=== PATIENT | male | born 1960 | race Caucasian/White ===

== ENCOUNTER 2019-06-13 20:27 | Emergency (ER) | payer OTHER ==
[2019-06-13] MEDS ORDERED: LIDOCAINE 1% INJ 10MG/ML (20 ML MDV) SQ STA (21:44)
--- NOTE | 2019-06-13 21:47 | XR ---
EXAMINATION TYPE: XR hand complete LT DATE OF EXAM: 06/13/2019 COMPARISON: NONE HISTORY: Little finger injury TECHNIQUE: 4 views FINDINGS: There is anterior dislocation of the PIP joint of the little finger. I see no fracture line . IMPRESSION: Anterior dislocation of the PIP joint of the little finger.
[2019-06-13 22:19] VITALS: BP 160/88; PULSE 92; RESP 18; TEMP 96.8
--- NOTE | 2019-06-13 22:24 | ED ---
General Adult HPI - General Chief complaint: Extremity Injury, Upper Stated complaint: Finger injury Time Seen by Provider: 06/13/19 21:18 Source: patient, RN notes reviewed, old records reviewed Mode of arrival: ambulatory Limitations: no limitations - History of Present Illness Initial comments: 59-year-old male patient presented to ED chief complaint dislocation PIP joint left pinky. Patient was wrestling with a friend and got caught underneath him. Patient reports this occurred approximately 5 hours ago. Patient reports that he attempted to reduce himself and was unsuccessful. Denies new injury. Denies any other complaints. Systemic: Pt denies fatigue, fever/chills, rash. Pt denies weakness, night sweats, weight loss. Neuro: Pt denies headache, visual disturbances, syncope or pre-syncope. HEENT: Pt denies ocular discharge or irritation, otalgia, rhinorrhea, pharyngitis or notable lymphadenopathy. Cardiopulmonary: Pt denies chest pain, SOB, heart palpitations, dyspnea on exertion. Abdominal/GI: Pt denies abdominal pain, n/v/d. : Pt denies dysuria, burning w/ urination, frequency/urgency. Denies new onset urinary or bowel incontinence. MSK: Pt denies myalgia, loss of strength or function in extremities. Neuro: Pt denies new onset weakness, paresthesias. - Related Data Allergies Allergy/AdvReac Type Severity Reaction Status Date / Time No Known Allergies Allergy Verified 06/13/19 21:07 Review of Systems ROS Statement: Those systems with pertinent positive or pertinent negative responses have been documented in the HPI. ROS Other: All systems not noted in ROS Statement are negative. Past Medical History Past Medical History: Hypertension History of Any Multi-Drug Resistant Organisms: None Reported Past Surgical History: Appendectomy, Ear Surgery Past Psychological History: No Psychological Hx Reported Smoking Status: Current every day smoker Past Alcohol Use History: Occasional Past Drug Use History: None Reported General Exam - General Exam Comments Initial Comments: Constitutional: NAD, AOX3, Pt has pleasant affect. HEENT: NC/AT, trachea midline, neck supple, no lymphadenopathy. Posterior pharynx non erythematous, without exudates. External ears appear normal, without discharge. Mucous membranes moist. Eyes PERRLA, EOM intact. There is no scleral icterus. No pallor noted. Cardiopulmonary: RRR, no murmurs, rubs or gallops, no JVD noted. Lungs CTAB in anterior and posterior segal. No peripheral edema. Abdominal exam: Abdomen soft and non-distended. Abdomen non-tender to palpation in all 4 quadrants. Bowel sounds active in LLQ. No hepatosplenomegaly. No ecchymosis Neuro: CN II-XII grossly intact. No nuchal rigidity. No raccon eyes, no hernandez sign, no hemotympanum. No cervical spinal tenderness. MSK: Left 5th digit dislocation at PIP joint. Reduced without difficulty, neurovascularly intact. No posterior calf tenderness bilaterally, homans sign negative bilaterally. Posterior tibialis and radial pulse +2 bilaterally. Sensation intact in upper and lower extremities. Full active ROM in upper and lower extremities, 5/5 stregnth. Limitations: no limitations Course Vital Signs 06/13/19 06/13/19 21:01 22:18 Temperature 98.8 F 96.8 F L Pulse Rate 99 92 Respiratory 20 18 Rate Blood Pressure 158/95 160/88 O2 Sat by Pulse 98 97 Oximetry Medical Decision Making - Medical Decision Making 59-year-old male patient presented to ED chief complaint dislocation PIP joint left pinky. Patient was wrestling with a friend and got caught underneath him. Patient reports this occurred approximately 5 hours ago. Patient reports that he attempted to reduce himself and was unsuccessful. Denies new injury. Denies any other complaints. Pt VSS, afebrile. PHysical exam displayed: Left 5th digit dislocation at PIP joint. Reduced without difficulty, neurovascularly intact. I films displayed an anterior dislocation. We'll reduce the difficulty. Neurovascularly intact after procedure. Patient placed a straight finger spli nt. Discharged with PCP and orthopedic follow-up. Disposition Clinical Impression: Finger dislocation Disposition: HOME SELF-CARE Condition: Stable Instructions (If sedation given, give patient instructions): Finger Dislocation (ED) Additional Instructions: Continue to wear straight finger splint. Follow-up with primary care provider and orthopedic consult tomorrow. Return to ER if condition worsens. Is patient prescribed a controlled substance at d/c from ED?: No Referrals: Eder Fontaine DO [Primary Care Provider] - 1-2 days Clifford Murry DO [Medical Doctor] - 1-2 days
== END 2019-06-13 22:28 | disposition home or self-care (01) ==
LOC: EC 20:27
DX: S63.287A Dislocation of proximal interphalangeal joint of left little finger, initial encounter (principal); F17.200 Nicotine dependence, unspecified, uncomplicated; W50.0XXA Accidental hit or strike by another person, initial encounter; Y93.72 Activity, wrestling
CPT/HCPCS: 73130; 99284; 26770; J2001

== ENCOUNTER 2019-07-16 23:25 | Observation (INO) | payer OTHER ==
[2019-07-18 07:44] VITALS: BP 133/82; PULSE 82; RESP 15; TEMP 97.9
== END 2019-07-18 14:19 | disposition home or self-care (01) ==
LOC: EC 23:25 → 4SSUR 07-17 03:42 → INTOOBSV 07-17 03:42 → UNDODISIN 07-18 14:19
PROVIDERS: ADMIT Hospitalist; ATTEND Hospitalist
DX: G47.20 Circadian rhythm sleep disorder, unspecified type (principal); G47.33 Obstructive sleep apnea (adult) (pediatric); E03.9 Hypothyroidism, unspecified; I10 Essential (primary) hypertension; E72.20 Disorder of urea cycle metabolism, unspecified; J44.9 Chronic obstructive pulmonary disease, unspecified; F17.290 Nicotine dependence, other tobacco product, uncomplicated; Z99.89 Dependence on other enabling machines and devices; R41.82 Altered mental status, unspecified; Z79.899 Other long term (current) drug therapy; Z79.890 Hormone replacement therapy; Z98.890 Other specified postprocedural states
CPT/HCPCS: 96361 ×2; 96360; 99285; 36415; 94640 ×2; 36600; 94760; 95819; 93005; 84439; 80053; 84443; 82140; 82805; 82803; 83605; 84484; 85025; 85610; 85730; 81003; 80306; 71045; 70450; G0378 ×2; S4990 ×2; J7512

== ENCOUNTER 2022-01-23 17:06 | Inpatient (IN) | payer OTHER ==
[2022-01-23] MEDS ORDERED: MORPHINE SULFATE 4 MG/ML SYRINGE IV STA (21:16)
[2022-01-23] MEDS ORDERED: SODIUM CHLORIDE 0.9% 1,000 ML IV STA (21:16)
[2022-01-23] MEDS ORDERED: ONDANSETRON 4 MG/2 ML VIAL IVP STA (21:16)
--- NOTE | 2022-01-23 21:20 | ED ---
Abdominal Pain HPI - General Chief Complaint: Abdominal Pain Stated Complaint: abd pain Time Seen by Provider: 01/23/22 21:12 Source: patient, RN notes reviewed Mode of arrival: ambulatory Limitations: no limitations - History of Present Illness Initial Comments: This is a pleasant 61-year-old male with history of hypertension and thyroid disorder. Patient presents to the emergency department complaining of left lower quadrant abdominal pain which has been present for 5 days. Patient is also had a diminished appetite and has not been eating well since Friday. Low- grade, subjective fever. Mild nausea. No vomiting. Mild constipation. No changes in urination. No hematuria. Patient states the pain is constant, exacerbated by palpation, somewhat alleviated by rest, does not really radiate. No headache, no fever or chills, no changes in vision or hearing, no sore throat or difficulty with speech, no neck pain, no chest pain or shortness of breath,, no vomiting, no changes in urination or bowel movements, no numbness or tingling, no extremity pain, no skin rashes or lesions. Past medical, surgical, social, and family history reviewed. - Related Data Home Medications Medication Instructions Recorded Confirmed Ibuprofen [Advil] 400 mg PO BID PRN 01/23/22 01/23/22 Ibuprofen/Diphenhydramine HCl 2 cap PO HS PRN 01/23/22 01/23/22 [Advil Pm Liqui-Gels] Allergies Allergy/AdvReac Type Severity Reaction Status Date / Time No Known Allergies Allergy Verified 01/23/22 23:04 Review of Systems ROS Statement: Those systems with pertinent positive or pertinent negative responses have been documented in the HPI. ROS Other: All systems not noted in ROS Statement are negative. Past Medical History Past Medical History: Hypertension, Sleep Apnea/CPAP/BIPAP, Thyroid Disorder History of Any Multi-Drug Resistant Organisms: None Reported Past Surgical History: Appendectomy, Ear Surgery Past Anesthesia/Blood Transfusion Reactions: No Reported Reaction Additional Past Anesthesia/Blood Transfusion Reaction / Comment(s): never recieved blood Past Psychological History: No Psychological Hx Reported Smoking Status: Current every day smoker Past Alcohol Use History: Occasional Past Drug Use History: None Reported General Exam - General Exam Comments Initial Comments: Patient about distress. Does not appear to be systemically toxic. Vital signs reviewed Limitations: no limitations General appearance: alert, in distress Head exam: Present: atraumatic, normocephalic, normal inspection Eye exam: Present: normal appearance, PERRL, EOMI. Absent: scleral icterus, conjunctival injection, periorbital swelling ENT exam: Present: normal exam, mucous membranes moist Neck exam: Present: normal inspection. Absent: tenderness, meningismus, lymphadenopathy Respiratory exam: Present: normal lung sounds bilaterally. Absent: respiratory distress, wheezes, rales, rhonchi, stridor Cardiovascular Exam: Present: regular rate, normal rhythm, normal heart sounds. Absent: systolic murmur, diastolic murmur, rubs, gallop, clicks GI/Abdominal exam: Present: distended, tenderness, guarding, rebound, normal bowel sounds. Absent: rigid Extremities exam: Present: normal inspection, full ROM, normal capillary refill. Absent: tenderness, pedal edema, joint swelling, calf tenderness Back exam: Present: normal inspection Neurological exam: Present: alert, oriented X3, CN II-XII intact Psychiatric exam: Present: normal affect, normal mood Skin exam: Present: warm, dry, intact, normal color. Absent: rash Course Vital Signs 01/23/22 01/23/22 17:23 23:13 Temperature 98.6 F Pulse Rate 97 82 Respiratory 20 16 Rate Blood Pressure 160/93 125/81 O2 Sat by Pulse 96 92 L Oximetry - Reevaluation(s) Reevaluation #1: 01/23/22 22:42 Medical record is reviewed Patient no distress. Patient is asking for something else for pain. However this is due to her chronic pain and she is been unable to take her [place] while she was here. Patient is informed of results and questions answered Patient in no distress Reevaluation #2: 01/24/22 00:03 Medical record is reviewed Patient somewhat improved after pain medication. - Consultations Consultation #1: Antibiotics started for diverticulitis with abscess formation. Medical Decision Making - Medical Decision Making Given the patient's symptomology, diverticulitis would be #1 differential. Ureteral colic seems less likely. Perforated viscus is possible. Does not appear to be consistent with genital or testicular pathology. Does not appear to be consistent with urinary tract infection. There is no pulsatile mass. Vascular etiology unlikely. Not consistent with cardiopulmonary disease. We will do a general abdominal workup to include troponin and EKG. CT abdomen and pelvis to delineate etiology. Patient's computed tomography scan shows evidence for diverticulitis with a large anterior peridiverticular abscess. Bilateral fat containing inguinal hernias also seen. Abscess is 6 x 4 cm anterior to the sigmoid colon. The case was discussed in detail with ED attending physician. Presentation, findings, treatment plan discussed in detail. Behavioral Health Specialist Dr. Mendiola - Lab Data Result diagrams: 01/23/22 21:35 01/23/22 21:35 Lab Results 01/23/22 01/23/22 01/23/22 Range/Units 21:35 21:35 21:35 WBC 17.1 H (3.8-10.6) k/uL RBC 5.56 (4.30-5.90) m/uL Hgb 16.0 (13.0-17.5) gm/dL Hct 51.1 (39.0-53.0) % MCV 92.0 (80.0-100.0) fL MCH 28.9 (25.0-35.0) pg MCHC 31.4 (31.0-37.0) g/dL RDW 13.4 (11.5-15.5) % Plt Count 330 (150-450) k/uL MPV 7.0 Neutrophils % 80 % Lymphocytes % 8 % Monocytes % 9 % Eosinophils % 0 % Basophils % 1 % Neutrophils # 13.7 H (1.3-7.7) k/uL Lymphocytes # 1.4 (1.0-4.8) k/uL Monocytes # 1.5 H (0-1.0) k/uL Eosinophils # 0.1 (0-0.7) k/uL Basophils # 0.1 (0-0.2) k/uL Sodium 138 (137-145) mmol/L Potassium 3.9 (3.5-5.1) mmol/L Chloride 100 (98-107) mmol/L Carbon Dioxide 26 (22-30) mmol/L Anion Gap 12 mmol/L BUN 17 (9-20) mg/dL Creatinine 1.18 (0.66-1.25) mg/dL Est GFR (CKD-EPI)AfAm 77 (>60 ml/min/1.73 sqM) Est GFR (CKD-EPI)NonAf 66 (>60 ml/min/1.73 sqM) Glucose 80 (74-99) mg/dL Plasma Lactic Acid Roberto Carlos 1.3 (0.7-2.0) mmol/L Calcium 9.0 (8.4-10.2) mg/dL Total Bilirubin 1.1 (0.2-1.3) mg/dL AST 27 (17-59) U/L ALT 25 (4-49) U/L Alkaline Phosphatase 108 (38-126) U/L Troponin I (0.000-0.034) ng/mL C-Reactive Protein 18.0 H (<1.0) mg/dL Total Protein 6.4 (6.3-8.2) g/dL Albumin 3.6 (3.5-5.0) g/dL 01/23/22 Range/Units 21:35 WBC (3.8-10.6) k/uL RBC (4.30-5.90) m/uL Hgb (13.0-17.5) gm/dL Hct (39.0-53.0) % MCV (80.0-100.0) fL MCH (25.0-35.0) pg MCHC (31.0-37.0) g/dL RDW (11.5-15.5) % Plt Count (150-450) k/uL MPV Neutrophils % % Lymphocytes % % Monocytes % % Eosinophils % % Basophils % % Neutrophils # (1.3-7.7) k/uL Lymphocytes # (1.0-4.8) k/uL Monocytes # (0-1.0) k/uL Eosinophils # (0-0.7) k/uL Basophils # (0-0.2) k/uL Sodium (137-145) mmol/L Potassium (3.5-5.1) mmol/L Chloride (98-107) mmol/L Carbon Dioxide (22-30) mmol/L Anion Gap mmol/L BUN (9-20) mg/dL Creatinine (0.66-1.25) mg/dL Est GFR (CKD-EPI)AfAm (>60 ml/min/1.73 sqM) Est GFR (CKD-EPI)NonAf (>60 ml/min/1.73 sqM) Glucose (74-99) mg/dL Plasma Lactic Acid Roberto Carlos (0.7-2.0) mmol/L Calcium (8.4-10.2) mg/dL Total Bilirubin (0.2-1.3) mg/dL AST (17-59) U/L ALT (4-49) U/L Alkaline Phosphatase (38-126) U/L Troponin I <0.012 (0.000-0.034) ng/mL C-Reactive Protein (<1.0) mg/dL Total Protein (6.3-8.2) g/dL Albumin (3.5-5.0) g/dL - EKG Data EKG Comments: EKG done at 2211 and read by the ED attending physician reveals widened QRS interval at 116 ms, other intervals are normal. Rate of 86. Incomplete right bundle-branch block. Poor R-wave progression. Left axis deviation. Left anterior fascicular block. T-wave flattening noted in V5 and V6. Inverted T wa ve in aVL and lead 1. When compared to the previous study from 2019 there is no significant change. Disposition Clinical Impression: Diverticulitis of intestine with abscess Disposition: ADMITTED IP TO THIS HOSP Condition: Stable Referrals: Eder Fontaine DO [Primary Care Provider] - 1-2 days Time of Disposition: 00:04 Decision to Admit Reason: Admit from EC Decision Time: 00:04
[2022-01-23 21:58] LABS: Basophils # (A) 0.1 k/uL (0-0.2); Basophils % (A) 1 %; Eosinophils # (A) 0.1 k/uL (0-0.7); Eosinophils % (A) 0 %; HCT 51.1 % (39.0-53.0); Lymphocytes # (A) 1.4 k/uL (1.0-4.8); Lymphocytes % (A) 8 %; MCH 28.9 pg (25.0-35.0); MCHC 31.4 g/dL (31.0-37.0); Monocytes # (A) 1.5 k/uL (0-1.0); Monocytes % (A) 9 %; Neutrophils # (A) 13.7 k/uL (1.3-7.7); Neutrophils % (A) 80 %; Platelet Count 330 k/uL (150-450); RBC 5.56 m/uL (4.30-5.90); RDW 13.4 % (11.5-15.5); WBC 17.1 k/uL (3.8-10.6)
[2022-01-23 22:12] LABS: Albumin 3.6 g/dL (3.5-5.0); Potassium 3.9 mmol/L (3.5-5.1); Total Bilirubin 1.1 mg/dL (0.2-1.3); Total Protein 6.4 g/dL (6.3-8.2)
--- NOTE | 2022-01-23 22:13 | XR ---
EXAMINATION TYPE: XR chest 1V portable DATE OF EXAM: 01/23/2022 COMPARISON: 07/17/2019 HISTORY: Abdominal pain TECHNIQUE: FINDINGS: There is some linear density at the lung bases. No heart failure seen. Heart size is fairly normal. Mediastinum is normal. IMPRESSION: There is some mild atelectasis at the lung bases not significantly different than last ex am. No heart failure.
[2022-01-23] MEDS ORDERED: HYDROcodone/APAP 5-325MG 1 EACH TAB PO STA ×2 (22:42→22:44)
--- NOTE | 2022-01-23 23:15 | CT ---
EXAMINATION TYPE: CT abdomen pelvis w con DATE OF EXAM: 01/23/2022 COMPARISON: None HISTORY: Left lower quadrant abdominal pain CT DLP: 1731.4 mGycm Automated exposure control for dose reduction was used. CONTRAST: Performed with IV Contrast, patient injected with 100ml mL of Isovue 300. There is some atelectasis at the lung bases. Heart size is normal. No pericardial effusion. No pleura l effusion. Liver and gallbladder appear intact. The bile ducts are not dilated. Spleen appears normal. There is no pancreatic mass. The stomach is intact. There is no adrenal mass. Kidneys show satisfactory contrast opacification. There is no hydronephrosi s. Ureters are not dilated. There is no retroperitoneal adenopathy. Bladder distends smoothly. There are mild bilateral fat-containing inguinal hernias. There is fat stranding in the left lower quadrant with complex fluid collection and fluid level anter ior to the sigmoid colon. This is consistent with peridiverticular abscess that measures 6 x 4 cm. Th ere is surrounding fat stranding. There is no free air in the abdomen. No bowel obstruction. No ascites. Appendix not clearly seen. No sign of thickened appendix. The lumbar vertebra have normal alignment. There is multilevel disc space narrowing and spurring. No compression fracture. The bony pelvis is intact. The hip joints are intact. IMPRESSION: There is evidence for diverticulitis with large anterior peridiverticular abscess. Bilateral fat-containing inguinal hernias. Mild linear infiltrate and atelectasis at both lung bases. .
[2022-01-23] MEDS ORDERED: metroNIDAZOLE-NS PMX 500 MG in SALINE 1 100ML.BAG IVPB STA (23:48)
[2022-01-23] MEDS ORDERED: LEVOFLOXACIN 750MG-D5W PMX 750 MG in DEXTROSE/WATER 1 150ML.BAG IVPB STA (23:48)
[2022-01-24] MEDS ORDERED: ONDANSETRON 4 MG/2 ML VIAL IVP PRN (00:16)
[2022-01-24] MEDS ORDERED: NALOXONE 0.4 MG/ML 1 ML VIAL IV PRN (00:16)
[2022-01-24 00:49] LABS: Amorphous Sediment,Urine Rare /hpf; Appearance,Urine Clear (Clear); Bacteria,Urine Rare /hpf; Bilirubin,Urine Negative (Negative); Blood,Urine Small (Negative); Color,Urine Yellow; Glucose,Urine (UA) Negative (Negative); Hyaline Casts,Urine 3 /lpf (0-2); Ketones,Urine Negative (Negative); Leukocyte Esterase,Urine Negative (Negative); Mucus,Urine Moderate /hpf; Nitrite,Urine Negative (Negative); Protein,Urine 1+ (Negative); RBC,Urine 6 /hpf (0-5); Squamous Epithelial Cell,Urine <1 /hpf (0-4); Urobilinogen,Urine <2.0 mg/dL (<2.0); WBC,Urine 5 /hpf (0-5)
[2022-01-24 00:51] LABS: Specific Gravity,Urine >1.050 (1.001-1.035)
[2022-01-24] MEDS: SODIUM CHLORIDE 0.9% 1,000 ML IV SCH ×3 (01:01→16:23)
[2022-01-24] MEDS ORDERED: metroNIDAZOLE-NS PMX 500 MG in SALINE 1 100ML.BAG IVPB SCH (07:00)
[2022-01-24] MEDS: MORPHINE SULFATE 4 MG/ML SYRINGE IV PRN ×2 (09:26→22:21)
[2022-01-24 11:01] LABS: INR 1.1 (<1.2)
[2022-01-24 11:02] LABS: Prothrombin Time 11.4 sec (9.0-12.0)
--- NOTE | 2022-01-24 12:05 | CA ---
Transthoracic Echo Report Name: Andrews Peña Age: 61 Gender: M : 1960 Exam Date: 01/24/2022 10:58 Exam Location: [facility] [facility] Ht (in): 70 Wt (lb): 230 Ordering Physician: Milly Hudson Attending/Referring Phys: Logistics Planning Engineer Nahomy Sanchez RDCS Procedure CPT: Indications: pre-op Cardiac Hx: Technical Quality: Technically difficult study Contrast 1: Total Dose (mL): Contrast 2: Total Dose (mL): MEASUREMENTS (Male / Female) Normal Values 2D ECHO LV Diastolic Diameter PLAX 5.6 cm 4.2 - 5.9 / 3.9 - 5.3 cm LV Systolic Diameter PLAX 3.5 cm IVS Diastolic Thickness 1.2 cm 0.6 - 1.0 / 0.6 - 0.9 cm LVPW Diastolic Thickness 1.2 cm 0.6 - 1.0 / 0.6 - 0.9 cm LV Relative Wall Thickness 0.4 RV Internal Dim ED PLAX 3.0 cm LA Systolic Diameter LX 3.8 cm 3.0 - 4.0 / 2.7 - 3.8 cm M-MODE Aortic Root Diameter MM 4.1 cm AV Cusp Separation MM 2.4 cm DOPPLER MV Area PHT 3.0 cm??? Mitral E Point Velocity 73.7 cm/s Mitral A Point Velocity 85.9 cm/s Mitral E to A Ratio 0.9 MV Deceleration Time 254.1 ms MV E' Velocity 8.9 cm/s Mitral E to MV E' Ratio 8.2 FINDINGS Left Ventricle Left ventricular ejection fraction is estimated at 60-65 %. Left ventricular cavity size normal. Borderline left ventricular hypertrophy. Right Ventricle Normal right ventricular size and function. Right Atrium Normal right atrial size. Left Atrium Normal left atrial size. Mitral Valve Structurally normal mitral valve. No mitral stenosis, regurgitation or prolapse. Aortic Valve Trileaflet aortic valve. Focal thickening of the aortic valve cusps. Tricuspid Valve Tricuspid valve not well visualized. Pulmonic Valve Structurally normal pulmonic valve. Pericardium Normal pericardium. No pericardial effusion. Aorta Moderate aortic dilatation at the level of the sinuses of valsalva 41 mm. CONCLUSIONS Technically suboptimal study secondary to poor echo windows LV systolic function is normal Mildly dilated aortic root Previewed by: Dr. Tate Bella MD (Electronically Signed) Final Date: 24 January 2022 12:05
[2022-01-24] MEDS: AMPICILLIN-SULBACTAM 3 GM in SODIUM CHLORIDE 0.9% 100 ML IVPB SCH ×2 (13:19→19:22)
--- NOTE | 2022-01-24 13:42 | CT ---
EXAMINATION TYPE: CT guided abscess drainage DATE OF EXAM: 01/24/2022 COMPARISON: CT scan 01/23/2022 HISTORY: Abscess drainage CT DLP: 1076 mGycm The procedure is discussed with the patient, the risks, complications, benefits and alternatives, wer e discussed and any questions were answered. Informed consent was obtained. The patient is placed s upine on the CT table, prepped and draped in the usual sterile fashion. Utilizing a 22-gauge Chiba needle access into left lower quadrant abscess was achieved with passes of an O.018 guidewire. Conversion to a 0.035 system placement of L3 5 guidewire. Serial dilation a Fren ch with placement of an 8.5 Sami drainage catheter. Sample obtained and sent to pathology for richelle sis. All residual fluid within the abscess cavity was aspirated. Postprocedural CT images demonstrate d no residual cavity. Sample sent to pathology. Pathology pending. All elements of maximal barrier and sterile technique were utilized. The patient remained stable throughout the procedure with no im mediate postprocedural complication. IMPRESSION: 1. Successful CT guided left lower quadrant abscess drainage catheter insertion
--- NOTE | 2022-01-24 14:36 | P.GSCN ---
History of Present Illness Consult date: 01/24/22 History of present illness: CHIEF COMPLAINT: Left lower quadrant abdominal pain HISTORY OF PRESENT ILLNESS: This is a 61-year-old male who presented to the hospital with complaints of left lower quadrant abdominal pain 1 week. He reports that his pain is worse with movement. Initially presented with pain 6 out of 10 today pain is ranging from 4-5 out of 10. Patient reports that he had been feverish. Denies any nausea or vomiting. Reports having bowel movements. Denies any history of diverticulitis. Last colonoscopy several years ago was unremarkable per patient. Surgical history includes appendectomy. Patient does use NSAIDs daily. Computed tomography scan of the abdomen and pelvis shows evidence of diverticulitis with large anterior. Diverticular abscess measuring 6 x 4 cm. Also bilateral fat-containing inguinal hernias. Patient started on IV antibiotics. Surgical service consulted in regards to the diverticulitis with abscess. PAST MEDICAL HISTORY: See list. PAST SURGICAL HISTORY: See list. MEDICATIONS: See list. ALLERGIES: See list. SOCIAL HISTORY: No illicit drug use. REVIEW OF SYSTEMS: CONSTITUTIONAL: Denies fever or chills. HEENT: Denies blurred vision, vision changes, or eye pain. Denies hemoptysis ENDOCRINE: Denies heat or cold intolerance. CARDIOVASCULAR: Denies chest pain or pressure. RESPIRATORY: No shortness of breath. GASTROINTESTINAL: Denies abdominal pain. Denies nausea or vomiting. NEURO: Denies history of seizures. PSYCH: No depression or suicidal ideation HEMATOLOGIC: Denies bleeding disorders. LYMPHATIC: The patient denies any lumps and bumps around the neck. GENITOURINARY: Denies any blood in urine or increased urinary frequency. MUSCULOSKELETAL: Denies myalgias. Denies joint swelling. Denies decreased range of motion beyond patients baseline. SKIN: Denies pruitis. Denies rash. PHYSICAL EXAM: VITAL SIGNS: Reviewed GENERAL: Well-developed in no acute distress. HEENT: No sclera icterus. Extraocular movements grossly intact. Moist buccal mucosa. Head is atraumatic, normocephalic. Hears conversational speech. No nasal drainage. NECK: Supple without lymphadenopathy. CHEST: Non-labored respirations and equal bilateral excursions. CARDIOVASCULAR: Palpable 2+ radial pulses. ABDOMEN: Soft. Nondistended. Tenderness to palpation in the left lower quadrant MUSCULOSKELETAL: No clubbing or cyanosis. NEUROLOGIC: No focal or lateralizing signs. Cranial nerves II through XII grossly intact. PSYCH: Appropriate affect. Alert and oriented to person, place and time. SKIN: Well perfused. Good skin turgor. LABORATORY DATA: WBC is 17.1 Hgb 16.0 platelets 330 INR 1.1 Sodium 13 potassium 3.9 creatinine 1.1 Lactic acid 1.3 CRP 18 IMAGING: Computed tomography scan of abdomen and pelvis findings as stated above ASSESSMENT: 1. Acute diverticulitis with abscess formation PLAN: -Consult placed for interventional radiology for CT-guided drainage of abscess -Continue IV antibiotics -Continue pain medication as needed -Consult infectious disease for antibiotic management -Consult cardiology service for cardiac risk assessment for eventual surgical intervention -Consult IR for PICC line placement for IV antibiotics -Continue supportive care -Continue monitor CBC -Keep patient nothing by mouth Thank you for this consultation Physician [employer] Maintenance [employer] note has been reviewed by physician. Signing provider agrees with the documented findings, assessment, and plan of care. REASON FOR CONSULTATION: Abdominal pain HISTORY OF PRESENT ILLNESS: The patient is a 61 year old male who presented with one-week history of left lower quadrant abdominal pain. No prior abdominal pain. Patient colonoscopy less than 5 years ago without colon cancer identified. He had decreased appetite with low-grade fevers. Due to his abdominal pain, patient presented to the emergency room. No blood in stools. PAST MEDICAL HISTORY: See list and reviewed PAST SURGICAL HISTORY: See list and reviewed MEDICATIONS: See list and reviewed ALLERGIES: See list and reviewed SOCIAL HISTORY: See list and reviewed FAMILY HISTORY: See list and reviewed REVIEW OF ORGAN SYSTEMS: CONSTITUTIONAL: Reports fevers no chills. No recent weight loss. EYES: Denies any trouble with vision. No glasses. HEENT: No difficulties with hearing. No nosebleeds. No difficulty swallowing. RESPIRATORY: Has tobacco abuse disorder. Has sleep apnea. CARDIOVASCULAR: Has hypertensive heart disease GASTROINTESTINAL: Denies fatty food intolerance. Denies change in bowel habits and gas bloat. GENITOURINARY: Denies any blood in urine or increased urinary frequency. NEUROLOGICAL: Denies any numbness or tingling along the distal extremities. No seizure disorders or headaches. MUSCULOSKELETAL: Denies any back pain, stiffness or joint arthritis. SKIN: No current skin cancer. No rash. PSYCHIATRIC: Denies current depression or suicidal thoughts. ENDOCRINE: Has hypothyroidism. Denies any blood sugar glucose intolerance. HEME/LYMPHATIC: Denies any lumps and bumps around the neck. No recent deep venous thrombosis. ALLERGY/IMMUNOLOGY: No immunoglobulin therapy. No immune deficiencies. BREAST: Denies current breast lumps, pain or nipple discharge. PHYSICAL EXAM: VITALS: Reviewed CONSTITUTIONAL: Well developed and in no acute distress. EYES: Conjuctivae without sclera icterus. Extraocular movements grossly intact. HEAD, EARS, NOSE, THROAT: Moist buccal mucosa. Head is atraumatic, normocephalic. Has difficulty hearing. No nasal drainage. NECK: Supple. No JV distention. No thyroidomegaly. RESPIRATORY: Non-labored respirations and equal bilateral excursions. No gross wheezes. CARDIOVASCULAR: Palpable 2+ radial pulses. ABDOMEN: Tender left lower quadrant. LYMPH: No neck lymphadenopathy. MUSCULOSKELETAL: Nail and fingers with good capillary refill. SKIN: Warm and well perfused with good skin turgor. NEUROLOGIC: Cranial nerves II through XII grossly intact. No focal or lateralizing signs. PSYCH: Appropriate affect. Alert and oriented to person, place and time. Displays appropriate insight. CLINCAL LABS: Reviewed. WBC over 17,000. IMAGING: Independently reviewed CT of the abdomen and pelvis demonstrates fluid collection of the peritoneum, left lower quadrant due to perforated diverticulitis. Additionally large bilateral fat-containing hernias. RADIOLOGY: Report reviewed CT of the abdomen and pelvis report demonstrates 6 cm left lower quadrant abscess EKG: Incomplete right bundle branch block. Left anterior fascicular block ASSESSMENT: 1. Complicated diverticulitis with abscess PLAN: 1. IV fluid hydration. 2. Recommend interventional radiology consultation for CT-guided drainage of abscess 3. IV antibiotics 4. Recommend PICC line 5. Recommend cardiology risk assessment 6. Recommend infectious disease consultation Thank you for this kind consultation. Past Medical History Past Medical History: Hypertension, Sleep Apnea/CPAP/BIPAP, Thyroid Disorder History of Any Multi-Drug Resistant Organisms: None Reported Past Surgical History: Appendectomy, Ear Surgery Past Anesthesia/Blood Transfusion Reactions: No Reported Reaction Additional Past Anesthesia/Blood Transfusion Reaction / Comm: never recieved blood Past Psychological History: No Psychological Hx Reported Smoking Status: Current every day smoker Past Alcohol Use History: Occasional Past Drug Use History: None Reported - Past Family History Father Family Medical History: No Reported History Additional Family Medical History / Comment(s): Father is . Mother Family Medical History: No Reported History Additional Family Medical History / Comment(s): Mother is healthy Medications and Allergies Home Medications Medication Instructions Recorded Confirmed Type Ibuprofen [Advil] 400 mg PO BID PRN 01/23/22 01/23/22 History Ibuprofen/Diphenhydramine HCl 2 cap PO HS PRN 01/23/22 01/23/22 History [Advil Pm Liqui-Gels] Allergies Allergy/AdvReac Type Severity Reaction Status Date / Time No Known Allergies Allergy Verified 01/23/22 23:04 Surgical - Exam Vital Signs Temp Pulse Resp BP Pulse Ox 98.6 F 97 20 160/93 96 01/23/22 17:23 01/23/22 17:23 01/23/22 17:23 01/23/22 17:23 01/23/22 17:23 Results - Labs 01/25/22 05:39 01/25/22 05:39 Abnormal Lab Results - Last 24 Hours (Table) 01/23/22 01/23/22 01/24/22 Range/Units 21:35 21:35 00:05 WBC 17.1 H (3.8-10.6) k/uL Neutrophils # 13.7 H (1.3-7.7) k/uL Monocytes # 1.5 H (0-1.0) k/uL C-Reactive Protein 18.0 H (<1.0) mg/dL Ur Specific [place]acey >1.050 H (1.001-1.035) Urine Protein 1+ H (Negative) Urine Blood Small H (Negative) Urine RBC 6 H (0-5) /hpf Amorphous Sediment Rare H (None) /hpf Urine Bacteria Rare H (None) /hpf Hyaline Casts 3 H (0-2) /lpf Urine Mucus Moderate H (None) /hpf Diabetes panel 01/23/22 Range/Units 21:35 Sodium 138 (137-145) mmol/L Potassium 3.9 (3.5-5.1) mmol/L Chloride 100 (98-107) mmol/L Carbon Dioxide 26 (22-30) mmol/L BUN 17 (9-20) mg/dL Creatinine 1.18 (0.66-1.25) mg/dL Glucose 80 (74-99) mg/dL Calcium 9.0 (8.4-10.2) mg/dL AST 27 (17-59) U/L ALT 25 (4-49) U/L Alkaline Phosphatase 108 (38-126) U/L Total Protein 6.4 (6.3-8.2) g/dL Albumin 3.6 (3.5-5.0) g/dL Calcium panel 01/23/22 Range/Units 21:35 Calcium 9.0 (8.4-10.2) mg/dL Albumin 3.6 (3.5-5.0) g/dL Pituitary panel 01/23/22 Range/Units 21:35 Sodium 138 (137-145) mmol/L Potassium 3.9 (3.5-5.1) mmol/L Chloride 100 (98-107) mmol/L Carbon Dioxide 26 (22-30) mmol/L BUN 17 (9-20) mg/dL Creatinine 1.18 (0.66-1.25) mg/dL Glucose 80 (74-99) mg/dL Calcium 9.0 (8.4-10.2) mg/dL Adrenal panel 01/23/22 Range/Units 21:35 Sodium 138 (137-145) mmol/L Potassium 3.9 (3.5-5.1) mmol/L Chloride 100 (98-107) mmol/L Carbon Dioxide 26 (22-30) mmol/L BUN 17 (9-20) mg/dL Creatinine 1.18 (0.66-1.25) mg/dL Glucose 80 (74-99) mg/dL Calcium 9.0 (8.4-10.2) mg/dL Total Bilirubin 1.1 (0.2-1.3) mg/dL AST 27 (17-59) U/L ALT 25 (4-49) U/L Alkaline Phosphatase 108 (38-126) U/L Total Protein 6.4 (6.3-8.2) g/dL Albumin 3.6 (3.5-5.0) g/dL
--- NOTE | 2022-01-24 20:37 | P.CRDCN ---
History of Present Illness Consult date: 01/24/22 History of present illness: Patient has a known history of hypertension, sleep apnea, thyroid disorder, and an appendectomy. Cardiac evaluation for preoperative clearance. Patient does not follow with a guest services. Patient presented to the ER with abdominal pain. Troponin negative. EKG shows sinus rhythm with left axis and poor progression. Echocardiogram shows normal LV function without aortic stenosis or significant valvular disease. Patient denies a history of coronary artery disease or congestive heart failure. Patient presented to the hospital with left lower quadrant abdominal pain worsened with movement. He denies chest pain, increasing shortness of breath, dizziness, syncope, or edema. Patient underwent a CT of the abdomen and pelvis that showed evidence of diverticulitis with a large diverticular abscess. Also bilateral fat-containing hernia. Both surgery and interventional radiology consult to determine whether or not the patient to undergo surgery or just abscess drainage. Patient is an acceptable risk for surgery and anesthesia Review of Systems REVIEW OF SYSTEMS At the time of my exam: CONSTITUTIONAL: Denies fever or chills. EYES: Negative for vision changes ENT: Negative for hearing loss CARDIOVASCULAR: Denies chest pain, shortness of breath, diaphoresis, orthopnea, PND or palpitations. VASCULAR: Denies edema RESPIRATORY: Denies cough. GASTROINTESTINAL: Denies abdominal pain, diarrhea, constipation, nausea or vomiting. MUSCULOSKELETAL: Denies myalgias. NEUROLOGIC: Denies numbness, tingling, headache or weakness. ENDOCRINE: Denies fatigue, weight change, polydipsia or polyurina. GENITOURINARY: Denies burning, hematuria or urgency with micturation. HEMATOLOGIC: Denies history of anemia or bleeding. DERMATOLOGY: Denies rash or skin sores PSYCH: Negative for depression or hallucinations. Past Medical History Past Medical History: Hypertension, Sleep Apnea/CPAP/BIPAP, Thyroid Disorder Additional Past Medical History / Comment(s): TIA, pt has been on medications for blood pressure and thyroid but lost insurance and cannot afford to get meds. History of Any Multi-Drug Resistant Organisms: None Reported Past Surgical History: Appendectomy, Ear Surgery Additional Past Surgical History / Comment(s): Bilateral myringotomies/tubes Past Anesthesia/Blood Transfusion Reactions: No Reported Reaction Additional Past Anesthesia/Blood Transfusion Reaction / Comment(s): never recieved blood Smoking Status: Current every day smoker - Past Family History Father Family Medical History: No Reported History Additional Family Medical History / Comment(s): Father is . Mother Family Medical History: No Reported History Additional Family Medical History / Comment(s): Mother is healthy Medications and Allergies Home Medications Medication Instructions Recorded Confirmed Type Ibuprofen [Advil] 400 mg PO BID PRN 01/23/22 01/23/22 History Ibuprofen/Diphenhydramine HCl 2 cap PO HS PRN 01/23/22 01/23/22 History [Advil Pm Liqui-Gels] Allergies Allergy/AdvReac Type Severity Reaction Status Date / Time No Known Allergies Allergy Verified 01/23/22 23:04 Physical Exam Vitals: Vital Signs Temp Pulse Resp BP Pulse Ox 01/24/22 07:47 82 18 126/72 94 L 01/24/22 04:59 98.0 F 83 20 124/69 93 L 01/24/22 02:32 98.0 F 83 16 119/78 94 L 01/23/22 23:13 82 16 125/81 92 L 01/23/22 17:23 98.6 F 97 20 160/93 96 Intake and Output 01/23/22 01/24/22 01/24/22 22:59 06:59 14:59 Other: Weight 104.326 kg 104.326 kg PHYSICAL EXAMINATION VITAL SIGNS: Reviewed General: The patient is awake and alert, in no distress, and does not appear acutely ill. Skin: Skin is warm and dry and no rashes or lesions are noted. Eye: Pupils are equal, round and reactive to light, extra-ocular movements are intact; there is normal conjunctiva bilaterally. Ears, nose, mouth and throat: There are moist mucous membranes and no oral lesions. Neck: The neck is supple, there is no tenderness or JVD. Cardiovascular: There is irregular regular rate and rhythm. No murmur, rub or gallop is appreciated. Respiratory: Lungs are clear to auscultation, respirations are non-labored, breath sounds are equal. Gastrointestinal: Soft, non-distended, non-tender abdomen without masses or organomegaly noted. There is no rebound or guarding present. Bowel sounds are unremarkable. Back: There is no tenderness to palpation in the midline. There is no obvious deformity. Musculoskeletal: Normal ROM, no tenderness, There is no pedal edema. There is no calf tenderness or swelling. Extremities: Mild bilateral pitting edema Vascular: Femoral pulse is normal. Posterior tibial pulses are normal .Dorsalis pedis is palpable. Neurological: CN II-XII intact. There are no obvious motor or sensory deficits. Speech is normal. Psychiatric: Cooperative, appropriate mood & affect, normal judgment Results 01/23/22 21:35 01/23/22 21:35 Cardiac Enzymes 01/23/22 01/23/22 Range/Units 21:35 21:35 AST 27 (17-59) U/L Troponin I <0.012 (0.000-0.034) ng/mL CBC 01/23/22 Range/Units 21:35 WBC 17.1 H (3.8-10.6) k/uL RBC 5.56 (4.30-5.90) m/uL Hgb 16.0 (13.0-17.5) gm/dL Hct 51.1 (39.0-53.0) % Plt Count 330 (150-450) k/uL Comprehensive Metabolic Panel 01/23/22 Range/Units 21:35 Sodium 138 (137-145) mmol/L Potassium 3.9 (3.5-5.1) mmol/L Chloride 100 (98-107) mmol/L Carbon Dioxide 26 (22-30) mmol/L BUN 17 (9-20) mg/dL Creatinine 1.18 (0.66-1.25) mg/dL Glucose 80 (74-99) mg/dL Calcium 9.0 (8.4-10.2) mg/dL AST 27 (17-59) U/L ALT 25 (4-49) U/L Alkaline Phosphatase 108 (38-126) U/L Total Protein 6.4 (6.3-8.2) g/dL Albumin 3.6 (3.5-5.0) g/dL Current Medications Generic Name Dose Route Start Last Admin Trade Name Freq PRN Reason Stop Dose Admin Sodium Chloride 1,000 mls @ 130 mls/hr 01/23/22 23:45 01/24/22 07:42 Saline 0.9% IV 130 mls/hr .[id number] MAXWELL Administration Metronidazole 500 mg/ IV 100 mls @ 100 mls/hr 01/24/22 07:00 01/24/22 07:45 Solution IVPB 100 mls/hr Q6H MAXWELL Administration Protocol Levofloxacin 750 mg/ IV 150 mls @ 100 mls/hr 08/12/22 02:00 Solution IVPB Q24H MAXWELL Protocol Morphine Sulfate 4 mg 01/24/22 00:16 01/24/22 09:26 Morphine Sulfate 4 Mg/Ml Syringe IV 4 mg Q4HR PRN Administration Severe Pain Naloxone HCl 0.2 mg 01/24/22 00:16 Naloxone 0.4 Mg/Ml 1 Ml Vial IV Q2M PRN Opioid Reversal Ondansetron HCl 4 mg 01/24/22 00:16 Ondansetron 4 Mg/2 Ml Vial IVP Q8HR PRN Nausea And Vomiting Intake and Output 01/23/22 01/24/22 01/24/22 22:59 06:59 14:59 Other: Weight 104.326 kg 104.326 kg Patient Weight 01/25/22 06:59 Weight 104.326 kg 01/23/22 21:35 01/23/22 21:35 Assessment and Plan Assessment: Preoperative cardiac clearance Hypertension Diverticular abscess Plan: Patient is an acceptable cardiac riskfor surgery and anesthesia Echocardiogram obtained and reviewed Continue with current cardiac medications Further recommendations based on clinical course The above impression and plan of care have been discussed and directed by the signing physician. Milly Hudson, nurse practitioner, acting as scribe for signing physician.
--- NOTE | 2022-01-24 22:54 | P.CONS ---
History of Present Illness - Reason for Consult Consult date: 01/24/22 - History of Present Illness Patient is a 61-year old male presented to hospital last night for evaluation of abdominal pain patient did complain of pain to the left lower quadrant area that has been going on for the last 5 days and has been progressing getting worse patient describes the pain to be more of a sharp almost 10 or 10 in severity no radiation patient did have decreased appetite did have some nausea but no vomiting and has been running a low-grade fever patient on presentation to the hospital was afebrile patient did have white count 17.1 with a left shift kidney function has been normal liver enzymes are normal urine with mild hematuria patient did have a CT of abdominal pelvis which did shows evidence of diverticulitis with large anterior peridiverticular abscess patient was started on Levaquin and Flagyl infectious disease was consulted for further management of antibiotic therapy consult to surgery who has requested for an IR drainage of this abscess Past Medical History Past Medical History: Hypertension, Sleep Apnea/CPAP/BIPAP, Thyroid Disorder Additional Past Medical History / Comment(s): TIA, pt has been on medications for blood pressure and thyroid but lost insurance and cannot afford to get meds. History of Any Multi-Drug Resistant Organisms: None Reported Past Surgical History: Appendectomy, Ear Surgery Additional Past Surgical History / Comment(s): Bilateral myringotomies/tubes Past Anesthesia/Blood Transfusion Reactions: No Reported Reaction Additional Past Anesthesia/Blood Transfusion Reaction / Comm: never recieved blood Smoking Status: Current every day smoker - Past Family History Father Family Medical History: No Reported History Additional Family Medical History / Comment(s): Father is . Mother Family Medical History: No Reported History Additional Family Medical History / Comment(s): Mother is healthy Medications and Allergies Home Medications Medication Instructions Recorded Confirmed Type Ibuprofen [Advil] 400 mg PO BID PRN 01/23/22 01/23/22 History Ibuprofen/Diphenhydramine HCl 2 cap PO HS PRN 01/23/22 01/23/22 History [Advil Pm Liqui-Gels] Allergies Allergy/AdvReac Type Severity Reaction Status Date / Time No Known Allergies Allergy Verified 01/23/22 23:04 Physical Exam Vitals: Vital Signs Temp Pulse Resp BP Pulse Ox 01/24/22 07:47 82 18 126/72 94 L 01/24/22 04:59 98.0 F 83 20 124/69 93 L 01/24/22 02:32 98.0 F 83 16 119/78 94 L 01/23/22 23:13 82 16 125/81 92 L 01/23/22 17:23 98.6 F 97 20 160/93 96 Intake and Output 01/23/22 01/24/22 01/24/22 22:59 06:59 14:59 Other: Weight 104.326 kg 104.326 kg Results CBC & Chem 7: 01/23/22 21:35 01/23/22 21:35 Labs: Abnormal Lab Results - Last 24 Hours (Table) 01/23/22 01/23/22 01/24/22 Range/Units 21:35 21:35 00:05 WBC 17.1 H (3.8-10.6) k/uL Neutrophils # 13.7 H (1.3-7.7) k/uL Monocytes # 1.5 H (0-1.0) k/uL C-Reactive Protein 18.0 H (<1.0) mg/dL Ur Specific [place] >1.050 H (1.001-1.035) Urine Protein 1+ H (Negative) Urine Blood Small H (Negative) Urine RBC 6 H (0-5) /hpf Amorphous Sediment Rare H (None) /hpf Urine Bacteria Rare H (None) /hpf Hyaline Casts 3 H (0-2) /lpf Urine Mucus Moderate H (None) /hpf Assessment and Plan Plan: 1patient presented to hospital with a complicated diverticulitis with a peridiverticular abscess will need to call for the enteric gram-negative both ae robes and anaerobes in this patient who has not been on any antibiotic in the recent past could be sensitive pathogen. 2we will wait for the IR drainage of this abscess and the fluid should be sent for culture both aerobic anaerobic. 3discontinue FLAGYL. And Flagyl. 4we will start the patient on Unasyn 3 g every 6 hours. We will follow on clinical condition and cultures to further adjust medication if needed Thank you for this consultation will follow this patient along with you
[2022-01-25] MEDS ORDERED: LEVOFLOXACIN 750MG-D5W PMX 750 MG in DEXTROSE/WATER 1 150ML.BAG IVPB SCH (02:00)
[2022-01-25] MEDS: SODIUM CHLORIDE 0.9% 1,000 ML IV SCH ×4 (05:07→23:06)
[2022-01-25] MEDS: AMPICILLIN-SULBACTAM 3 GM in SODIUM CHLORIDE 0.9% 100 ML IVPB SCH ×4 (05:09→17:44)
[2022-01-25 08:51] LABS: HCT 46.9 % (39.6-50.0); HGB 15.4 g/dL (13.0-17.0); MCH 29.8 pg (27.0-32.0); MCHC 32.8 g/dL (32.0-37.0); MCV 90.7 fL (80.0-97.0); Mean Platelet Volume 9.5 fL (9.5-12.2); NRBC Per 100 WBC 0 /100 WBCS (0.0-0.0); Platelet Count 284 X 10*3/uL (140-440); RBC 5.17 X 10*6/uL (4.40-5.60); RDW 13.6 % (11.5-14.5); WBC 13.26 X 10*3/uL (4.50-10.00)
[2022-01-25] MEDS: MORPHINE SULFATE 4 MG/ML SYRINGE IV PRN ×2 (09:38→17:45)
[2022-01-25 10:31] LABS: Basophils % (A) 0.8 %; Eosinophils % (A) 1.5 %; Immature Grans, Automated 0.6 %; Lymphocytes # (A) 1.43 X 10*3/uL (0.90-5.00); Lymphocytes % (A) 10.8 %; Monocytes # (A) 1.15 X 10*3/uL (0.20-1.00); Monocytes % (A) 8.7 %; Neutrophils % (A) 77.6 %
[2022-01-25] MEDS ORDERED: LIDOCAINE 1% INJ 10MG/ML (5 ML VIAL-PF) SQ ONE (10:31)
--- NOTE | 2022-01-25 10:40 | P.PN ---
Subjective Progress Note Date: 01/25/22 Patient has a known history of hypertension, sleep apnea, thyroid disorder, and an appendectomy. Cardiac evaluation for preoperative clearance. 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 Patient presented to the ER with abdominal pain. Troponin negative. EKG shows sinus rhythm with left axis and poor progression. Echocardiogram shows normal LV function without aortic stenosis or significant valvular disease. Patient denies a history of coronary artery disease or congestive heart failure. Patient underwent a CT-guided abscess drainage yesterday. He still reports abdominal pain. He continues to deny chest pain or increased shortness of breath. Blood pressure is elevated will start Toprol-XL 25 mg daily. Will continue to follow patient on an as-needed basis Objective - Vital Signs Vital signs: Vital Signs Temp 98.2 F 01/25/22 08:00 Pulse 88 01/25/22 08:00 Resp 17 01/25/22 08:00 BP 155/88 01/25/22 08:00 Pulse Ox 97 01/25/22 08:00 FiO2 Intake & Output 01/24/22 01/25/22 01/25/22 18:59 06:59 18:59 Intake Total 260 Output Total 400 Balance 260 -400 Weight 104.326 kg Intake: IV 260 Sodium Chloride 0.9% 1, 260 000 ml @ 130 mls/hr IV . Q7H42M [facility] Rx#:[id number] Output: Urine 400 Other: # Voids 1 - Exam PHYSICAL EXAMINATION VITAL SIGNS: Reviewed General: The patient is awake and alert, in no distress, and does not appear acutely ill. Skin: Skin is warm and dry and no rashes or lesions are noted. Eye: Pupils are equal, round and reactive to light, extra-ocular movements are intact; there is normal conjunctiva bilaterally. Ears, nose, mouth and throat: There are moist mucous membranes and no oral lesions. Neck: The neck is supple, there is no tenderness or JVD. Cardiovascular: There is irregular regular rate and rhythm. No murmur, rub or gallop is appreciated. Respiratory: Lungs are clear to auscultation, respirations are non-labored, breath sounds are equal. Gastrointestinal: Soft, non-distended, non-tender abdomen without masses or organomegaly noted. There is no rebound or guarding present. Bowel sounds are unremarkable. Back: There is no tenderness to palpation in the midline. There is no obvious deformity. Musculoskeletal: Normal ROM, no tenderness, There is no pedal edema. There is no calf tenderness or swelling. Extremities: Mild bilateral pitting edema Vascular: Femoral pulse is normal. Posterior tibial pulses are normal .Dorsalis pedis is palpable. Neurological: CN II-XII intact. There are no obvious motor or sensory deficits. Speech is normal. Psychiatric: Cooperative, appropriate mood & affect, normal judgment - Labs CBC & Chem 7: 01/25/22 05:39 01/25/22 05:39 Labs: Abnormal Lab Results - Last 24 Hours (Table) 01/25/22 Range/Units 05:39 WBC 13.26 H (4.50-10.00) X 10*3/uL Microbiology - Last 24 Hours (Table) 01/24/22 13:00 Anaerobic Culture - Preliminary Abdomen 01/24/22 00:40 Blood Culture - Preliminary Blood No Growth after 24 hours 01/24/22 00:50 Blood Culture - Preliminary Blood No Growth after 24 hours Assessment and Plan Assessment: Preoperative cardiac clearance Hypertension Diverticular abscess Plan: Start toprol XL 25 mg daily Patient is an acceptable cardiac risk for surgery and anesthesia Echocardiogram obtained and reviewed Continue with current cardiac medications We will continue to follow the patient on an as-needed basis The above impression and plan of care have been discussed and directed by the signing physician. Milly Hudson, nurse practitioner, acting as scribe for signing physician.
--- NOTE | 2022-01-25 10:57 | IR ---
PICC LINE PLACEMENT: HISTORY: Infection requiring long-term antibiotic therapy PROCEDURE: Ultrasound and fluoroscopic guidance of PICC line placement. COMPLICATIONS: None ANESTHESIA: 1. 1% Lidocaine locally. FINDINGS/TECHNIQUE: The procedure was explained to the patient. The risks, complications, benefits and alternatives were discussed and any questions were answered. Informed consent was obtained. The patient was placed supine on the fluoroscopic table and prepped and draped in the usual sterile fash ion. Utilizing a 21 gauge needle and sonographic and fluoroscopic guidance, access in the right bas ilic vein was achieved and there is placement of a 0.018 guidewire. The vein is patent. A 4-F sheat h was placed over the guidewire. The guidewire and dilator were removed and a 4-F. PICC line was laurence dora through the sheath with the tip at the level of the SVC. The sheath was removed, the catheter wa s flushed and sutured into position. The patient was stable throughout the procedure and remained st able upon discharge from the Department of Radiology. The vein puncture was patent under ultrasound. A crump scale image was obtained to document patency of the vein punctured. All elements of the maximal barrier technique were utilized. FLUOROSCOPY TIME: 0.3 minutes and one image submitted IMPRESSION: Successful PICC line placement under ultrasound and fluoroscopic guidance.
[2022-01-25 11:04] LABS: African American GFR (CKD) 93.7 (60.0-200.0); Albumin 3.5 g/dL (3.8-4.9); Albumin/Globulin Ratio 1.35 (1.60-3.17); Anion Gap 12.3 mmol/L (10.00-18.00); BUN/Creat Ratio 11.5 Ratio (12.00-20.00); Blood Urea Nitrogen 11.5 mg/dL (9.0-27.0); Calcium 8.1 mg/dL (8.7-10.3); Carbon Dioxide 23.7 mmol/L (20.0-27.5); Globulin 2.6 g/dL (1.6-3.3); Non-African American GFR(CKD) 80.9 (60.0-200.0); Total Bilirubin 0.6 mg/dL (0.30-1.20); Total Protein 6.1 g/dL (6.2-8.2)
--- NOTE | 2022-01-25 12:42 | P.PN ---
Subjective Progress Note Date: 01/25/22 CHIEF COMPLAINT: Diverticulitis HISTORY OF PRESENT ILLNESS: The patient is a 61-year-old male who presents in with left lower quadrant abdominal pain with diverticulitis. Mother is at bedside. Patient had a drainage catheter placed with moderate purulence. He has a PICC line. He is tolerating diet. WBC is improving. His pain has some mild improvement. ROS: No reports of nausea and vomiting. No bowel movements. No fevers or chills. No new chest pain. No productive sputum PHYSICAL EXAM: VITAL SIGNS: Reviewed CONSTITUTIONAL: Well developed and in no acute distress. EYES: Conjuctivae without sclera icterus. Extraocular movements grossly intact. HEAD, EARS, NOSE, THROAT: Moist buccal mucosa. Head is atraumatic, normocephalic. Heart of hearing. No nasal drainage. RESPIRATORY: Non-labored respirations and equal bilateral excursions. CARDIOVASCULAR: Palpable 2+ radial pulses. ABDOMEN: Tender left lower quadrant. Drainage catheter identified. No peritonitis. MUSCULOSKELETAL: No gross deformity of the lower extremities noted. No clubbing. No cyanosis. SKIN: Good skin turgor. Well perfused. NEUROLOGIC: Cranial nerves II through XII grossly intact. No focal or lateral izing signs. PSYCH: Appropriate affect. Alert and oriented to person, place and time. CLINICAL LABS: Reviewed. WBC count 17.1-13.3, leukocytosis. MICROBIOLOGY: No growth to date ASSESSMENT: 1. Peritoneal abscess due to diverticulitis PLAN: 1. Continue IV antibiotics. 2. Continue liquid diet. 3. Disposition pending resolution of abdominal pain including resolution of leukocytosis. Objective - Vital Signs Vital signs: Vital Signs Temp 98.2 F 01/25/22 08:00 Pulse 88 01/25/22 08:00 Resp 17 01/25/22 08:00 BP 155/88 01/25/22 08:00 Pulse Ox 97 01/25/22 08:00 FiO2 Intake & Output 01/24/22 01/25/22 01/25/22 18:59 06:59 18:59 Intake Total 260 Output Total 400 600 Balance 260 -400 -600 Weight 104.326 kg Intake: IV 260 Sodium Chloride 0.9% 1, 260 000 ml @ 130 mls/hr IV . Q7H42M [facility] Rx#:[id number] Output: Urine 400 600 Other: # Voids 1 - Labs CBC & Chem 7: 01/25/22 05:39 01/25/22 05:39 Labs: Abnormal Lab Results - Last 24 Hours (Table) 01/25/22 01/25/22 Range/Units 05:39 05:39 WBC 13.26 H (4.50-10.00) X 10*3/uL Immature Gran # 0.08 H (0.00-0.04) X 10*3/uL Neutrophils # 10.30 H (1.80-7.70) X 10*3/uL Monocytes # 1.15 H (0.20-1.00) X 10*3/uL BUN/Creatinine Ratio 11.50 L (12.00-20.00) Ratio Calcium 8.1 L (8.7-10.3) mg/dL Total Protein 6.1 L (6.2-8.2) g/dL Albumin 3.5 L (3.8-4.9) g/dL Albumin/Globulin Ratio 1.35 L (1.60-3.17) g/dL Microbiology - Last 24 Hours (Table) 01/25/22 13:00 Body Fluid Culture - Preliminary Aspirate 01/24/22 13:00 Anaerobic Culture - Preliminary Abdomen 01/24/22 00:40 Blood Culture - Preliminary Blood No Growth after 24 hours 01/24/22 00:50 Blood Culture - Preliminary Blood No Growth after 24 hours
[2022-01-25] MEDS: METOPROLOL SUCCINATE (ER) 25 MG TAB.ER.24H PO SCH (13:22)
[2022-01-25 14:22] VITALS: BMI 33.0
--- NOTE | 2022-01-25 21:49 | P.HPIM ---
History of Present Illness H&P Date: 01/24/22 This is a pleasant 61-year-old white male who was admitted for acute diverticulitis with abscess patient had severe abdominal pain and loss of appetite nausea and abdominal cramps and subsequently brought him to the hospital is admitted he's been seen by general surgery. Admits to chills. Review of Systems Constitutional: Reports fatigue, Reports fever, Reports lethargy, Reports poor appetite Eyes: denies blurred vision Ears: deny: decreased hearing Ears, nose, mouth and throat: Reports dysphagia Cardiovascular: Denies chest pain, Denies palpitations, Denies rapid heart beat Gastrointestinal: Reports abdominal pain, Reports bloating, Reports nausea, Reports vomiting Genitourinary: Denies dysuria Musculoskeletal: Denies fractures, Denies muscle weakness Integumentary: Denies rash Neurological: Denies memory loss, Denies migraines Psychiatric: Denies hallucinations Endocrine: Reports palpitations Past Medical History Past Medical History: Hypertension, Sleep Apnea/CPAP/BIPAP, Thyroid Disorder Additional Past Medical History / Comment(s): TIA, pt has been on medications for blood pressure and thyroid but lost insurance and cannot afford to get meds. History of Any Multi-Drug Resistant Organisms: None Reported Past Surgical History: Appendectomy, Ear Surgery Additional Past Surgical History / Comment(s): Bilateral myringotomies/tubes Past Anesthesia/Blood Transfusion Reactions: No Reported Reaction Additional Past Anesthesia/Blood Transfusion Reaction / Comment(s): never re cieved blood Smoking Status: Current every day smoker - Past Family History Father Family Medical History: No Reported History Additional Family Medical History / Comment(s): Father is . Mother Family Medical History: No Reported History Additional Family Medical History / Comment(s): Mother is healthy Medications and Allergies Home Medications Medication Instructions Recorded Confirmed Type Ibuprofen [Advil] 400 mg PO BID PRN 01/23/22 01/23/22 History Ibuprofen/Diphenhydramine HCl 2 cap PO HS PRN 01/23/22 01/23/22 History [Advil Pm Liqui-Gels] Allergies Allergy/AdvReac Type Severity Reaction Status Date / Time No Known Allergies Allergy Verified 01/23/22 23:04 Physical Exam Osteopathic Statement: *. No significant issues noted on an osteopathic structural exam other than those noted in the History and Physical/Consult. Vitals: Vital Signs Temp Pulse Pulse Resp BP BP Pulse Ox 01/24/22 16:25 98.6 F 80 18 148/94 93 L 01/24/22 15:47 98.9 F 93 20 108/64 97 01/24/22 12:45 18 99/60 96 01/24/22 12:30 101 H 18 100/59 95 01/24/22 12:15 105 H 18 105/64 94 L 01/24/22 07:47 82 18 126/72 94 L 01/24/22 04:59 98.0 F 83 20 124/69 93 L 01/24/22 02:32 98.0 F 83 16 119/78 94 L 01/23/22 23:13 82 16 125/81 92 L Intake and Output 01/24/22 01/24/22 01/24/22 06:59 14:59 22:59 Intake Total 260 Balance 260 Intake: IV 260 Sodium Chloride 0.9% 1, 260 000 ml @ 130 mls/hr IV . Q7H42M [facility] Rx#:[id number] Other: Weight 104.326 kg - Constitutional General appearance: cooperative, mild distress - EENT Eyes: PERRLA ENT: no pharyngeal erythema, no thrush Ears: bilateral: normal - Neck Neck: normal ROM Carotids: bilateral: bruit absent - Respiratory Respiratory: bilateral: diminished - Cardiovascular Rhythm: regular - Gastrointestinal General gastrointestinal: distended, tenderness Localized gastrointestinal: tender: LLQ - Integumentary Integumentary: normal - Neurologic Neurologic: CNII-XII intact - Musculoskeletal Musculoskeletal: gait normal - Psychiatric Psychiatric: A&O x's 3 Results CBC & Chem 7: 01/25/22 05:39 01/25/22 05:39 Labs: Abnormal Lab Results - Last 24 Hours (Table) 01/23/22 01/23/22 01/24/22 Range/Units 21:35 21:35 00:05 WBC 17.1 H (3.8-10.6) k/uL Neutrophils # 13.7 H (1.3-7.7) k/uL Monocytes # 1.5 H (0-1.0) k/uL C-Reactive Protein 18.0 H (<1.0) mg/dL Ur Specific [place] >1.050 H (1.001-1.035) Urine Protein 1+ H (Negative) Urine Blood Small H (Negative) Urine RBC 6 H (0-5) /hpf Amorphous Sediment Rare H (None) /hpf Urine Bacteria Rare H (None) /hpf Hyaline Casts 3 H (0-2) /lpf Urine Mucus Moderate H (None) /hpf Thrombosis Risk Factor Assmnt - Choose All That Apply Any of the Below Risk Factors Present?: Yes Each Factor Represents 1 point: Obesity (BMI >25) Other Risk Factors: Yes Each Risk Factor Represents 2 Points: Age 61-74 years Other congenital or acquired thrombophilia - If yes, enter type in comment: No Thrombosis Risk Factor Assessment Total Risk Factor Score: 3 Thrombosis Risk Factor Assessment Level: Moderate Risk Assessment and Plan (1) Diverticulitis of intestine with abscess Current Visit: Yes Status: Acute Code(s): K57.80 - DVTRCLI OF INTEST, PART U NSP, W PERF AND ABSCESS W/O BLEED SNOMED Code(s): 445275172 (2) COPD (chronic obstructive pulmonary disease) Current Visit: No Status: Acute Code(s): J44.9 - CHRONIC OBSTRUCTIVE PULMONARY DISEASE, UNSPECIFIED SNOMED Code(s): 77365384 Plan: Plan IV antibiotics blood cultures general surgery consultation for further cindy bruce infectious disease consultation place him on IV vancomycin.
--- NOTE | 2022-01-25 22:04 | P.PN ---
Subjective Progress Note Date: 01/25/22 Pleasant 61-year-old white male with a diverticulitis abscess underwent a percutaneous drainage procedure at his work blood cell count has diminished and he feels better he continues on IV antibiotics for bacteremia Objective - Vital Signs Vital signs: Vital Signs Temp 98.5 F 01/25/22 20:00 Pulse 66 01/25/22 20:00 Resp 18 01/25/22 20:00 BP 159/88 01/25/22 20:00 Pulse Ox 98 01/25/22 20:00 FiO2 Intake & Output 01/25/22 01/25/22 01/26/22 06:59 18:59 06:59 Intake Total 1240 Output Total 400 600 Balance -400 640 Weight 104.326 kg Intake: IV 1040 Sodium Chloride 0.9% 1, 1040 000 ml @ 130 mls/hr IV . Q7H42M [facility] Rx#:[id number] Intake, IV Titration 200 Amount Ampicillin-Sulbactam 3 gm 200 In Sodium Chloride 0.9% 100 ml @ 200 mls/hr IVPB Q6HR [facility] Rx#:[id number] Output: Urine 400 600 Other: # Voids 1 - Exam GENERAL: This is a 61-year-old in no apparent distress at the time of examination. Pleasant and cooperative. HEENT: Head is atraumatic, normocephalic. Pupils are equal, round, and reactive to light. Sclerae anicteric. Conjunctivae are clear. Mucus membranes of the mouth are moist. Neck is supple. RESPIRATORY: Clear to auscultation. No wheezes, rales, or rhonchi. No use of accessory muscles. No chest wall tenderness is noted on palpation or with deep breathing. CARDIOVASCULAR: Regular rate and rythm GASTROINTESTINAL: Abdomen is soft nontender improved from previous day percutaneous drain in place in the left lower quadrant. INTEGUMENTARY: No cyanosis. No jaundice. No rashes noted. No cellulitis noted. EXTREMITIES: 2+ peripheral pulses. No evidence of peripheral edema. No calf tenderness noted. NEUROLOGIC: Cranial nerves II-XII intact. PSYCHIATRIC: Awake, alert, and oriented X 3. Appropriate affect. Intact judgement and insight. - Labs CBC & Chem 7: 01/25/22 05:39 01/25/22 05:39 Labs: Abnormal Lab Results - Last 24 Hours (Table) 01/25/22 01/25/22 Range/Units 05:39 05:39 WBC 13.26 H (4.50-10.00) X 10*3/uL Immature Gran # 0.08 H (0.00-0.04) X 10*3/uL Neutrophils # 10.30 H (1.80-7.70) X 10*3/uL Monocytes # 1.15 H (0.20-1.00) X 10*3/uL BUN/Creatinine Ratio 11.50 L (12.00-20.00) Ratio Calcium 8.1 L (8.7-10.3) mg/dL Total Protein 6.1 L (6.2-8.2) g/dL Albumin 3.5 L (3.8-4.9) g/dL Albumin/Globulin Ratio 1.35 L (1.60-3.17) g/dL Microbiology - Last 24 Hours (Table) 01/25/22 13:00 Body Fluid Culture - Preliminary Aspirate 01/24/22 13:00 Anaerobic Culture - Preliminary Abdomen 01/24/22 00:40 Blood Culture - Preliminary Blood No Growth after 24 hours 01/24/22 00:50 Blood Culture - Preliminary Blood No Growth after 24 hours Assessment and Plan (1) Diverticulitis of intestine with abscess Current Visit: Yes Status: Acute Code(s): K57.80 - DVTRCLI OF INTEST, PART UNSP, W PERF AND ABSCESS W/O BLEED SNOMED Code(s): 791692502 (2) COPD (chronic obstructive pulmonary disease) Current Visit: No Status: Acute Code(s): J44.9 - CHRONIC OBSTRUCTIVE PULMONARY DISEASE, UNSPECIFIED SNOMED Code(s): 08827834 (3) Acute sepsis Current Visit: Yes Status: Acute Code(s): A41.9 - SEPSIS, UNSPECIFIED ORGANISM SNOMED Code(s): 09676210 Plan: Continue IV antibiotics most likely patient will need a PICC line infectious disease on the case patient will continue postprocedural care with drainage tube insertion.
[2022-01-26] MEDS: AMPICILLIN-SULBACTAM 3 GM in SODIUM CHLORIDE 0.9% 100 ML IVPB SCH ×4 (00:12→17:40)
[2022-01-26] MEDS: MORPHINE SULFATE 4 MG/ML SYRINGE IV PRN ×4 (00:16→20:35)
[2022-01-26] MEDS: SODIUM CHLORIDE 0.9% 1,000 ML IV SCH ×2 (07:03→16:36)
[2022-01-26] MEDS: METOPROLOL SUCCINATE (ER) 25 MG TAB.ER.24H PO SCH (07:23)
--- NOTE | 2022-01-26 07:23 | P.PN ---
Subjective Progress Note Date: 01/25/22 Principal diagnosis: Perforated diverticulitis and abscess Patient is a 61-year-old male presenting to the hospital with abdominal pain in this patient has been diagnosed with a perforated diverticulitis and abscess status post CT-guided drainage completed on 01/24/2022. On today's evaluation that is 01/25/2022, the patient denies having any fever or chills, patient is feeling slightly better, still having abdominal painand no nausea no vomiting no chest pain or shortness of breath or cough Objective - Vital Signs Vital signs: Vital Signs Temp 98.2 F 01/25/22 08:00 Pulse 88 01/25/22 08:00 Resp 17 01/25/22 08:00 BP 155/88 01/25/22 08:00 Pulse Ox 97 01/25/22 08:00 FiO2 Intake & Output 01/24/22 01/25/22 01/25/22 18:59 06:59 18:59 Intake Total 260 Output Total 400 600 Balance 260 -400 -600 Weight 104.326 kg Intake: IV 260 Sodium Chloride 0.9% 1, 260 000 ml @ 130 mls/hr IV . Q7H42M [facility] Rx#:[id number] Output: Urine 400 600 Other: # Voids 1 - Exam GENERAL DESCRIPTION: Middle-aged male lying in bed in no distress RESPIRATORY SYSTEM: Unlabored breathing , decreased breath sounds at bases HEART: S1 S2 regular rate and rhythm , ABDOMEN: Soft , mild tenderness EXTREMITIES: No edema feet - Labs CBC & Chem 7: 01/25/22 05:39 01/25/22 05:39 Labs: Abnormal Lab Results - Last 24 Hours (Table) 01/25/22 01/25/22 Range/Units 05:39 05:39 WBC 13.26 H (4.50-10.00) X 10*3/uL Immature Gran # 0.08 H (0.00-0.04) X 10*3/uL Neutrophils # 10.30 H (1.80-7.70) X 10*3/uL Monocytes # 1.15 H (0.20-1.00) X 10*3/uL BUN/Creatinine Ratio 11.50 L (12.00-20.00) Ratio Calcium 8.1 L (8.7-10.3) mg/dL Total Protein 6.1 L (6.2-8.2) g/dL Albumin 3.5 L (3.8-4.9) g/dL Albumin/Globulin Ratio 1.35 L (1.60-3.17) g/dL Microbiology - Last 24 Hours (Table) 01/25/22 13:00 Body Fluid Culture - Preliminary Aspirate 01/24/22 13:00 Anaerobic Culture - Preliminary Abdomen 01/24/22 00:40 Blood Culture - Preliminary Blood No Growth after 24 hours 01/24/22 00:50 Blood Culture - Preliminary Blood No Growth after 24 hours Assessment and Plan (1) Diverticulitis of intestine with abscess Current Visit: Yes Status: Acute Code(s): K57.80 - DVTRCLI OF INTEST, PART UNSP, W PERF AND ABSCESS W/O BLEED SNOMED Code(s): 104879131 Plan: 1patient presented to hospital with a complicated diverticulitis with a peridiverticular abscess will need to call for the enteric gram-negative both aerobes and anaerobes in this patient who has not been on any antibiotic in the recent past could be sensitive pathogen. 2patient is status post IR drainage of this abscess and the fluid should has been sent for culture which are currently pending. 3-patient to continue with Unasyn 3 g every 6 hours while waiting for the cultures to finalize. Time with Patient: Less than 30
--- NOTE | 2022-01-26 12:14 | P.PN ---
Subjective Progress Note Date: 01/26/22 The slit 61-year-old gentleman with history of hypertension, sleep apnea, thyroid disorder and prior appendectomy. Presented with abdominal pain was noted to have abscess secondary to acute diverticulitis. Underwent CT-guided abscess drainage on the . Blood pressures been elevated Toprol 25 mg daily was added yesterday. Blood pressure remains elevated. He is apparently not been on any antihypertensive regimen in several years. Upon examination he is sitting up at the side of the bed. Denies any complaints of chest discomfort or shortness of breath. He's had no palpitations, dizziness or lightheadedness. He's had no syncope or near syncope. Denies edema, orthopnea or PND. Objective - Vital Signs Vital signs: Vital Signs Temp 98.5 F 01/26/22 08:02 Pulse 61 01/26/22 08:02 Resp 17 01/26/22 08:02 BP 171/107 01/26/22 08:02 Pulse Ox 97 01/26/22 08:02 FiO2 Intake & Output 01/25/22 01/26/22 01/26/22 18:59 06:59 18:59 Intake Total 1240 Output Total 600 800 30 Balance 640 -800 -30 Weight 104.326 kg Intake: IV 1040 Sodium Chloride 0.9% 1, 1040 000 ml @ 130 mls/hr IV . Q7H42M [facility] Rx#:[id number] Intake, IV Titration 200 Amount Ampicillin-Sulbactam 3 gm 200 In Sodium Chloride 0.9% 100 ml @ 200 mls/hr IVPB Q6HR [facility] Rx#:[id number] Output: Drainage 30 Left Abdomen 30 Urine 600 800 Other: Voiding Method Toilet Urinal - Exam PHYSICAL EXAMINATION: HEENT: Head is atraumatic, normocephalic. Pupils equal, round. Neck is supple. There is no elevated jugular venous pressure. HEART EXAMINATION: Heart sounds regular, S1 and S2 normal. No murmur or gallop heard. CHEST EXAMINATION: Lungs are clear to auscultation and precussion. No chest wall tenderness is noted on palpation or with deep breathing. ABDOMEN: Soft, nontender. Bowel sounds are heard. No organomegaly noted. EXTREMITIES: 2+ peripheral pulses with no evidence of peripheral edema and no calf tenderness noted. NEUROLOGIC patient is awake, alert and oriented x3. . - Labs CBC & Chem 7: 08/12/22 05:39 01/25/22 05:39 Labs: Microbiology - Last 24 Hours (Table) 01/25/22 13:00 Gram Stain - Preliminary Aspirate Body Fluid Culture - Preliminary Gram Neg Bacilli 01/24/22 00:40 Blood Culture - Preliminary Blood No Growth after 48 hours 01/24/22 00:50 Blood Culture - Preliminary Blood No Growth after 48 hours Assessment and Plan Assessment: #1 diverticular abscess, status post CT-guided drainage #2 hypertension, uncontrolled 3 obstructive sleep apnea Plan: From cardiology's perspective we will add lisinopril 10 mg by mouth daily. Continue to monitor the blood pressure depending on response further recommendations will be made. [employer] note has been reviewed, I agree with a documented findings and plan of care. Patient was seen and examined.
[2022-01-26 12:47] LABS: Basophils # (A) 0.2 k/uL (0-0.2); Basophils % (A) 2 %; Eosinophils # (A) 0.1 k/uL (0-0.7); Eosinophils % (A) 1 %; HCT 45.3 % (39.0-53.0); HGB 14.8 gm/dL (13.0-17.5); Lymphocytes % (A) 10 %; MCH 29.5 pg (25.0-35.0); MCHC 32.7 g/dL (31.0-37.0); MCV 90.3 fL (80.0-100.0); Mean Platelet Volume 6.7; Monocytes # (A) 0.6 k/uL (0-1.0); Monocytes % (A) 6 %; Neutrophils # (A) 7.9 k/uL (1.3-7.7); Neutrophils % (A) 79 %; Platelet Count 345 k/uL (150-450); RBC 5.01 m/uL (4.30-5.90); RDW 13.1 % (11.5-15.5); WBC 9.9 k/uL (3.8-10.6)
[2022-01-26] MEDS: lisinopriL 10 MG TAB PO SCH (12:48)
[2022-01-26 13:01] LABS: African American GFR (CKD) >90 (>60 ml/min/1.73 sqM); Anion Gap 9 mmol/L; Blood Urea Nitrogen 9 mg/dL (9-20); Calcium 7.7 mg/dL (8.4-10.2); Carbon Dioxide 28 mmol/L (22-30); Chloride 101 mmol/L (98-107); Glucose 95 mg/dL (74-99); Non-African American GFR(CKD) >90 (>60 ml/min/1.73 sqM); Potassium 3.8 mmol/L (3.5-5.1); Sodium 138 mmol/L (137-145)
--- NOTE | 2022-01-26 15:40 | P.PN ---
Subjective Progress Note Date: 01/26/22 CHIEF COMPLAINT: Diverticulitis HISTORY OF PRESENT ILLNESS: The patient is a 61-year-old male who presents in with left lower quadrant abdominal pain with diverticulitis. Mother is at bedside. He reports his abdominal pain has resolved. "I want egg salad or a tuna fish sandwich." He reports hunger. No fevers or chills. ROS: No reports of nausea and vomiting. No bowel movements. No fevers or chill s. No new chest pain. No productive sputum PHYSICAL EXAM: VITAL SIGNS: Reviewed CONSTITUTIONAL: Well developed and in no acute distress. EYES: Conjuctivae without sclera icterus. Extraocular movements grossly intact. HEAD, EARS, NOSE, THROAT: Moist buccal mucosa. Head is atraumatic, normocep halic. Heart of hearing. No nasal drainage. RESPIRATORY: Non-labored respirations and equal bilateral excursions. CARDIOVASCULAR: Palpable 2+ radial pulses. ABDOMEN: Drainage catheter identified. Non-tender. MUSCULOSKELETAL: No gross deformity of the lower extremities noted. No clubbing. No cyanosis. SKIN: Good skin turgor. Well perfused. NEUROLOGIC: Cranial nerves II through XII grossly intact. No focal or lateralizing signs. PSYCH: Appropriate affect. Alert and oriented to person, place and time. CLINICAL LABS: Reviewed. WBC count 17.1-13.3, now normal 9.9. MICROBIOLOGY: Cultures pending ASSESSMENT: 1. Peritoneal abscess due to diverticulitis PLAN: 1. May start low fiber diet. 2. Continue CT drain Objective - Vital Signs Vital signs: Vital Signs Temp 98.3 F 01/26/22 14:44 Pulse 74 01/26/22 14:44 Resp 18 01/26/22 14:44 BP 188/81 01/26/22 14:44 Pulse Ox 96 01/26/22 14:44 FiO2 Intake & Output 01/25/22 01/26/22 01/26/22 18:59 06:59 18:59 Intake Total 1240 Output Total 600 800 330 Balance 640 -800 -330 Weight 104.326 kg Intake: IV 1040 Sodium Chloride 0.9% 1, 1040 000 ml @ 75 mls/hr IV . [id number] [facility] Rx#:[id number] Intake, IV Titration 200 Amount Ampicillin-Sulbactam 3 gm 200 In Sodium Chloride 0.9% 100 ml @ 200 mls/hr IVPB Q6HR [facility] Rx#:[id number] Output: Drainage 30 Left Abdomen 30 Urine 600 800 300 Other: Voiding Method Toilet Urinal - Labs CBC & Chem 7: 01/26/22 12:36 01/26/22 12:36 Labs: Abnormal Lab Results - Last 24 Hours (Table) 01/26/22 01/26/22 Range/Units 12:36 12:36 Neutrophils # 7.9 H (1.3-7.7) k/uL Calcium 7.7 L (8.4-10.2) mg/dL Microbiology - Last 24 Hours (Table) 01/25/22 13:00 Gram Stain - Preliminary Aspirate Body Fluid Culture - Preliminary Gram Neg Bacilli 01/24/22 00:40 Blood Culture - Preliminary Blood No Growth after 48 hours 01/24/22 00:50 Blood Culture - Preliminary Blood No Growth after 48 hours
--- NOTE | 2022-01-26 18:10 | P.PN ---
Subjective This is a pleasant 61 years old male with past medical history of hypertension, and other medical problems who was admitted for acute diverticulitis with local abscess formation about 6 x 4 cm status post percutaneous drainage interventional radiologist team on 01/24. Patient started feeling better and he is also on antibiotic Unasyn for surrounding infection. History and diet well and is improving gradually. Continue on normal saline 75 mm per hour Bloody fluid is growing gram-negative bacilli. Objective - Vital Signs Vital signs: Vital Signs Temp 98.5 F 01/26/22 08:02 Pulse 61 01/26/22 08:02 Resp 17 01/26/22 08:02 BP 171/107 01/26/22 08:02 Pulse Ox 97 01/26/22 08:02 FiO2 Intake & Output 01/25/22 01/26/22 01/26/22 18:59 06:59 18:59 Intake Total 1240 Output Total 600 800 30 Balance 640 -800 -30 Weight 104.326 kg Intake: IV 1040 Sodium Chloride 0.9% 1, 1040 000 ml @ 130 mls/hr IV . [id number] [facility] Rx#:[id number] Intake, IV Titration 200 Amount Ampicillin-Sulbactam 3 gm 200 In Sodium Chloride 0.9% 100 ml @ 200 mls/hr IVPB Q6HR [facility] Rx#:[id number] Output: Drainage 30 Left Abdomen 30 Urine 600 800 Other: Voiding Method Toilet Urinal - Exam GENERAL: The patient is alert and oriented x3, not in any acute distress. Well developed, well nourished. HEENT: Pupils are round and equally reacting to light. EOMI. No scleral icterus. No conjunctival pallor. Normocephalic, atraumatic. No pharyngeal erythema. No thyromegaly. CARDIOVASCULAR: S1 and S2 present. No murmurs, rubs, or gallops. PULMONARY: Chest is clear to auscultation, no wheezing or crackles. -ABDOMEN: Soft, mild tenderness, nondistended, normoactive bowel sounds. No palpable organomegaly. MUSCULOSKELETAL: No joint swelling or deformity. EXTREMITIES: No cyanosis, clubbing, or pedal edema. NEUROLOGICAL: Gross neurological examination did not reveal any focal deficits. SKIN: No rashes. no petechiae. - Labs CBC & Chem 7: 01/26/22 12:36 01/26/22 12:36 Labs: Microbiology - Last 24 Hours (Table) 01/25/22 13:00 Gram Stain - Preliminary Aspirate Body Fluid Culture - Preliminary Gram Neg Bacilli 01/24/22 00:40 Blood Culture - Preliminary Blood No Growth after 48 hours 01/24/22 00:50 Blood Culture - Preliminary Blood No Growth after 48 hours Assessment and Plan Assessment: Acute diverticulitis with local abscess status post IR drainage on 01/24. Hypertension Intra-abdominal infection This is a pleasant 61 years old male with diverticular abscess status post drainage Continue with Unasyn Continue with normal saline Advance diet as tolerated Surgery consult Lisinopril 10 mg added to metoprolol 25 mg Labs and medication were reviewed.. Continue same treatment. Continue with symptomatic treatment. Resume home medication. Monitor lytes and vitals. DVT and GI prophylaxis. Further recommendations as per clinical course of the patient GI prophylaxis: Protonix Prognosis is guarded
[2022-01-26] MEDS: FAMOTIDINE 20 MG/2 ML VIAL IV SCH (20:35)
[2022-01-27] MEDS: AMPICILLIN-SULBACTAM 3 GM in SODIUM CHLORIDE 0.9% 100 ML IVPB SCH ×2 (00:20→05:06)
[2022-01-27] MEDS: SODIUM CHLORIDE 0.9% 1,000 ML IV SCH (05:06)
[2022-01-27] MEDS: FAMOTIDINE 20 MG/2 ML VIAL IV SCH (08:05)
[2022-01-27] MEDS: METOPROLOL SUCCINATE (ER) 25 MG TAB.ER.24H PO SCH (08:05)
[2022-01-27] MEDS: lisinopriL 10 MG TAB PO SCH (08:05)
--- NOTE | 2022-01-27 10:12 | P.PN ---
Subjective Progress Note Date: 01/26/22 Principal diagnosis: Perforated diverticulitis and abscess Patient is a 61-year-old male presenting to the hospital with abdominal pain in this patient has been diagnosed with a perforated diverticulitis and abscess status post CT-guided drainage completed on 01/24/2022. On today's evaluation that is 01/26/2022, the patient remains to be afebrile, patient is breathing comfortably on room air, patient abdominal pain is currently controlled, no nausea no vomiting no chest pain shortness of breath or cough Objective - Vital Signs Vital signs: Vital Signs Temp 98.3 F 01/26/22 14:44 Pulse 74 01/26/22 14:44 Resp 18 01/26/22 14:44 BP 188/81 01/26/22 14:44 Pulse Ox 96 01/26/22 14:44 FiO2 Intake & Output 01/25/22 01/26/22 01/26/22 18:59 06:59 18:59 Intake Total 1240 Output Total 600 800 330 Balance 640 -800 -330 Weight 104.326 kg Intake: IV 1040 Sodium Chloride 0.9% 1, 1040 000 ml @ 75 mls/hr IV . [id number] [facility] Rx#:[id number] Intake, IV Titration 200 Amount Ampicillin-Sulbactam 3 gm 200 In Sodium Chloride 0.9% 100 ml @ 200 mls/hr IVPB Q6HR [facility] Rx#:[id number] Output: Drainage 30 Left Abdomen 30 Urine 600 800 300 Other: Voiding Method Toilet Urinal - Exam GENERAL DESCRIPTION: Middle-aged male lying in bed in no distress RESPIRATORY SYSTEM: Unlabored breathing , decreased breath sounds at bases HEART: S1 S2 regular rate and rhythm , ABDOMEN: Soft , mild tenderness EXTREMITIES: No edema feet - Labs CBC & Chem 7: 01/26/22 12:36 01/26/22 12:36 Labs: Abnormal Lab Results - Last 24 Hours (Table) 01/26/22 01/26/22 Range/Units 12:36 12:36 Neutrophils # 7.9 H (1.3-7.7) k/uL Calcium 7.7 L (8.4-10.2) mg/dL Microbiology - Last 24 Hours (Table) 01/25/22 13:00 Gram Stain - Preliminary Aspirate Body Fluid Culture - Preliminary Gram Neg Bacilli 01/24/22 00:40 Blood Culture - Preliminary Blood No Growth after 48 hours 01/24/22 00:50 Blood Culture - Preliminary Blood No Growth after 48 hours Assessment and Plan (1) Diverticulitis of intestine with abscess Current Visit: Yes Status: Acute Code(s): K57.80 - DVTRCLI OF INTEST, PART UNSP, W PERF AND ABSCESS W/O BLEED SNOMED Code(s): 743249032 Plan: 1patient presented to hospital with a complicated diverticulitis with a peridiverticular abscess will need to call for the enteric gram-negative both aerobes and anaerobes in this patient who has not been on any antibiotic in the recent past could be sensitive pathogen. 2patient is status post IR drainage of this abscess and the fluid culture are currently pending. 3-patient had shown some clinical improvement and will continue with Unasyn 3 g every 6 hours while waiting for the cultures to finalize. Time with Patient: Less than 30
[2022-01-27] MEDS ORDERED: PIPERACILLIN-TAZOBACTAM 3.375 GM in SODIUM CHLORIDE 0.9% 100 ML IVPB ONE (10:15)
--- NOTE | 2022-01-27 11:57 | P.PN ---
Subjective This is a pleasant 61 years old male with past medical history of hypertension, and other medical problems who was admitted for acute diverticulitis with local abscess formation about 6 x 4 cm status post percutaneous drainage interventional radiologist team on 01/24. Patient started feeling better and he is also on antibiotic Unasyn for surrounding infection. History and diet well and is improving gradually. Continue on normal saline 75 mm per hour Bloody fluid is growing gram-negative bacilli. 01/27/2022 Patient with acute diverticulitis status post local abscess aspiration, is being covered with Unasyn however culture is growing E. coli which loops of very sensitive to Unasyn and antibiotics was adjusted to Zosyn. Follow-up final res ults of the culture. Leukocytosis is improved and down to normal. Patient is afebrile. Her blood pressure was elevated, continue with metoprolol and lisinopril. Patient tolerated regular diet well therefore we will stop his IV fluids which will help with controlling blood pressure. Add subcutaneous heparin for DVT prophylaxis Objective - Vital Signs Vital signs: Vital Signs Temp 97.3 F L 01/27/22 07:52 Pulse 89 01/27/22 07:52 Resp 17 01/27/22 07:52 BP 153/99 01/27/22 07:52 Pulse Ox 93 L 01/27/22 07:52 FiO2 Intake & Output 01/26/22 01/27/22 01/27/22 18:59 06:59 18:59 Output Total 930 300 Balance -930 -300 Output: Drainage 30 Left Abdomen 30 Urine 900 300 Other: Voiding Method Toilet Toilet Urinal Urinal # Voids 2 - Exam GENERAL: The patient is alert and oriented x3, not in any acute distress. Well developed, well nourished. HEENT: Pupils are round and equally reacting to light. EOMI. No scleral icterus. No conjunctival pallor. Normocephalic, atraumatic. No pharyngeal erythema. No thyromegaly. CARDIOVASCULAR: S1 and S2 present. No murmurs, rubs, or gallops. PULMONARY: Chest is clear to auscultation, no wheezing or crackles. -ABDOMEN: Soft, mild tenderness, nondistended, normoactive bowel sounds. No palpable organomegaly. MUSCULOSKELETAL: No joint swelling or deformity. EXTREMITIES: No cyanosis, clubbing, or pedal edema. NEUROLOGICAL: Gross neurological examination did not reveal any focal deficits. SKIN: No rashes. no petechiae. - Labs CBC & Chem 7: 01/26/22 12:36 01/26/22 12:36 Labs: Abnormal Lab Results - Last 24 Hours (Table) 01/26/22 01/26/22 Range/Units 12:36 12:36 Neutrophils # 7.9 H (1.3-7.7) k/uL Calcium 7.7 L (8.4-10.2) mg/dL Microbiology - Last 24 Hours (Table) 01/24/22 13:00 Anaerobic Culture - Preliminary Abdomen 01/25/22 13:00 Gram Stain - Preliminary Aspirate Body Fluid Culture - Preliminary Escherichia coli 01/24/22 00:40 Blood Culture - Preliminary Blood No Growth after 72 hours 01/24/22 00:50 Blood Culture - Preliminary Blood No Growth after 72 hours Assessment and Plan Assessment: Acute diverticulitis with local abscess status post IR drainage on 01/24. Hypertension Intra-abdominal infection secondary to E. coli Plan: This is a pleasant 61 years old male with diverticular abscess status post d rainage Continue continue with Zosyn Discontinue normal saline, and monitor blood pressure. Continue with lisinopril 10 mg and metoprolol 25 mg Continue with regular diet, low fiber diet Surgery consult Lisinopril 10 mg added to metoprolol 25 mg Labs and medication were reviewed.. Continue same treatment. Continue with symptomatic treatment. Resume home medication. Monitor lytes and vitals. DVT and GI prophylaxis. Further recommendations as per clinical course of the patient DVT prophylaxis: Subcutaneous heparin GI prophylaxis: Protonix Prognosis is guarded
[2022-01-27 11:58] LABS: Eosinophils # (A) 0.18 X 10*3/uL (0.04-0.35); Eosinophils % (A) 1.7 %; HCT 45.4 % (39.6-50.0); Immature Grans, Automated 0.8 %; Lymphocytes # (A) 1.57 X 10*3/uL (0.90-5.00); Lymphocytes % (A) 15.1 %; MCH 29.2 pg (27.0-32.0); MCV 88.5 fL (80.0-97.0); Mean Platelet Volume 9.3 fL (9.5-12.2); Monocytes # (A) 0.77 X 10*3/uL (0.20-1.00); Monocytes % (A) 7.4 %; NRBC Per 100 WBC 0 /100 WBCS (0.0-0.0); Platelet Count 331 X 10*3/uL (140-440); RBC 5.13 X 10*6/uL (4.40-5.60); RDW 13.2 % (11.5-14.5)
[2022-01-27 12:40] LABS: African American GFR (CKD) 106.5 (60.0-200.0); Anion Gap 12.1 mmol/L (10.00-18.00); BUN/Creat Ratio 14.11 Ratio (12.00-20.00); Blood Urea Nitrogen 12.7 mg/dL (9.0-27.0); Carbon Dioxide 24.9 mmol/L (20.0-27.5); Non-African American GFR(CKD) 91.9 (60.0-200.0); Potassium 3.7 mmol/L (3.5-5.5)
[2022-01-27] MEDS: amLODIPine 5 MG TAB PO SCH (13:50)
--- NOTE | 2022-01-27 14:30 | P.PN ---
Subjective Progress Note Date: 01/27/22 This is a pleasant 61-year-old gentleman with history of hypertension, sleep apnea, thyroid disorder and prior appendectomy. Presented with abdominal pain was noted to have abscess secondary to acute diverticulitis. Underwent CT- guided abscess drainage on the . Blood pressures been elevated Toprol 25 mg daily was added yesterday. Blood pressure remains elevated. He is apparently not been on any antihypertensive regimen in several years. Upon examination he is sitting up at the side of the bed. Denies any complaints of chest discomfort or shortness of breath. He's had no palpitations, dizziness or lightheadedness. He's had no syncope or near syncope. Denies edema, orthopnea or PND. 01/27/2022 The patient was seen and examined resting comfortably in bed. Blood pressure remains poorly controlled currently on metoprolol succinate 25 mg daily and lisinopril 10 mg daily. Objective - Vital Signs Vital signs: Vital Signs Temp 97.5 F L 01/27/22 13:57 Pulse 64 01/27/22 13:57 Resp 16 01/27/22 13:57 BP 167/99 01/27/22 13:45 Pulse Ox 96 01/27/22 13:57 FiO2 Intake & Output 01/26/22 01/27/22 01/27/22 18:59 06:59 18:59 Output Total 930 310 Balance -930 -310 Output: Drainage 30 10 Left Abdomen 30 10 Urine 900 300 Other: Voiding Method Toilet Toilet Urinal Urinal # Voids 2 - Exam PHYSICAL EXAMINATION: HEENT: Head is atraumatic, normocephalic. Pupils equal, round. Neck is supple. There is no elevated jugular venous pressure. HEART EXAMINATION: Heart sounds regular, S1 and S2 normal. No murmur or gallop heard. CHEST EXAMINATION: Lungs are clear to auscultation and precussion. No chest wall tenderness is noted on palpation or with deep breathing. ABDOMEN: Soft, nontender. Bowel sounds are heard. No organomegaly noted. EXTREMITIES: 2+ peripheral pulses with no evidence of peripheral edema and no calf tenderness noted. NEUROLOGIC patient is awake, alert and oriented x3. . - Labs CBC & Chem 7: 01/27/22 06:40 01/27/22 06:40 Labs: Abnormal Lab Results - Last 24 Hours (Table) 01/27/22 01/27/22 Range/Units 06:40 06:40 WBC 10.40 H (4.50-10.00) X 10*3/uL MPV 9.3 L (9.5-12.2) fL Immature Gran # 0.08 H (0.00-0.04) X 10*3/uL Calcium 8.0 L (8.7-10.3) mg/dL Microbiology - Last 24 Hours (Table) 01/24/22 13:00 Anaerobic Culture - Preliminary Abdomen 01/25/22 13:00 Gram Stain - Preliminary Aspirate Body Fluid Culture - Preliminary Escherichia coli 01/24/22 00:40 Blood Culture - Preliminary Blood No Growth after 72 hours 01/24/22 00:50 Blood Culture - Preliminary Blood No Growth after 72 hours Assessment and Plan Assessment: #1 diverticular abscess, status post CT-guided drainage #2 hypertension, uncontrolled 3 obstructive sleep apnea Plan: From cardiology's perspective we will add amlodipine 5 mg by mouth daily. Continue to monitor the blood pressure depending on response further recommendations will be made. [employer] HEAD note has been reviewed, I agree with a documented findings and plan of care. Patient was seen and examined.
[2022-01-27] MEDS: PIPERACILLIN-TAZOBACTAM 3.375 GM in SODIUM CHLORIDE 0.9% 100 ML IVPB SCH (16:44)
[2022-01-27] MEDS: FAMOTIDINE 20 MG TAB PO SCH (21:22)
[2022-01-27] MEDS: HEPARIN SODIUM,PORCINE/PF 5,000 UNIT/0.5 ML SYRINGE SQ SCH (21:22)
--- NOTE | 2022-01-27 21:33 | P.PN ---
Subjective Progress Note Date: 01/28/22 CHIEF COMPLAINT: Diverticulitis HISTORY OF PRESENT ILLNESS: The patient is a 61-year-old male who presents in with left lower quadrant abdominal pain with diverticulitis. His mother is at bedside. He tolerated low fiber diet. ROS: No reports of nausea and vomiting. No bowel movements. No fevers or chills. No new chest pain. No productive sputum PHYSICAL EXAM: VITAL SIGNS: Reviewed CONSTITUTIONAL: Well developed and in no acute distress. EYES: Conjuctivae without sclera icterus. Extraocular movements grossly intact. HEAD, EARS, NOSE, THROAT: Moist buccal mucosa. Head is atraumatic, nor mocephalic. Heart of hearing. No nasal drainage. RESPIRATORY: Non-labored respirations and equal bilateral excursions. CARDIOVASCULAR: Palpable 2+ radial pulses. ABDOMEN: Drainage catheter identified. Non-tender. MUSCULOSKELETAL: No gross deformity of the lower extremities noted. No clubbi ng. No cyanosis. SKIN: Good skin turgor. Well perfused. NEUROLOGIC: Cranial nerves II through XII grossly intact. No focal or lateralizing signs. PSYCH: Appropriate affect. Alert and oriented to person, place and time. CLINICAL LABS: Reviewed. WBC increased from 9.9-10.4. MICROBIOLOGY: Cultures consistently E. coli resistant to ampicillin and Unasyn ASSESSMENT: 1. Peritoneal abscess due to diverticulitis PLAN: 1. Recommend repeat CT of the abdomen pelvis tomorrow 2. Repeat CBC and CMP 3. Recommend continue IV antibiotics as outpatient Objective - Vital Signs Vital signs: Vital Signs Temp 97.5 F L 01/27/22 13:57 Pulse 64 01/27/22 13:57 Resp 16 01/27/22 13:57 BP 167/99 01/27/22 13:45 Pulse Ox 96 01/27/22 13:57 FiO2 Intake & Output 01/26/22 01/27/22 01/27/22 18:59 06:59 18:59 Output Total 930 310 Balance -930 -310 Output: Drainage 30 10 Left Abdomen 30 10 Urine 900 300 Other: Voiding Method Toilet Toilet Urinal Urinal # Voids 2 - Labs CBC & Chem 7: 01/27/22 06:40 01/27/22 06:40 Labs: Abnormal Lab Results - Last 24 Hours (Table) 01/27/22 01/27/22 Range/Units 06:40 06:40 WBC 10.40 H (4.50-10.00) X 10*3/uL MPV 9.3 L (9.5-12.2) fL Immature Gran # 0.08 H (0.00-0.04) X 10*3/uL Calcium 8.0 L (8.7-10.3) mg/dL Microbiology - Last 24 Hours (Table) 01/24/22 13:00 Anaerobic Culture - Preliminary Abdomen 01/25/22 13:00 Gram Stain - Preliminary Aspirate Body Fluid Culture - Preliminary Escherichia coli 01/24/22 00:40 Blood Culture - Preliminary Blood No Growth after 72 hours 01/24/22 00:50 Blood Culture - Preliminary Blood No Growth after 72 hours
[2022-01-28] MEDS: MORPHINE SULFATE 4 MG/ML SYRINGE IV PRN ×3 (00:03→22:24)
[2022-01-28] MEDS: PIPERACILLIN-TAZOBACTAM 3.375 GM in SODIUM CHLORIDE 0.9% 100 ML IVPB SCH ×3 (00:04→15:29)
[2022-01-28] MEDS ORDERED: IOPAMIDOL CONTRAST (ORAL USE) VIAL PO PRN ×2 (06:00→08:06)
[2022-01-28] MEDS: HEPARIN SODIUM,PORCINE/PF 5,000 UNIT/0.5 ML SYRINGE SQ SCH ×2 (07:03→19:19)
[2022-01-28] MEDS: amLODIPine 5 MG TAB PO SCH (07:03)
[2022-01-28] MEDS: lisinopriL 10 MG TAB PO SCH (07:03)
[2022-01-28] MEDS: FAMOTIDINE 20 MG TAB PO SCH ×2 (07:03→19:20)
[2022-01-28] MEDS: METOPROLOL SUCCINATE (ER) 25 MG TAB.ER.24H PO SCH (07:03)
--- NOTE | 2022-01-28 07:23 | P.PN ---
Subjective Progress Note Date: 01/27/22 Principal diagnosis: Perforated diverticulitis and abscess Patient is a 61-year-old male presenting to the hospital with abdominal pain in this patient has been diagnosed with a perforated diverticulitis and abscess status post CT-guided drainage completed on 01/24/2022. On today's evaluation that is 01/27/2022, the patient denies any fever or any chills, patient is breathing comfortably on room air, patient abdominal pain is currently controlled, the patient denies nausea no vomiting no chest pain shortness of breath or cough Objective - Vital Signs Vital signs: Vital Signs Temp 97.3 F L 01/27/22 07:52 Pulse 89 01/27/22 07:52 Resp 17 01/27/22 07:52 BP 153/99 01/27/22 07:52 Pulse Ox 93 L 01/27/22 07:52 FiO2 Intake & Output 01/26/22 01/27/22 01/27/22 18:59 06:59 18:59 Output Total 930 300 Balance -930 -300 Output: Drainage 30 Left Abdomen 30 Urine 900 300 Other: Voiding Method Toilet Toilet Urinal Urinal # Voids 2 - Exam GENERAL DESCRIPTION: Middle-aged male lying in bed in no distress RESPIRATORY SYSTEM: Unlabored breathing , decreased breath sounds at bases HEART: S1 S2 regular rate and rhythm , ABDOMEN: Soft , mild tenderness EXTREMITIES: No edema feet - Labs CBC & Chem 7: 01/27/22 06:40 01/27/22 06:40 Labs: Abnormal Lab Results - Last 24 Hours (Table) 01/26/22 01/26/22 Range/Units 12:36 12:36 Neutrophils # 7.9 H (1.3-7.7) k/uL Calcium 7.7 L (8.4-10.2) mg/dL Microbiology - Last 24 Hours (Table) 01/25/22 13:00 Gram Stain - Preliminary Aspirate Body Fluid Culture - Preliminary Escherichia coli 01/24/22 00:40 Blood Culture - Preliminary Blood No Growth after 72 hours 01/24/22 00:50 Blood Culture - Preliminary Blood No Growth after 72 hours Assessment and Plan (1) Diverticulitis of intestine with abscess Current Visit: Yes Status: Acute Code(s): K57.80 - DVTRCLI OF INTEST, PART UNSP, W PERF AND ABSCESS W/O BLEED SNOMED Code(s): 126760055 Plan: 1patient presented to hospital with a complicated diverticulitis with a peridiverticular abscess will need to call for the enteric gram-negative both aerobes and anaerobes in this patient who has not been on any antibiotic in the recent past could be sensitive pathogen. 2patient is status post IR drainage of this abscess and the fluid culture grew E. coli which is intermediate sensitivity to Unasyn. 3-patient had shown some clinical improvement, we will switch Unasyn to Zosyn on the basis the sensitivity and more during the course closely Time with Patient: Less than 30
--- NOTE | 2022-01-28 07:46 | P.PN ---
Subjective Progress Note Date: 01/28/22 Principal diagnosis: Hypertension The patient is a pleasant 61-year-old gentleman who was admitted to the hospital with chest discomfort and was diagnosed with diverticular abscess. He underwent CT-guided drainage of the abscess. Requested to see the patient because of hypertension. We had increased the amlodipine 5 mg by mouth daily. The patient was seen this morning. He continues to have chest discomfort. His vitals including the blood pressure has improved. He reports no pain in the chest and no dizziness or lightheadedness or shortness of breath and feeling of heart racing or fluttering. The cardiovascular standpoint, we'll follow-up with the patient On when necessary. Objective - Vital Signs Vital signs: Vital Signs Temp 97.5 F L 01/28/22 02:00 Pulse 71 01/28/22 02:00 Resp 18 01/28/22 02:00 BP 142/94 01/28/22 02:00 Pulse Ox 93 L 01/28/22 02:00 FiO2 Intake & Output 01/27/22 01/28/22 01/28/22 18:59 06:59 18:59 Intake Total 620 Output Total 310 Balance -310 620 Intake: IV 120 Sodium Chloride 0.9% 1, 120 000 ml @ 75 mls/hr IV . [id number] [facility] Rx#:[id number] Oral 500 Output: Drainage 10 Left Abdomen 10 Urine 300 Other: Voiding Method Toilet Urinal # Voids 5 5 - Constitutional General appearance: Present: no acute distress - Respiratory Respiratory: bilateral: CTA - Cardiovascular Rhythm: regular Heart sounds: normal: S1, S2 Abnormal Heart Sounds: Present: systolic murmur - Labs CBC & Chem 7: 01/27/22 06:40 01/27/22 06:40 Labs: Abnormal Lab Results - Last 24 Hours (Table) 01/27/22 01/27/22 Range/Units 06:40 06:40 WBC 10.40 H (4.50-10.00) X 10*3/uL MPV 9.3 L (9.5-12.2) fL Immature Gran # 0.08 H (0.00-0.04) X 10*3/uL Calcium 8.0 L (8.7-10.3) mg/dL Microbiology - Last 24 Hours (Table) 01/24/22 00:40 Blood Culture - Preliminary Blood No Growth after 96 hours 01/24/22 00:50 Blood Culture - Preliminary Blood No Growth after 96 hours 01/24/22 13:00 Anaerobic Culture - Preliminary Abdomen 01/25/22 13:00 Gram Stain - Preliminary Aspirate Body Fluid Culture - Preliminary Escherichia coli Assessment and Plan Assessment: Assessment #1 abdominal discomfort secondary to diverticular abscess and status post CT- guided drainage #2 hypertension #3 sleep apnea Plan #1 the pressure seems to be under reasonable control on the current medical regimen #2 follow-up with the patient on when necessary
--- NOTE | 2022-01-28 09:32 | CT ---
EXAMINATION TYPE: CT abdomen pelvis w con CT DLP: 1600 mGycm, Automated exposure control for dose reduction was used. DATE OF EXAM: 01/28/2022 9:05 AM COMPARISON: CT abdomen pelvis most recent from 01/23/2022, CT guided abscess drainage 01/24/2022 . CLINICAL INDICATION:Male, 61 years old with history of Diverticulitis; Diverticulitis, abscess draina ge TECHNIQUE: Standard CT of the abdomen and pelvis following the administration of 100 cc of Isovue 3 00 IV contrast material and oral contrast. Coronal and sagittal reformats were performed. FINDINGS: LOWER CHEST: Minimal bibasilar atelectasis. Coronary artery calcifications. ABDOMEN LIVER: Unremarkable GALLBLADDER AND BILE DUCTS: Unremarkable. PANCREAS: Unremarkable. SPLEEN: Unremarkable. ADRENAL GLANDS: Unremarkable. KIDNEYS AND URETERS: No evidence of hydronephrosis or renal calculus. The kidneys enhance symmetrical ly. Bilateral subcentimeter hypodense foci which are too small to characterize but likely represent c ysts. Retroaortic left renal vein. PELVIS BLADDER: Incompletely distended but grossly unremarkable. REPRODUCTIVE: Coarse calcifications of the prostate gland are identified. ABDOMEN & PELVIS STOMACH AND BOWEL: Stomach and duodenum are unremarkable. There is focal wall thickening with surroun ding inflammatory changes and contained microperforation involving the sigmoid colon/descending colon redemonstrated (series 21, image 70). There is a similar tract emanating from the small bowel in the left lower quadrant (series 202, age 42). No evidence of bowel obstruction. PERITONEUM: No evidence of pneumoperitoneum or free fluid. Left lower quadrant approach pigtail gamaliel ter demonstrated in the anterior left peritoneum. No residual fluid demonstrated at the site of the p igtail catheter at the location of previous abscess. VASCULATURE: No evidence of aortic aneurysm. Likely mixing artifact within the portal vein. MUSCULOSKELETAL: No acute osseous abnormalities. Multilevel degenerative changes of visualized spine. LYMPH NODES: No gross evidence for lymphadenopathy. SOFT TISSUE/ABDOMINAL WALL: Anasarca. Few foci gas within the left subcutaneous tissues likely from m edication injection. Small fat filled umbilical hernia. Fat filled right inguinal hernia. Small fat f illed left inguinal hernia. IMPRESSION: 1. Interval decrease in size of left lower quadrant pericolonic abscess with pigtail catheter in laurence ce. No residual fluid component identified. 2. Redemonstration of diverticulitis involving the sigmoid colon/descending colon with contained micr operforation. 3. Similar appearing blind end tract emanating from the small bowel in the left lower quadrant concer naz for developing fistula.
[2022-01-28 09:48] LABS: Basophils # (A) 0.2 k/uL (0-0.2); Basophils % (A) 1 %; Eosinophils # (A) 0.2 k/uL (0-0.7); Eosinophils % (A) 2 %; HCT 50.6 % (39.0-53.0); HGB 16.1 gm/dL (13.0-17.5); Lymphocytes # (A) 1.8 k/uL (1.0-4.8); Lymphocytes % (A) 15 %; MCHC 31.9 g/dL (31.0-37.0); MCV 90.7 fL (80.0-100.0); Mean Platelet Volume 6.8; Monocytes # (A) 0.5 k/uL (0-1.0); Monocytes % (A) 4 %; Neutrophils # (A) 9.2 k/uL (1.3-7.7); Neutrophils % (A) 76 %; Platelet Count 389 k/uL (150-450); RBC 5.58 m/uL (4.30-5.90); RDW 13.3 % (11.5-15.5); WBC 12.1 k/uL (3.8-10.6)
--- NOTE | 2022-01-28 11:55 | P.PN ---
Subjective Progress Note Date: 01/28/22 CHIEF COMPLAINT: Diverticulitis HISTORY OF PRESENT ILLNESS: The patient is a 61-year-old male who presents in with left lower quadrant abdominal pain with diverticulitis. Patient reports improvement in the left lower quadrant abdominal pain. He rates his pain about a 3 out of 10. He is having bowel movements. Denies any nausea or vomiting. Patient seen by infectious disease they have switch antibiotics from Unasyn to Zosyn. Wound culture had grown E. coli. Patient currently in a low fiber diet. Afebrile. WBC 10.4-12.1 HGB 16.1 platelets 389. Drainage catheter with 10 mL output yesterday. Repeat Computed tomography scan abdomen and she will decrease in size of left lower quadrant pericolonic abscess with pigtail catheter in place. No residual fluid, identified. Redemonstration of diverticulitis involving the sigmoid colon/descending colon with contained microperforation. Similar appearing blind in tract emanating from the small bowel in the left lower quadrant concerning for developing fistula. CAT scan findings reviewed with Dr. Fish PHYSICAL EXAM: VITAL SIGNS: Reviewed GENERAL: Well-developed in no acute distress. HEENT: No sclera icterus. Extraocular movements grossly intact. Moist buccal mucosa. Head is atraumatic, normocephalic. Hears conversational speech. No nasal drainage. NECK: Supple without lymphadenopathy. CHEST: Non-labored respirations and equal bilateral excursions. CARDIOVASCULAR: Palpable 2+ radial pulses. ABDOMEN: Soft. Nondistended. Left lower quadrant tenderness with palpation MUSCULOSKELETAL: No clubbing or cyanosis. NEUROLOGIC: No focal or lateralizing signs. Cranial nerves II through XII grossly intact. PSYCH: Appropriate affect. Alert and oriented to person, place and time. SKIN: Well perfused. Good skin turgor. ASSESSMENT: 1. Peritoneal abscess due to diverticulitis decrease in size. Status post CT-guided drainage 2. Diverticulitis involving the sigmoid and descending colon with contained microperforation PLAN: -Discontinue drainage tube -Recommend continue IV antibiotics outpatient -Continue to monitor CBC -Anticipate possible discharge on Friday Physician Manager [employer] note has been reviewed by physician. Signing provider agrees with the documented findings, assessment, and plan of care. Objective - Vital Signs Vital signs: Vital Signs Temp 97.5 F L 01/28/22 08:00 Pulse 74 01/28/22 08:00 Resp 16 01/28/22 08:00 BP 118/77 01/28/22 08:00 Pulse Ox 94 L 01/28/22 08:00 FiO2 Intake & Output 01/27/22 01/28/22 01/28/22 18:59 06:59 18:59 Intake Total 620 Output Total 310 Balance -310 620 Intake: IV 120 Sodium Chloride 0.9% 1, 120 000 ml @ 75 mls/hr IV . [id number] [facility] Rx#:[id number] Oral 500 Output: Drainage 10 Left Abdomen 10 Urine 300 Other: Voiding Method Toilet Urinal # Voids 5 5 - Labs CBC & Chem 7: 01/28/22 09:29 01/27/22 06:40 Labs: Abnormal Lab Results - Last 24 Hours (Table) 01/27/22 01/27/22 01/28/22 Range/Units 06:40 06:40 09:29 WBC 10.40 H 12.1 H (4.50-10.00) X 10*3/uL MPV 9.3 L (9.5-12.2) fL Immature Gran # 0.08 H (0.00-0.04) X 10*3/uL Neutrophils # 9.2 H (1.3-7.7) k/uL Calcium 8.0 L (8.7-10.3) mg/dL Microbiology - Last 24 Hours (Table) 01/24/22 00:40 Blood Culture - Preliminary Blood No Growth after 96 hours 01/24/22 00:50 Blood Culture - Preliminary Blood No Growth after 96 hours 01/24/22 13:00 Anaerobic Culture - Preliminary Abdomen 01/25/22 13:00 Gram Stain - Preliminary Aspirate Body Fluid Culture - Preliminary Escherichia coli
--- NOTE | 2022-01-28 23:12 | P.PN ---
Subjective Progress Note Date: 01/28/22 Pleasant 61-year-old white male with a diverticulitis abscess underwent a percutaneous drainage blood cell count has diminished and he feels better he continues on IV antibiotics for bacteremia Objective - Vital Signs Vital signs: Vital Signs Temp 97.3 F L 01/28/22 20:00 Pulse 67 01/28/22 20:00 Resp 19 01/28/22 20:00 BP 128/67 01/28/22 20:00 Pulse Ox 96 01/28/22 20:00 FiO2 Intake & Output 01/28/22 01/28/22 01/29/22 06:59 18:59 06:59 Intake Total 620 Output Total 300 Balance 620 -300 Weight 104.326 kg Intake: IV 120 Sodium Chloride 0.9% 1, 120 000 ml @ 75 mls/hr IV . [id number] [facility] Rx#:[id number] Oral 500 Output: Urine 300 Other: Voiding Method Toilet Urinal # Voids 5 - Exam GENERAL: This is a 61-year-old in no apparent distress at the time of examination. Pleasant and cooperative. HEENT: Head is atraumatic, normocephalic. Pupils are equal, round, and reactive to light. Sclerae anicteric. Conjunctivae are clear. Mucus membranes of the mouth are moist. Neck is supple. RESPIRATORY: Clear to auscultation. No wheezes, rales, or rhonchi. No use of accessory muscles. No chest wall tenderness is noted on palpation or with deep breathing. CARDIOVASCULAR: Regular rate and rythm GASTROINTESTINAL: Abdomen is soft nontender improved from previous day percutaneous drain in place in the left lower quadrant. INTEGUMENTARY: No cyanosis. No jaundice. No rashes noted. No cellulitis noted. EXTREMITIES: 2+ peripheral pulses. No evidence of peripheral edema. No calf tenderness noted. NEUROLOGIC: Cranial nerves II-XII intact. PSYCHIATRIC: Awake, alert, and oriented X 3. Appropriate affect. Intact judgement and insight. - Labs CBC & Chem 7: 01/28/22 09:29 01/27/22 06:40 Labs: Abnormal Lab Results - Last 24 Hours (Table) 01/28/22 Range/Units 09:29 WBC 12.1 H (3.8-10.6) k/uL Neutrophils # 9.2 H (1.3-7.7) k/uL Microbiology - Last 24 Hours (Table) 01/24/22 00:40 Blood Culture - Preliminary Blood No Growth after 96 hours 01/24/22 00:50 Blood Culture - Preliminary Blood No Growth after 96 hours Assessment and Plan (1) Diverticulitis of intestine with abscess Current Visit: Yes Status: Acute Code(s): K57.80 - DVTRCLI OF INTEST, PART UNSP, W PERF AND ABSCESS W/O BLEED SNOMED Code(s): 690932404 (2) COPD (chronic obstructive pulmonary disease) Current Visit: No Status: Acute Code(s): J44.9 - CHRONIC OBSTRUCTIVE PULMONARY DISEASE, UNSPECIFIED SNOMED Code(s): 26398761 (3) Acute sepsis Current Visit: Yes Status: Acute Code(s): A41.9 - SEPSIS, UNSPECIFIED OR GANISM SNOMED Code(s): 94837662
[2022-01-29] MEDS: PIPERACILLIN-TAZOBACTAM 3.375 GM in SODIUM CHLORIDE 0.9% 100 ML IVPB SCH ×2 (00:46→08:45)
--- NOTE | 2022-01-29 07:59 | P.PN ---
Subjective Progress Note Date: 01/28/22 Principal diagnosis: Perforated diverticulitis and abscess Patient is a 61-year-old male presenting to the hospital with abdominal pain in this patient has been diagnosed with a perforated diverticulitis and abscess status post CT-guided drainage completed on 01/24/2022. On today's evaluation that is 01/28/2022, the patient remains to be afebrile, patient is breathing comfortably on room air, patient abdominal pain is currently controlled, the patient denies nausea no vomiting no chest pain shortness of breath or cough, no new symptoms Objective - Vital Signs Vital signs: Vital Signs Temp 97.5 F L 01/28/22 08:00 Pulse 74 01/28/22 08:00 Resp 16 01/28/22 08:00 BP 118/77 01/28/22 08:00 Pulse Ox 94 L 01/28/22 08:00 FiO2 Intake & Output 01/27/22 01/28/22 01/28/22 18:59 06:59 18:59 Intake Total 620 Output Total 310 300 Balance -310 620 -300 Intake: IV 120 Sodium Chloride 0.9% 1, 120 000 ml @ 75 mls/hr IV . [id number] [facility] Rx#:[id number] Oral 500 Output: Drainage 10 Left Abdomen 10 Urine 300 300 Other: Voiding Method Toilet Urinal # Voids 5 5 - Exam GENERAL DESCRIPTION: Middle-aged male lying in bed in no distress RESPIRATORY SYSTEM: Unlabored breathing , decreased breath sounds at bases HEART: S1 S2 regular rate and rhythm , ABDOMEN: Soft , mild tenderness EXTREMITIES: No edema feet - Labs CBC & Chem 7: 01/28/22 09:29 01/27/22 06:40 Labs: Abnormal Lab Results - Last 24 Hours (Table) 01/27/22 01/28/22 Range/Units 06:40 09:29 WBC 12.1 H (3.8-10.6) k/uL Neutrophils # 9.2 H (1.3-7.7) k/uL Calcium 8.0 L (8.7-10.3) mg/dL Microbiology - Last 24 Hours (Table) 01/24/22 00:40 Blood Culture - Preliminary Blood No Growth after 96 hours 01/24/22 00:50 Blood Culture - Preliminary Blood No Growth after 96 hours 01/24/22 13:00 Anaerobic Culture - Preliminary Abdomen 01/25/22 13:00 Gram Stain - Preliminary Aspirate Body Fluid Culture - Preliminary Escherichia coli Assessment and Plan (1) Diverticulitis of intestine with abscess Current Visit: Yes Status: Acute Code(s): K57.80 - DVTRCLI OF INTEST, PART UNSP, W PERF AND ABSCESS W/O BLEED SNOMED Code(s): 268611470 Plan: 1patient presented to hospital with a complicated diverticulitis with a peridiverticular abscess will need to call for the enteric gram-negative both aerobes and anaerobes in this patient who has not been on any antibiotic in the recent past could be sensitive pathogen. 2patient is status post IR drainage of this abscess and the fluid culture grew E. coli which is intermediate sensitivity to Unasyn however sensitive to Zosyn a nd Rocephin. 3-patient had shown some clinical improvement, continue with Zosyn antibiotic will be switched to Rocephin 2 g daily and oral Flagyl 2 weeks on discharge Time with Patient: Less than 30
[2022-01-29 08:42] VITALS: RESP 16
[2022-01-29] MEDS: HEPARIN SODIUM,PORCINE/PF 5,000 UNIT/0.5 ML SYRINGE SQ SCH (08:45)
[2022-01-29] MEDS: METOPROLOL SUCCINATE (ER) 25 MG TAB.ER.24H PO SCH (08:45)
[2022-01-29] MEDS: lisinopriL 10 MG TAB PO SCH (08:45)
[2022-01-29] MEDS: FAMOTIDINE 20 MG TAB PO SCH (08:45)
[2022-01-29] MEDS: amLODIPine 5 MG TAB PO SCH (08:45)
[2022-01-29] MEDS: ACETAMINOPHEN TAB 500 MG TAB PO SCH ×2 (08:45→15:29)
[2022-01-29 09:12] LABS: Basophils # (A) 0.13 X 10*3/uL (0.00-0.10); Basophils % (A) 1.1 %; Eosinophils # (A) 0.22 X 10*3/uL (0.04-0.35); Eosinophils % (A) 1.9 %; HCT 48.8 % (39.6-50.0); HGB 16.2 g/dL (13.0-17.0); Lymphocytes # (A) 2.23 X 10*3/uL (0.90-5.00); Lymphocytes % (A) 19.4 %; MCH 29.5 pg (27.0-32.0); MCHC 33.2 g/dL (32.0-37.0); MCV 88.9 fL (80.0-97.0); Mean Platelet Volume 9.4 fL (9.5-12.2); Monocytes # (A) 0.81 X 10*3/uL (0.20-1.00); NRBC Per 100 WBC 0 /100 WBCS (0.0-0.0); Neutrophils # (A) 8.01 X 10*3/uL (1.80-7.70); Neutrophils % (A) 69.6 %; Platelet Count 370 X 10*3/uL (140-440); RBC 5.49 X 10*6/uL (4.40-5.60); RDW 13.5 % (11.5-14.5); WBC 11.52 X 10*3/uL (4.50-10.00)
--- NOTE | 2022-01-29 11:37 | P.PN ---
Subjective Progress Note Date: 01/29/22 CHIEF COMPLAINT: Diverticulitis HISTORY OF PRESENT ILLNESS: The patient is a 61-year-old male who presents in with left lower quadrant abdominal pain with diverticulitis. Patient reports improvement in the left lower quadrant abdominal pain since admission. He is tolerating diet. The drainage tube is to be discontinued by IR service today. He'll be discharged with IV antibiotics per infectious disease recommendations. Afebrile. WBC down from 12.1-11.52 PHYSICAL EXAM: VITAL SIGNS: Reviewed GENERAL: Well-developed in no acute distress. HEENT: No sclera icterus. Extraocular movements grossly intact. Moist buccal mucosa. Head is atraumatic, normocephalic. Hears conversational speech. No nasal drainage. NECK: Supple without lymphadenopathy. CHEST: Non-labored respirations and equal bilateral excursions. CARDIOVASCULAR: Palpable 2+ radial pulses. ABDOMEN: Soft. Nondistended. Left lower quadrant tenderness with palpation MUSCULOSKELETAL: No clubbing or cyanosis. NEUROLOGIC: No focal or lateralizing signs. Cranial nerves II through XII grossly intact. PSYCH: Appropriate affect. Alert and oriented to person, place and time. SKIN: Well perfused. Good skin turgor. ASSESSMENT: 1. Peritoneal abscess due to diverticulitis decrease in size. Status post CT- guided drainage 2. Diverticulitis involving the sigmoid and descending colon with contained microperforation PLAN: -Patient can be discharged from surgical standpoint when medically cleared -Discontinue drainage tube today by IR service -Outpatient IV antibiotics per infectious disease -Consult dietitian for education on low fiber diet Physician [employer] Work[employer] note has been reviewed by physician. Signing provider agrees with the documented findings, assessment, and plan of care. Objective - Vital Signs Vital signs: Vital Signs Temp 98.5 F 01/29/22 08:00 Pulse 71 01/29/22 08:00 Resp 16 01/29/22 08:00 BP 152/84 01/29/22 08:00 Pulse Ox 95 01/29/22 08:00 FiO2 Intake & Output 01/28/22 01/29/22 01/29/22 18:59 06:59 18:59 Output Total 300 Balance -300 Weight 104.326 kg Output: Urine 300 Other: Voiding Method Toilet Toilet Urinal Urinal # Voids 2 - Labs CBC & Chem 7: 01/29/22 05:46 01/27/22 06:40 Labs: Abnormal Lab Results - Last 24 Hours (Table) 01/29/22 Range/Units 05:46 WBC 11.52 H (4.50-10.00) X 10*3/uL MPV 9.4 L (9.5-12.2) fL Immature Gran # 0.12 H (0.00-0.04) X 10*3/uL Neutrophils # 8.01 H (1.80-7.70) X 10*3/uL Basophils # 0.13 H (0.00-0.10) X 10*3/uL Microbiology - Last 24 Hours (Table) 01/24/22 00:40 Blood Culture - Preliminary Blood No Growth after 120 hours 01/24/22 00:50 Blood Culture - Preliminary Blood No Growth after 120 hours
--- NOTE | 2022-01-29 13:48 | P.DS ---
Providers Date of admission: 01/24/22 01:07 Expected date of discharge: 01/29/22 Attending physician: Eder Fontaine Consults: 01/24/22 00:16 Consult Physician Stat Consulting Provider: Sussy Figueroa Consult Reason/Comments: Diverticulitis with abscess Do you want consulting provider notified?: Already Contacted 01/24/22 10:37 Consult Physician Routine Consulting Provider: Yaritza Guillermo Consult Reason/Comments: antibiotic management, diverticulitis with abscess Do you want consulting provider notified?: Yes 01/24/22 10:38 Consult Physician Routine Consulting Provider: Tate Bella Consult Reason/Comments: cardiac risk assessment Do you want consulting provider notified?: Yes Primary care physician: Eder Fontaine Hospital Course: Final Diagnoses: (1) Diverticulitis of intestine with abscess, status post IR drainage,culture reporting E. coli Current Visit: Yes Status: Acute Code(s): K57.80 - DVTRCLI OF INTEST, PART UNSP, W PERF AND ABSCESS W/O BLEED SNOMED Code(s): 813555233 (2) COPD (chronic obstructive pulmonary disease) Current Visit: No Status: Acute Code(s): J44.9 - CHRONIC OBSTRUCTIVE PULMONARY DISEASE, UNSPECIFIED SNOMED Code(s): 70038518 (3) Acute sepsis Current Visit: Yes Status: Acute Code(s): A41.9 - SEPSIS, UNSPECIFIED ORGANISM SNOMED Code(s): 22270966 Hospital course:Pleasant 61-year-old white male with a diverticulitis abscess underwent a percutaneous drainage blood cell count has diminished and he feels better he continues on IV antibiotics for bacteremia. CT repeated yesterday reporting decreased in size of left lower quadrant. Colonic abscess with pig tail catheter in place, redemonstration of diverticulitis involving the sigmoid colon/descending colon with contained amina roperforation, similar appearing blind in tract emanating from the small bowel in the left lower quadrant concerning for developing fistula. CT further evaluated by surgery and cleared for discharge.Tolerating diet, abdominal pain improved. PICC line present, continues on IV antibiotics as per infectious disease. Patient will be discharged home today in a stable condition with guarded prognosis, pending final recommendations and clearance per infectious disease. The impression and plan of care has been dictated as directed. : I performed a history and examination of this patient, discussed the same with the dictator. I agree with the dictator's note ,documented as a scribe. Any additional findings or plans will be noted. Patient Condition at Discharge: Stable Plan - Discharge Summary Discharge Rx Participant: No New Discharge Prescriptions: New amLODIPine [Norvasc] 5 mg PO DAILY #30 tab Acetaminophen Tab [Tylenol] 1,000 mg PO Q6HR PRN #30 tablet PRN Reason: Pain cefTRIAXone [Rocephin] 2,000 mg IVP Q24HR #14 each Famotidine [Pepcid] 20 mg PO BID #60 tab Metoprolol Succinate (ER) [Toprol XL] 25 mg PO DAILY #30 tab lisinopriL [Zestril] 10 mg PO DAILY #30 tab metroNIDAZOLE [Flagyl] 500 mg PO TID #42 tab Discontinued Ibuprofen/Diphenhydramine HCl [Advil Pm Liqui-Gels] 2 cap PO HS PRN PRN Reason: Pain Ibuprofen [Advil] 400 mg PO BID PRN PRN Reason: Pain Discharge Medication List Acetaminophen Tab [Tylenol] 1,000 mg PO Q6HR PRN #30 tablet 01/29/22 [Rx] Famotidine [Pepcid] 20 mg PO BID #60 tab 01/29/22 [Rx] Metoprolol Succinate (ER) [Toprol XL] 25 mg PO DAILY #30 tab 01/29/22 [Rx] amLODIPine [Norvasc] 5 mg PO DAILY #30 tab 01/29/22 [Rx] cefTRIAXone [Rocephin] 2,000 mg IVP Q24HR #14 each 01/29/22 [Rx] lisinopriL [Zestril] 10 mg PO DAILY #30 tab 01/29/22 [Rx] metroNIDAZOLE [Flagyl] 500 mg PO TID #42 tab 01/29/22 [Rx] Follow up Appointment(s)/Referral(s): Eder Fontaine DO [Primary Care Provider] - 02/04/22 1:40 pm Sussy Figueroa MD [STAFF PHYSICIAN] - 02/14/22 [facility] [NON-STAFF] - 01/30/22 3:30 pm (The office will call you today to set up the time for your appointment tomorrow to begin your outpatient IV antibiotic therapy. You will have daily visits for 2 weeks. ) Yaritza Guillermo MD [STAFF PHYSICIAN] - 02/12/22 2:30 pm Activity/Diet/Wound Care/Special Instructions: Per Dr. Guillermo: Rocephin IV 2gm daily for 2 weeks - first dose January 3.30pm [facility]fusion [facility] CAT scan of Abdomen/Pelvis with contrast ordered for 02/11/[address] Guillermo. Paper order sent with patient.
[2022-01-29 15:17] VITALS: BP 119/88; PULSE 69; TEMP 98.2
[2022-01-29] MEDS ORDERED: metroNIDAZOLE 500 MG TAB PO SCH (16:00)
== END 2022-01-29 16:48 | disposition home health service (06) | DRG 871 ==
LOC: EC 17:06 → 4SSUR 01-24 01:07
PROVIDERS: ADMIT Family Medicine; ATTEND Family Medicine
PROC: 0W9G30Z Drainage of Peritoneal Cavity with Drainage Device, Percutaneous Approach (ICD-10-PCS; principal; 2022-01-24)
PROC: 02HV33Z Insertion of Infusion Device into Superior Vena Cava, Percutaneous Approach (ICD-10-PCS; 2022-01-25)
PROC: B5181ZA Fluoroscopy of Superior Vena Cava using Low Osmolar Contrast, Guidance (ICD-10-PCS; 2022-01-25)
PROC: B548ZZA Ultrasonography of Superior Vena Cava, Guidance (ICD-10-PCS; 2022-01-25)
DX: A41.51 Sepsis due to Escherichia coli [E. coli] (principal); K65.1 Peritoneal abscess; K57.00 Diverticulitis of small intestine with perforation and abscess without bleeding; I45.2 Bifascicular block; J44.9 Chronic obstructive pulmonary disease, unspecified; K59.00 Constipation, unspecified; K40.20 Bilateral inguinal hernia, without obstruction or gangrene, not specified as recurrent; I10 Essential (primary) hypertension; G47.33 Obstructive sleep apnea (adult) (pediatric); F17.210 Nicotine dependence, cigarettes, uncomplicated; H54.7 Unspecified visual loss; Z79.2 Long term (current) use of antibiotics; Z79.899 Other long term (current) drug therapy; Z86.73 Personal history of transient ischemic attack (TIA), and cerebral infarction without residual deficits; Z90.49 Acquired absence of other specified parts of digestive tract
CPT/HCPCS: 36415; 36573; 71045; 74177; 75989; 80048; 80053; 81001; 83605; 84484; 85025; 85610; 86140; 86850; 86900; 86901; 87040; 87070; 87075; 87077; 87186; 87205; 93005; 93306; 96365; 96366; 96367; 96375; 99285

== ENCOUNTER 2022-03-11 09:43 | Inpatient (IN) | payer OTHER ==
--- NOTE | 2022-03-11 09:55 | ED ---
General Adult HPI - General Stated complaint: possible CVA Time Seen by Provider: 03/11/22 09:47 Source: patient, police, EMS, RN notes reviewed Mode of arrival: EMS Limitations: no limitations - History of Present Illness Initial comments: Patient is a pleasant 62-year-old male presenting from assisted with concerns for stroke. Patient believes symptoms started 6 days ago. Patient states he is having some double vision. Patient states right arm does feel a little bit weak. Patient has difficulty with walking however that is chronic. Patient states there is difficulty with speech. Patient does have history of similar symptoms previously associated with stroke. Patient was seen by the nurse practitioner today who had concerns regarding patient's speech. - Related Data Home Medications Medication Instructions Recorded Confirmed Levothyroxine Sodium [Synthroid] 112 mcg PO DAILY 03/11/22 03/11/22 Metoprolol Tartrate [Lopressor] 25 mg PO BID 03/11/22 03/11/22 amLODIPine [Norvasc] 10 mg PO DAILY 03/11/22 03/11/22 Previous Rx's Medication Instructions Recorded lisinopriL [Zestril] 10 mg PO DAILY #30 tab 01/29/22 Allergies Allergy/AdvReac Type Severity Reaction Status Date / Time No Known Allergies Allergy Verified 03/11/22 10:04 Review of Systems ROS Statement: Those systems with pertinent positive or pertinent negative responses have been documented in the HPI. ROS Other: All systems not noted in ROS Statement are negative. Constitutional: Denies: fever Eyes: Reports: as per HPI. Denies: eye pain ENT: Denies: ear pain Respiratory: Denies: cough Cardiovascular: Denies: chest pain Endocrine: Denies: fatigue Gastrointestinal: Denies: abdominal pain Genitourinary: Denies: dysuria Musculoskeletal: Reports: as per HPI. Denies: back pain Skin: Denies: rash Neurological: Reports: as per HPI. Denies: headache Past Medical History Past Medical History: Hypertension, Sleep Apnea/CPAP/BIPAP, Thyroid Disorder Additional Past Medical History / Comment(s): TIA, pt has been on medications for blood pressure and thyroid but lost insurance and cannot afford to get meds. History of Any Multi-Drug Resistant Organisms: None Reported Past Surgical History: Appendectomy, Ear Surgery Additional Past Surgical History / Comment(s): Bilateral myringotomies/tubes Past Anesthesia/Blood Transfusion Reactions: No Reported Reaction Additional Past Anesthesia/Blood Transfusion Reaction / Comment(s): never recieved blood Smoking Status: Current every day smoker - Past Family History Father Family Medical History: No Reported History Additional Family Medical History / Comment(s): Father is . Mother Family Medical History: No Reported History Additional Family Medical History / Comment(s): Mother is healthy General Exam Limitations: no limitations General appearance: alert, in no apparent distress Head exam: Present: normocephalic Eye exam: Present: normal appearance, PERRL, EOMI, nystagmus (Horizontal and vertical) ENT exam: Present: normal oropharynx Neck exam: Present: normal inspection. Absent: tenderness Respiratory exam: Present: normal lung sounds bilaterally Cardiovascular Exam: Present: regular rate, normal rhythm GI/Abdominal exam: Present: soft. Absent: tenderness Extremities exam: Present: tenderness (Mild right anterior hip) Neurological exam: Present: alert, other (Slurred speech) Expanded Neurological exam: Present: other (Horizontal and vertical nystagmus) Cranial nerves: EOM's Intact: Normal Sensory exam: Upper Extremity Light Touch: Normal, Lower Extremity Light Touch: Normal Motor strength exam: RUE: 4, LUE: 5, RLE: 5, LLE: 5 Eye Response: (4) open spontaneously Motor Response: (6) obeys commands Verbal Response: (5) oriented Psychiatric exam: Present: normal affect, normal mood Skin exam: Present: normal color Course Vital Signs 03/11/22 09:49 Temperature 97.6 F Pulse Rate 93 Respiratory 18 Rate Blood Pressure 139/103 O2 Sat by Pulse 95 Oximetry EKG Findings - EKG Comments: EKG Findings:: Sinus rhythm rate 78. VT 181. QRS 94. QT 391. QTC 424. Left axis. Normal QRS. Nonspecific T waves. Medical Decision Making - Medical Decision Making Patient reevaluated and updated. Dr. Fontaine has been paged for admission of his patient Case was discussed with Dr. Fontaine, who will admit. - Lab Data Result diagrams: 03/11/22 10:03 03/11/22 10:03 Lab Results 03/11/22 03/11/22 03/11/22 Range/Units 10:03 10:03 10:03 WBC 11.7 H (3.8-10.6) k/uL RBC 5.55 (4.30-5.90) m/uL Hgb 16.4 (13.0-17.5) gm/dL Hct 50.0 (39.0-53.0) % MCV 90.1 (80.0-100.0) fL MCH 29.5 (25.0-35.0) pg MCHC 32.8 (31.0-37.0) g/dL RDW 13.9 (11.5-15.5) % Plt Count 309 (150-450) k/uL MPV 7.1 Neutrophils % 80 % Lymphocytes % 11 % Monocytes % 7 % Eosinophils % 1 % Basophils % 0 % Neutrophils # 9.4 H (1.3-7.7) k/uL Lymphocytes # 1.3 (1.0-4.8) k/uL Monocytes # 0.8 (0-1.0) k/uL Eosinophils # 0.1 (0-0.7) k/uL Basophils # 0.0 (0-0.2) k/uL PT 10.6 (9.0-12.0) sec INR 1.0 (<1.2) APTT 20.7 L (22.0-30.0) sec Sodium 141 (137-145) mmol/L Potassium 4.6 (3.5-5.1) mmol/L Chloride 104 (98-107) mmol/L Carbon Dioxide 23 (22-30) mmol/L Anion Gap 14 mmol/L BUN 22 H (9-20) mg/dL Creatinine 1.01 (0.66-1.25) mg/dL Est GFR (CKD-EPI)AfAm >90 (>60 ml/min/1.73 sqM) Est GFR (CKD-EPI)NonAf 80 (>60 ml/min/1.73 sqM) Glucose 113 H (74-99) mg/dL Calcium 9.3 (8.4-10.2) mg/dL Total Bilirubin 2.2 H (0.2-1.3) mg/dL AST 31 (17-59) U/L ALT 24 (4-49) U/L Alkaline Phosphatase 109 (38-126) U/L Troponin I (0.000-0.034) ng/mL Total Protein 7.5 (6.3-8.2) g/dL Albumin 4.7 (3.5-5.0) g/dL Serum Alcohol <10 mg/dL 03/11/22 Range/Units 10:03 WBC (3.8-10.6) k/uL RBC (4.30-5.90) m/uL Hgb (13.0-17.5) gm/dL Hct (39.0-53.0) % MCV (80.0-100.0) fL MCH (25.0-35.0) pg MCHC (31.0-37.0) g/dL RDW (11.5-15.5) % Plt Count (150-450) k/uL MPV Neutrophils % % Lymphocytes % % Monocytes % % Eosinophils % % Basophils % % Neutrophils # (1.3-7.7) k/uL Lymphocytes # (1.0-4.8) k/uL Monocytes # (0-1.0) k/uL Eosinophils # (0-0.7) k/uL Basophils # (0-0.2) k/uL PT (9.0-12.0) sec INR (<1.2) APTT (22.0-30.0) sec Sodium (137-145) mmol/L Potassium (3.5-5.1) mmol/L Chloride (98-107) mmol/L Carbon Dioxide (22-30) mmol/L Anion Gap mmol/L BUN (9-20) mg/dL Creatinine (0.66-1.25) mg/dL Est GFR (CKD-EPI)AfAm (>60 ml/min/1.73 sqM) Est GFR (CKD-EPI)NonAf (>60 ml/min/1.73 sqM) Glucose (74-99) mg/dL Calcium (8.4-10.2) mg/dL Total Bilirubin (0.2-1.3) mg/dL AST (17-59) U/L ALT (4-49) U/L Alkaline Phosphatase (38-126) U/L Troponin I <0.012 (0.000-0.034) ng/mL Total Protein (6.3-8.2) g/dL Albumin (3.5-5.0) g/dL Serum Alcohol mg/dL - Radiology Data Radiology results: report reviewed (Computed tomography scan of the brain did not reveal acute intercranial abnormality. There is scalp contusion. Chronic lacunar infarcts.), image reviewed (Chest x-ray and right hip x-ray with pelvis shows no acute process) Disposition Clinical Impression: Cerebrovascular accident (CVA) Disposition: ADMITTED IP TO THIS HOSP Is patient prescribed a controlled substance at d/c from ED?: No Time of Disposition: 10:46
[2022-03-11 10:20] LABS: Basophils % (A) 0 %; Eosinophils # (A) 0.1 k/uL (0-0.7); Eosinophils % (A) 1 %; HGB 16.4 gm/dL (13.0-17.5); Lymphocytes # (A) 1.3 k/uL (1.0-4.8); Lymphocytes % (A) 11 %; MCH 29.5 pg (25.0-35.0); MCHC 32.8 g/dL (31.0-37.0); MCV 90.1 fL (80.0-100.0); Mean Platelet Volume 7.1; Monocytes # (A) 0.8 k/uL (0-1.0); Monocytes % (A) 7 %; Neutrophils # (A) 9.4 k/uL (1.3-7.7); Neutrophils % (A) 80 %; Platelet Count 309 k/uL (150-450); RBC 5.55 m/uL (4.30-5.90); RDW 13.9 % (11.5-15.5); WBC 11.7 k/uL (3.8-10.6)
[2022-03-11 10:34] LABS: ALT 24 U/L (4-49); African American GFR (CKD) >90 (>60 ml/min/1.73 sqM); Albumin 4.7 g/dL (3.5-5.0); Alcohol <10 mg/dL; Anion Gap 14 mmol/L; Blood Urea Nitrogen 22 mg/dL (9-20); Calcium 9.3 mg/dL (8.4-10.2); Carbon Dioxide 23 mmol/L (22-30); Chloride 104 mmol/L (98-107); Glucose 113 mg/dL (74-99); Non-African American GFR(CKD) 80 (>60 ml/min/1.73 sqM); Sodium 141 mmol/L (137-145); Total Bilirubin 2.2 mg/dL (0.2-1.3); Total Protein 7.5 g/dL (6.3-8.2)
[2022-03-11 10:37] LABS: AST 31 U/L (17-59); Alkaline Phosphatase 109 U/L (38-126); Potassium 4.6 mmol/L (3.5-5.1); Prothrombin Time 10.6 sec (9.0-12.0)
--- NOTE | 2022-03-11 10:40 | XR ---
EXAMINATION TYPE: XR chest 2V DATE OF EXAM: 03/11/2022 COMPARISON: Chest x-ray January 23, 2022 HISTORY: Altered mental status and weakness. TECHNIQUE: Frontal and lateral views of the chest are obtained. FINDINGS: Elevated left hemidiaphragm is redemonstrated. There is some chronic change bilaterally wit hout suspicious new focal air space opacity, pleural effusion, or pneumothorax seen. The cardiac lynsey houette size is stable and within normal limits. The osseous structures are intact. IMPRESSION: No acute process. No significant change from prior.
--- NOTE | 2022-03-11 10:41 | CT ---
EXAMINATION TYPE: CT brain wo con DATE OF EXAM: 03/11/2022 COMPARISON: 07/17/2019 HISTORY: 62-year-old male neurologic deficit, acute, stroke suspected, FALL TECHNIQUE: Examination was done in axial plane without intravenous contrast. Coronal and sagittal r econstructions performed. CT DLP: 1158.4 mGycm Automated exposure control for dose reduction was used. FINDINGS: There is a right posterior parietal scalp contusion. No underlying calvarial fracture. There may be a n additional mild anterior left frontal scalp contusion. Interval formation of now old lacunar infarct right basal ganglia There is no evidence of acute intracranial hemorrhage, acute ischemic changes, mass, mass-effect, or extra-axial fluid collection. There is no effacement of cerebral sulci or basal subarachnoid cister ns. There is no hydrocephalus. There is no midline shift. Sargent-white matter distinction is preserv ed. Partially empty sella. Slight leftward nasal septal deviation. Trace mucosal thickening ethmoid air cells. Orbits and globes are intact. IMPRESSION: Posterior right parietal scalp contusion. There may be a smaller anterior left scalp contusion. No un derlying calvarial fracture. Now chronic lacunar infarct right basal ganglia. No acute intracranial a bnormality seen.
--- NOTE | 2022-03-11 10:43 | XR ---
EXAMINATION TYPE: AP view pelvis and 2 views right hip DATE OF EXAM: 03/11/2022 COMPARISON: NONE HISTORY: 62-year-old male with altered mental status, fall, pain FINDINGS: SI joints appear symmetric and intact as does the pubic symphysis. There is mild degenerative change of both hips with some subchondral cystic change and marginal spurring. No acute fracture, subluxatio n, dislocation. Some degenerative labral ossification versus tiny os acetabuli superolateral margin o f the right acetabulum. IMPRESSION: Mild bilateral hip OA. No acute osseous abnormality seen.
[2022-03-11 10:44] LABS: Partial Thromboplastin Time 20.7 sec (22.0-30.0)
[2022-03-11] MEDS ORDERED: ASPIRIN 325 MG TAB PO STA (10:46)
[2022-03-11] MEDS ORDERED: ATORVASTATIN 80 MG TAB PO STA (12:32)
[2022-03-11 12:45] LABS: Amphetamine Screen,Urine Not Detected (NotDetected); Barbiturate Screen,Urine Not Detected (NotDetected); Benzodiazepines Screen,Urine Not Detected (NotDetected); Cocaine Screen,Urine Not Detected (NotDetected); Methadone Screen, Urine Not Detected (NotDetected); Opiate Screen,Urine Not Detected (NotDetected); Oxycodone Screen, Urine Not Detected (NotDetected); Phencyclidine Screen,Urine Not Detected (NotDetected); Tricyclic Antidepressant,Urine Not Detected (NotDetected); Urn Cannabinoid Scrn Not Detected (NotDetected)
--- NOTE | 2022-03-11 12:58 | P.CNNES ---
History of Present Illness Consult date: 03/11/22 Requesting physician: Darrell Small Reason for Consult: cva History of Present Illness: This is a 62-year-old gentleman with history of stroke, hypertension who presented emergency department for concern of a stroke. Some of the history is obtained by the ED physician. It seems to the patient's symptoms began about 6 days ago prior to presented to our facility and he was complaining with some double vision, right arm weakness and speech difficulty. Patient presented the from [facility]. Patient notified me that he had that 2 strokes in the past but he denies being on any antiplatelet or statin use. He could not tell me regarding that his history of strokes in the past. He does say that he has hypertension. Some other workup during this hospital visit consisted of: Initial serum glucose is 113. AST and ALT is within normal limits Sodium and creatinine is within normal limits. CT of the head is reported as posterior right parietal scalp contusion. There may be a similar anterior left scalp contusion. No underlying Tracy burial fracture. Now chronic lacunar infarct in the right basal ganglia. No acute int racranial abnormality seen. I personally reviewed the CT of the head and I agree with report. EKG is reported as sinus rhythm. Left axis deviation. ST deviation and moderate T-wave abnormality. Abnormal EKG. Review of Systems Review of system: The 12 point system was reviewed and apparent positive and negative per HPI. Past Medical History Past Medical History: Hypertension, Sleep Apnea/CPAP/BIPAP, Thyroid Disorder Additional Past Medical History / Comment(s): TIA, pt has been on medications for blood pressure and thyroid but lost insurance and cannot afford to get meds. History of Any Multi-Drug Resistant Organisms: None Reported Past Surgical History: Appendectomy, Ear Surgery Additional Past Surgical History / Comment(s): Bilateral myringotomies/tubes Past Anesthesia/Blood Transfusion Reactions: No Reported Reaction Additional Past Anesthesia/Blood Transfusion Reaction / Comment(s): never recieved blood Smoking Status: Current every day smoker - Past Family History Father Family Medical History: No Reported History Additional Family Medical History / Comment(s): Father is . Mother Family Medical History: No Reported History Additional Family Medical History / Comment(s): Mother is healthy Medications and Allergies Home Medications Medication Instructions Recorded Confirmed Type lisinopriL [Zestril] 10 mg PO DAILY #30 tab 01/29/22 03/11/22 Rx Levothyroxine Sodium [Synthroid] 112 mcg PO DAILY 03/11/22 03/11/22 History Metoprolol Tartrate [Lopressor] 25 mg PO BID 03/11/22 03/11/22 History amLODIPine [Norvasc] 10 mg PO DAILY 03/11/22 03/11/22 History Allergies Allergy/AdvReac Type Severity Reaction Status Date / Time No Known Allergies Allergy Verified 03/11/22 10:04 Physical Examination - Vital Signs Vital Signs: Vital Signs Temp Pulse Resp BP Pulse Ox 03/11/22 11:54 89 20 135/87 94 L 03/11/22 09:49 97.6 F 93 18 139/103 95 Intake and Output 03/10/22 03/11/22 03/11/22 22:59 06:59 14:59 Other: Weight 98.883 kg GENERAL: The patient is lying in bed and is not in acute distress. CHEST: The heart rate is regular rate rhythm. No murmurs to auscultation. LUNG: Clear to auscultation bilaterally no wheezing noted throughout. Not labored breathing. ABDOMEN/GI: Bowel sounds present in all 4 quadrants. No tenderness to palpation throughout. NEUROLOGICAL: Higher mental function: The patient is drwosy but is awakeable to voice. Is oriented to self, time. He stated he was in the hospital. Patient is following simple commands. No aphasia and no neglect. Cranial nerves: The pupils are round, equal and reactive to light. Visual segal are full to confrontation throughout. Extraocular movement is nystagmus looking in all directions and seems horizontal. Facial sensation is normal to touch throughout. The facial strength is normal throughout. Hearing is mildly decreased bilaterally to hand rub. Tongue is midline and moved [id number] without any difficulty. Has moderate to severe dysarthria is noted. Has hypophonia. Shoulder shrug is normal bilaterally. Motor: The strength is 5 over 5 throughout while lowers are limited but has antigravity and no focal weakness. Normal tone and bulk. Cerebellum: Normal finger to nose bilaterally. Sensation: Sensation is decreased to touch over the right side. Reflexes (right/left): 1+ throughout. Plantars is upgoing over the right. Mute over the left. Results - Laboratory Findings CBC and BMP: 03/11/22 10:03 03/11/22 10:03 Abnormal Lab Findings: Abnormal Labs 03/11/22 03/11/22 03/11/22 10:03 10:03 10:03 WBC 11.7 H Neutrophils # 9.4 H APTT 20.7 L BUN 22 H Glucose 113 H Total Bilirubin 2.2 H Assessment and Plan Assessment: Acute to subacute speech difficulty, diplopia, right arm weakness likely due to stroke (on examination has nystagmus in all directions, dysarthria and right sided numbness). History of stroke 2 (has right lacunar basal ganglia) due to small vessel disease Hypertension Plan: I ordered MRI of the brain, MRA of the head and neck stat In the ED the patient was given aspirin 325 mg once then was started on aspirin 325 daily. I'll not start the patient on dual antiplatelet until I receive the MRI of the brain result back. I started the patient on Lipitor 80 mg once then 80 mg daily at bedtime for secondary stroke prophylaxis Every 4 hours neuro checks next on on cardiac Buenrostro Ordered 2-D echo, hemoglobin A1c, TSH. Lipid panel is ordered pending PT, OT and NEEDLE POLISHER are consulted We'll defer the rest of the medical management to the primary team For DVT prophylaxis: Started on subcu heparin 5000 units every 8 hours. Thank you for the consultation. Rudi Radford M.D. Neuro-Hospitalist Time with Patient: Greater than 30
--- NOTE | 2022-03-11 14:11 | US ---
EXAMINATION TYPE: US carotid duplex BILAT DATE OF EXAM: 03/11/2022 COMPARISON: NONE CLINICAL HISTORY: 62-year-old male Stenosis. Slurred speech TECHNIQUE: Carotid duplex ultrasound examination. Indirect Doppler criteria was utilized. FINDINGS: EXAM MEASUREMENTS: RIGHT: Peak Systolic Velocity (PSV) cm/sec ----- Right CCA: 75.7 ----- Right ICA: 80.1 ----- Right ECA: 66.9 ICA/CCA ratio: 1.1 RIGHT: End Diastole cm/sec ----- Right CCA: 14.2 ----- Right ICA: 16.4 ----- Right ECA: 7.6 LEFT: Peak Systolic Velocity (PSV) cm/sec ----- Left CCA: 80.2 ----- Left ICA: 76.9 ----- Left ECA: 93.1 ICA/CCA ratio: 1.0 LEFT: End Diastole cm/sec ----- Left CCA: 18.6 ----- Left ICA: 17.5 ----- Left ECA: 11.5 VERTEBRALS (direction of flow): Right Vertebral: unable to visualize Left Vertebral: Antegrade KENNEL KEEPER NOTES: Technical limitations due to patient's breathing and unable to stay awake. Mild pl aque bilateral bifurcations. No evidence of increased velocities. Lymph node right neck = 2.2 x 2.2 x 0.7 cm. IMPRESSION: 1. No hemodynamically significant internal carotid artery stenosis on either side. 2. Unable to visualize the right vertebral artery for adequate assessment. 3. There appears to be an enlarged lymph node along the right side of the neck measuring up to 2.2 cm short axis. Correlate with physical exam findings. Either ultrasound follow-up or further contrast e nhanced CT neck evaluation recommended. Criteria for Assigning % of Stenosis / Diameter reduction (Estimation based on the indirect measurements of the internal carotid artery velocities (ICA PSV). 1. Normal (no stenosis)=ICA PSV < 125 cm/s: ratio < 2.0: ICA EDV<40 cm/s. 2. Less than 50% stenosis=ICA PSV < 125 cm/s: ratio < 2.0: ICA EDV<40 cm/s. 3. 50 to 69% stenosis=ICA PSV of 125 to 230 cm/s: ration 2.0 ? 4.0: ICA EDV 40-100 cm/s. 4. Greater than 70% stenosis to near occlusion= ICA PSV > 230 cm/s: ratio > 4.0: ICA EDV > 100 cm/s. 5. Near occlusion= ICA PSV velocities may be low or undetectable: variable ratio and ICA EDV. 6. Total occlusion=unable to detect flow.
[2022-03-11] MEDS ORDERED: LORazepam 1 MG TAB PO STA (15:38)
[2022-03-11] MEDS: SODIUM CHLORIDE 0.9% 1,000 ML IV SCH (15:54)
[2022-03-11 16:19] LABS: T4, Free (Free Thyroxine) 0.98 ng/dL (0.78-2.19)
--- NOTE | 2022-03-11 17:15 | MR ---
EXAMINATION TYPE: MR brain wo con DATE OF EXAM: 03/11/2022 COMPARISON: None HISTORY: stroke. nystagmus in all direction, dysarthria Multiplanar multiecho imaging of the brain with no contrast. There is mild cerebral cortical atrophy. There is no mass effect or midline shift. No sign of intracr anial hemorrhage. There is a 6 mm focus of increased signal in the left occipital lobe white matter n ear the occipital horn of the left lateral ventricle that could be an acute lacunar infarct on the di ffusion images. Corpus callosum is intact. Brainstem is intact. There are small 5 mm rounded old lacunar infarcts in the anterior right thalamus. On the T2 and FLAIR images there is coalescent increased signal around the occipital horns of the lat eral ventricles there is also 5 mm foci of increased signal in the white matter right cerebellar migdalia sphere. There is some mild linear increased signal around the frontal horns of the lateral ventricles . Sella turcica is normal. No evidence of orbital mass. No evidence of posterior fossa mass. IMPRESSION: White matter signal changes likely related to microvascular ischemia. Demyelinating disease is not ex cluded. There is acute or subacute lacunar infarct evidenced in the deep left occipital lobe white ma tter.
[2022-03-11] MEDS: HEPARIN SODIUM,PORCINE/PF 5,000 UNIT/0.5 ML SYRINGE SQ SCH ×2 (18:11→23:14)
[2022-03-11] MEDS: CLOPIDOGREL 75 MG TAB PO SCH (18:14)
--- NOTE | 2022-03-11 19:12 | MR ---
EXAMINATION TYPE: MR angio head wo/neck wo/w con DATE OF EXAM: 03/11/2022 COMPARISON: None HISTORY: stroke. nystagmus in all direction, dysarthria CONTRAST: Standard multiplanar, multisequence MRI departmental protocol images were obtained without contrast a nd with 10 mL intravenous Gadavist gadolinium contrast. There are Three-D postprocessed images. There is normal branching pattern of the great vessels on the aortic arch. There is bilateral arteria l flow in the vertebral arteries. There is arterial flow in the common internal and external carotid arteries bilaterally. Exam limited by motion. There appears to be within 50% stenosis of the origin o f the right external carotid artery. There is approximately 50% fusiform stenosis of the proximal rig ht internal carotid artery. There is arterial flow in the distal vertebral arteries. No significant f low demonstrated in the basilar artery. There is bilateral arterial flow in the middle and anterior c erebral arteries. Flow in the posterior cerebral arteries is not well evaluated. There is is no intracranial mass effect.There no evidence of neovascularity or aneurysm. IMPRESSION: There is a poor quality exam. There appears to be at least 50% stenosis of the proximal right interna l and external carotid arteries. We could not demonstrate the flow in the posterior cerebral arteries . No flow demonstrated in the basilar artery. It is not clear if this is a real finding or related to the poor quality exam. CT angiogram of the head and neck is recommended for further evaluation if cl inically indicated since this exam has significant motion artifact.
[2022-03-12] MEDS: LEVOTHYROXINE 112 MCG TAB PO SCH (07:03)
[2022-03-12] MEDS: SODIUM CHLORIDE 0.9% 1,000 ML IV SCH ×2 (07:04→20:52)
[2022-03-12] MEDS ORDERED: METOPROLOL TARTRATE 25 MG TAB PO SCH (09:00)
--- NOTE | 2022-03-12 11:27 | P.CRDCN ---
History of Present Illness History of present illness: HISTORY OF PRESENTING ILLNESS This is a pleasant 62-year-old male past medical history significant for hypertension, hypothyroidism, CVA. 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 Bella in 2017. We have been asked to see in consultation for SVT. Patient presents emergency department from senior living with complaints of right-sided weakness and speech difficulty. Patient was found to have CVA. Patient seen and examined at bedside, no acute distress. Continues to have right sided weakness and speech difficulties. MRI of the brain revealed acute or subacute lacunar infarct evidence of a deep left occipital lobe. This morning, patient was found to be tachycardic on telemetry. RN unable to obtain EKG secondary to the episode being brief. 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 He spontaneously converted to sinus rhythm. Patient denies any history of CAD, VT, heart failure, cardiac arrhythmia. DIAGNOSTICS * EKG reveals sinus tachycardia, heart rate 110, nonspecific STT wave abnormalities, left axis deviation. * Echocardiogram 01/24/2022 revealed EF 6065 percent, poor imaging * Chest xray no acute cardiopulmonary process * Carotid Doppler with no hemodynamically significant internal carotid artery stenosis. * Laboratory reviewed, WBC 11.7, hemoglobin 16.4, platelets 309, sodium 141, potassium 4.6, BUN 22, serum creatinine 1.0, troponin negative, hgb A1C 6.0 * Current home cardiac medications include metoprolol titrate 25 mg twice a day, lisinopril 10 mg daily, amlodipine 10 mg daily. REVIEW OF SYSTEMS At the time of my exam: CONSTITUTIONAL: Denies fever or chills. CARDIOVASCULAR: Denies chest pain, shortness of breath, orthopnea, PND or palpit ations. RESPIRATORY: Denies cough. GASTROINTESTINAL: Denies abdominal pain, diarrhea, constipation, nausea or vomiting. MUSCULOSKELETAL: Denies myalgias. NEUROLOGIC: Denies numbness, tingling, headacbe or weakness. ENDOCRINE: Denies fatigue, weight change, polydipsia or polyurina. GENITOURINARY: Denies burning, hematuria or urgency with micturation. HEMATOLOGIC: Denies history of anemia or bleeding. PHYSICAL EXAMINATION Blood pressure 145/95, heart rate 118, afebrile, oxygen saturations 93% on room air CONSTITUTIONAL: No apparent distress. HEENT: Head is normocephalic. Pupils are equal, round. Sclerae anicteric. Mucous membranes of the mouth are moist. No JVD. No carotid bruit. CHEST EXAMINATION: Lungs are clear to auscultation. No chest wall tenderness is noted on palpation or with deep breathing. HEART EXAMINATION: Regular rate and rhythm. S1, S2 heard. No murmurs, gallops or rub. ABDOMEN: Soft, nontender. Positive bowel sounds. EXTREMITIES: 2+ peripheral pulses, no lower extremity edema and no calf tenderness. NEUROLOGIC EXAMINATION: Patient is awake, alert, slurred speech noted. ASSESSMENT SVT CVA History of CVAs Hypertension Hypothyroidism PLAN Telemetry reviewed, patient appeared to be in AVNRT, cannot rule out atrial flutter, no EKG performed Continue beta apryl Monitor on telemetry Recommend 30 day event monitor on discharge Consider loop recorder as an outpatient Neurology following Further recommendations based on clinical course Nurse practitioner note has been reviewed by physician. Signing provider agrees with the documented findings, assessment, and plan of care. Past Medical History Past Medical History: Hypertension, Sleep Apnea/CPAP/BIPAP, Thyroid Disorder Additional Past Medical History / Comment(s): TIA, pt has been on medications for blood pressure and thyroid but lost insurance and cannot afford to get meds. History of Any Multi-Drug Resistant Organisms: None Reported Past Surgical History: Appendectomy, Ear Surgery Additional Past Surgical History / Comment(s): Bilateral myringotomies/tubes Past Anesthesia/Blood Transfusion Reactions: No Reported Reaction Additional Past Anesthesia/Blood Transfusion Reaction / Comment(s): never re cieved blood Smoking Status: Current every day smoker - Past Family History Father Family Medical History: No Reported History Additional Family Medical History / Comment(s): Father is . Mother Family Medical History: No Reported History Additional Family Medical History / Comment(s): Mother is healthy Medications and Allergies Home Medications Medication Instructions Recorded Confirmed Type lisinopriL [Zestril] 10 mg PO DAILY #30 tab 01/29/22 03/11/22 Rx Levothyroxine Sodium [Synthroid] 112 mcg PO DAILY 03/11/22 03/11/22 History Metoprolol Tartrate [Lopressor] 25 mg PO BID 03/11/22 03/11/22 History amLODIPine [Norvasc] 10 mg PO DAILY 03/11/22 03/11/22 History Allergies Allergy/AdvReac Type Severity Reaction Status Date / Time No Known Allergies Allergy Verified 03/11/22 10:04 Physical Exam Vitals: Vital Signs Temp Pulse Pulse Resp BP BP Pulse Ox 03/12/22 08:06 118 H 19 03/12/22 08:05 97.2 F L 118 H 19 145/95 90 L 03/12/22 04:00 100 20 136/84 93 L 03/12/22 02:00 90 20 03/12/22 00:00 90 20 145/74 94 L 03/11/22 20:00 98.0 F 100 19 117/78 93 L 03/11/22 15:55 97.7 F 86 18 112/89 98 03/11/22 14:25 97.7 F 91 20 142/94 98 03/11/22 11:54 89 20 135/87 94 L 03/11/22 09:49 97.6 F 93 18 139/103 95 Intake and Output 03/11/22 03/12/22 03/12/22 22:59 06:59 14:59 Intake Total 1240 10 Balance 1240 10 Intake: IV 10 Invasive Line 1 10 Intake, IV Titration 1000 Amount Sodium Chloride 0.9% 1, 1000 000 ml @ 100 mls/hr IV . Q10H [facility] Rx#:[id number] Oral 240 Other: # Voids 1 3 Weight 97 kg Results 03/11/22 10:03 03/11/22 10:03 Cardiac Enzymes 03/11/22 03/11/22 Range/Units 10:03 10:03 AST 31 (17-59) U/L Troponin I <0.012 (0.000-0.034) ng/mL Coagulation 03/11/22 Range/Units 10:03 PT 10.6 (9.0-12.0) sec APTT 20.7 L (22.0-30.0) sec CBC 03/11/22 Range/Units 10:03 WBC 11.7 H (3.8-10.6) k/uL RBC 5.55 (4.30-5.90) m/uL Hgb 16.4 (13.0-17.5) gm/dL Hct 50.0 (39.0-53.0) % Plt Count 309 (150-450) k/uL Comprehensive Metabolic Panel 03/11/22 Range/Units 10:03 Sodium 141 (137-145) mmol/L Potassium 4.6 (3.5-5.1) mmol/L Chloride 104 (98-107) mmol/L Carbon Dioxide 23 (22-30) mmol/L BUN 22 H (9-20) mg/dL Creatinine 1.01 (0.66-1.25) mg/dL Glucose 113 H (74-99) mg/dL Calcium 9.3 (8.4-10.2) mg/dL AST 31 (17-59) U/L ALT 24 (4-49) U/L Alkaline Phosphatase 109 (38-126) U/L Total Protein 7.5 (6.3-8.2) g/dL Albumin 4.7 (3.5-5.0) g/dL Current Medications Generic Name Dose Route Start Last Admin Trade Name Freq PRN Reason Stop Dose Admin Amlodipine Besylate 10 mg 03/12/22 09:00 Amlodipine 10 Mg Tab PO DAILY [facility] Aspirin 325 mg 03/12/22 09:00 Aspirin 325 Mg Tab PO DAILY [facility] Atorvastatin Calcium 80 mg 03/12/22 21:00 Atorvastatin 80 Mg Tab PO HS [facility] Clopidogrel Bisulfate 75 mg 03/11/22 17:15 03/11/22 18:14 Clopidogrel 75 Mg Tab PO 75 mg DAILY [facility] Administration Heparin Sodium (Porcine) 5,000 unit 03/11/22 16:00 03/11/22 23:14 Heparin Sodium,Porcine/Pf 5,000 Unit/0.5 Ml Syringe SQ 5,000 unit Q8HR [facility] Administration Sodium Chloride 1,000 mls @ 100 mls/hr 03/11/22 11:00 03/12/22 07:04 Saline 0.9% IV Not Given .Q10H [facility] Levothyroxine Sodium 112 mcg 03/12/22 06:30 03/12/22 07:03 Levothyroxine 112 Mcg Tab PO Not Given DAILY@0630 [facility] Lisinopril 10 mg 03/12/22 09:00 Lisinopril 10 Mg Tab PO DAILY [facility] Metoprolol Tartrate 25 mg 03/12/22 09:00 Metoprolol Tartrate 25 Mg Tab PO BID [facility] Intake and Output 03/11/22 03/12/22 03/12/22 22:59 06:59 14:59 Intake Total 1240 10 Balance 1240 10 Intake: IV 10 Invasive Line 1 10 Intake, IV Titration 1000 Amount Sodium Chloride 0.9% 1, 1000 000 ml @ 100 mls/hr IV . Q10H [facility] Rx#:[id number] Oral 240 Other: # Voids 1 3 Weight 97 kg 03/11/22 10:03 03/11/22 10:03
[2022-03-12] MEDS ORDERED: FUROSEMIDE 10 MG/ML 4 ML VIAL ONE (11:32)
[2022-03-12] MEDS ORDERED: FUROSEMIDE 10 MG/ML 4 ML VIAL IV STA (11:48)
--- NOTE | 2022-03-12 12:17 | P.PN ---
Subjective Progress Note Date: 03/12/22 The patient is seen at bedside and upon seeing him the office at bedside stated he has been having difficulty breathing for 10-15 minutes prior to my arrival. Objective - Vital Signs Vital signs: Vital Signs Temp 97.2 F L 03/12/22 08:05 Pulse 118 H 03/12/22 08:06 Resp 19 03/12/22 08:06 BP 145/95 03/12/22 08:05 Pulse Ox 90 L 03/12/22 08:05 FiO2 40 03/12/22 11:55 Intake & Output 03/11/22 03/12/22 03/12/22 18:59 06:59 18:59 Intake Total 1240 10 Balance 1240 10 Weight 97 kg Intake: IV 10 Invasive Line 1 10 Intake, IV Titration 1000 Amount Sodium Chloride 0.9% 1, 1000 000 ml @ 100 mls/hr IV . Q10H [facility] Rx#:[id number] Oral 240 0 Other: # Voids 3 - Exam GENERAL: The patient is lying in bed and is not in acute distress. RESPIRATORY: Tachypneic and sound congested. NEUROLOGICAL: Higher mental function: The patient is severely drowsy but is awakeable to voice. Is oriented to self. Patient is following simple commands. Cranial nerves: The pupils are round, equal and reactive to light. Extraocular movement is nystagmus looking in all directions mostly right and left and seems horizontal nystagmus. Facial sensation is normal to touch throughout. The facial strength is normal throughout. H Has moderate to severe dysarthria is noted. Has hypophonia. Shoulder shrug is normal bilaterally. Motor: The strength is lifting all extremities above gravity. Some of the workup during this hospital visit consisted of: TSH is 7.610 and the free T4 0.98 Hemoglobin is 6.0. Urine drug screen was not detected in the serum alcohol was less than 10 CT of the head is reported as posterior right parietal scalp contusion. There may be a similar anterior left scalp contusion. No underlying [place] burial fracture. Now chronic lacunar infarct in the right basal ganglia. No acute intracranial abnormality seen. I personally reviewed the CT of the head and I agree with report. MRI the brain is reported as white matter signal changes likely related to microvascular ischemia. The mind disease is not excluded. There is acute or subacute lacunar infarct evident in the deep left occipital lobe white matter. Epileptiform reviewed that MRI and I feel the patient has bilateral and medial pontine acute to subacute ischemic stroke as well as a small lacunar left occipital stroke. I personally reviewed the MRI images with Dr. Andrade (reading Radiologist) and he will notify Dr. Hilario to addenum the report. MRA of the head and neck was reported as there is poor quality exam. There appears to be at least 50% stenosis proximal right ICA and external carotid artery. We could not demonstrate the flow in the posterior cerebral arteries. No flow demonstrated in the basilar artery. It is not clear if this is a real finding or related to the poor quality exam. CT angiography of the head and neck is recommended for further evaluation if clinically indicated since the exam is significant motion artifact. Carotid duplex is reported as no hemodynamically significant internal carotid artery stenosis on either side. Unable to visualize the right vertebral artery for adequate assessment. There appears to be enlarged lymph node along the right side of the neck measuring up to 2.2 cm short axis. Correlate with ph ysical exam finding. Either ultrasound follow-up or further contrast enhanced CT neck evaluation recommended. - Labs CBC & Chem 7: 03/11/22 10:03 03/11/22 10:03 Labs: Abnormal Lab Results - Last 24 Hours (Table) 03/11/22 Range/Units 10:03 TSH 7.610 H (0.465-4.680) mIU/L Assessment and Plan Assessment: Acute to subacute ischemic stroke (I felt over bilateral medial toni and small left occipital region). Presented with speech difficulty, diplopia, right arm weakness l (on examination has nystagmus mostly horizontal directions, dysarthria and right sided numbness). Has acute respiratory issues due to brainstem stroke. History of stroke 2 (has right lacunar basal ganglia) due to small vessel disease Hypertension History of obstructive sleep apnea Plan: I will pursue with CTA head and neck (since there MRA is limited and there is motion artifact on MRA). Because of patient pulmonary symptoms recommend ICU team to be consulted and the patient to be transferred to ICU for closer neurological observation especially with a brainstem stroke. I personally notified the pulmonary N.P. about this patient. Continue aspirin 325mg and Plavix 75mg daily (both new during this hospital visit). Continue Lipitor 80mg qhs for secondary stroke prophylaxis. Q2 hour neuro checks. Pending Lipid panel and ordered limited 2D echo. Every 2 hours neuro checks Continue cardiac monitoring. PT, OT and COMPUTER AIDED DRAFTER are consulted Cardiology is consulted for SVT. Regarding abnormal thyroid level will defer management to Primary team. We'll defer the rest of the medical management to the primary team For DVT prophylaxis: Continue subcu heparin 5000 units every 8 hours. Condition is very guarded. The plan is discussed with ICU team. Rudi Radford M.D. Neuro-Hospitalist Time with Patient: Less than 30
[2022-03-12 12:29] LABS: Glucose,Whole Blood 126 mg/dL (70-110)
[2022-03-12] MEDS ORDERED: ACETAMINOPHEN IV (For NPO) 1,000 MG in EMPTY BAG 1 BAG IVPB PRN (13:11)
--- NOTE | 2022-03-12 13:26 | P.CNPUL ---
History of Present Illness Consult date: 03/12/22 Requesting physician: Eder Fontaine Reason for consult: other (Acute CVA, impending respiratory failure) Chief complaint: Possible stroke History of present illness: This is a 62-year-old white male, brought in yesterday from [facility], has been complaining for the last 6 days of multiple neurological symptoms including double vision, right arm weakness, speech difficulty, and the patient had 2 previous strokes in the past. The patient himself is a very poor historian, and the information was obtained from the chart itself. CT of the brain showed posterior right parietal scalp contusion, small anterior left scalp contusion , And it showed chronic lacunar infarct right basal ganglia, no acute intracranial process was appreciated. Brain MRI showed white matter signal changes likely related to microvascular ischemia, possible demyelinating process. MRI showed acute or subacute lacunar infarct evidenced in the deep left occipital lobe white matter. MRI/MRA showed 50% stenosis of the proximal right internal parotid and external carotid arteries. Could not demonstrate flow in the director long term care ior cerebral arteries, and no flow demonstrated in the basilar artery. Hence CT angiogram of the head and neck was recommended for further evaluation. Patient was seen by neurology on consultation and apparently he was having some difficulty breathing, the neurologist felt that the patient is having respiratory issues related to brain stem stroke. And he does have history of obstructive sleep apnea syndrome. I saw the patient, patient was admitted obtunded but arousable and followed simple instructions, but he was also gurgling with secretions. Hence I placed the patient on BiPAP with IPAP of 12 EPAP of 6, FiO2 60%, and arrange for the patient to be transferred to the ICU. If his pulmonary status deteriorates, the patient would be intubated in the ICU. In the meantime, I fully catheter was placed, patient was given a dose of Lasix. Patient was placed on Plavix at the neurology on the case. And he was also placed on aspirin. Chest x-ray showed no evidence of active disease. CBC is relatively unremarkable. PT and PTT are normal electrolytes are normal renal profile is normal, T4 is normal TSH is a bit elevated, drug screen is negative alcohol level is less than 10 Review of Systems ROS unobtainable: due to mental status Past Medical History Past Medical History: Hypertension, Sleep Apnea/CPAP/BIPAP, Thyroid Disorder Additional Past Medical History / Comment(s): TIA, pt has been on medications for blood pressure and thyroid but lost insurance and cannot afford to get meds. History of Any Multi-Drug Resistant Organisms: None Reported Past Surgical History: Appendectomy, Ear Surgery Additional Past Surgical History / Comment(s): Bilateral myringotomies/tubes Past Anesthesia/Blood Transfusion Reactions: No Reported Reaction Additional Past Anesthesia/Blood Transfusion Reaction / Comment(s): never recieved blood Smoking Status: Current every day smoker - Past Family History Father Family Medical History: No Reported History Additional Family Medical History / Comment(s): Father is . Mother Family Medical History: No Reported History Additional Family Medical History / Comment(s): Mother is healthy Medications and Allergies Home Medications Medication Instructions Recorded Confirmed Type RX: lisinopriL [Zestril] 10 mg PO DAILY #30 tab 01/29/22 03/11/22 Rx Levothyroxine Sodium [Synthroid] 112 mcg PO DAILY 03/11/22 03/11/22 History Metoprolol Tartrate [Lopressor] 25 mg PO BID 03/11/22 03/11/22 History amLODIPine [Norvasc] 10 mg PO DAILY 03/11/22 03/11/22 History Allergies Allergy/AdvReac Type Severity Reaction Status Date / Time No Known Allergies Allergy Verified 03/11/22 10:04 Physical Exam Vitals: Vital Signs Temp Pulse Pulse Resp BP BP Pulse Ox 03/12/22 13:00 120 H 37 H 129/99 94 L 03/12/22 12:30 101.7 F H 120 H 36 H 138/102 89 L 03/12/22 12:23 99.9 F H 123 H 139/95 88 L 03/12/22 11:55 03/12/22 11:54 03/12/22 08:06 118 H 19 03/12/22 08:05 97.2 F L 118 H 19 145/95 90 L 03/12/22 04:00 100 20 136/84 93 L 03/12/22 02:00 90 20 03/12/22 00:00 90 20 145/74 94 L 03/11/22 20:00 98.0 F 100 19 117/78 93 L 03/11/22 15:55 97.7 F 86 18 112/89 98 03/11/22 14:25 97.7 F 91 20 142/94 98 FiO2 03/12/22 13:00 03/12/22 12:30 60 03/12/22 12:23 40 03/12/22 11:55 40 03/12/22 11:54 40 03/12/22 08:06 03/12/22 08:05 03/12/22 04:00 03/12/22 02:00 03/12/22 00:00 03/11/22 20:00 03/11/22 15:55 03/11/22 14:25 Intake and Output 03/11/22 03/12/22 03/12/22 22:59 06:59 14:59 Intake Total 1240 10 Output Total 290 Balance 1240 -280 Intake: IV 10 Invasive Line 1 10 Intake, IV Titration 1000 Amount Sodium Chloride 0.9% 1, 1000 000 ml @ 100 mls/hr IV . Q10H [facility] Rx#:[id number] Oral 240 0 Output: Urine 290 Other: # Voids 1 3 Weight 97 kg Physical Exam: Revealed 62-year-old white male on BiPAP with IPAP of 12 and EPAP of 6 and FiO2 60%. Patient is obtunded but arousable. Head: Atraumatic, normocephalic. HEENT:[Neck is supple.] [No neck masses.] [No thyromegaly.] [No JVD.] Chest: Scattered rhonchi bilaterally, patient has secretions in his upper airways requiring suctioning earlier.] Cardiac Exam: [Normal S1 and S2, no S3 gallop, no murmur.] Abdomen: [Soft, nontender, no megaly, no rebound, no guarding, normal bowel sounds.] Extremities: [No clubbing, no edema, no cyanosis.] Neurological Exam: Patient is drowsy/arousable awaken to voice. Oriented to self and time also to place he knows he is in the hospital. Follows simple instructions, no difficulty with his speech. Pupils are equally reactive. No evidence of facial asymmetry. Strength is noted to be 5 over 5 throughout. Skin: No rashes. Psychiatric: Could not assess. Results - Laboratory Findings CBC and BMP: 03/11/22 10:03 03/11/22 10:03 PT/INR, D-dimer PT 10.6 sec (9.0-12.0) 03/11/22 10:03 INR 1.0 (<1.2) 03/11/22 10:03 Abnormal lab findings: Abnormal Labs 03/11/22 03/11/22 03/11/22 10:03 10:03 10:03 WBC 11.7 H Neutrophils # 9.4 H APTT 20.7 L BUN 22 H Glucose 113 H POC Glucose (mg/dL) Total Bilirubin 2.2 H TSH 03/11/22 03/12/22 10:03 12:27 WBC Neutrophils # APTT BUN Glucose POC Glucose (mg/dL) 126 H Total Bilirubin TSH 7.610 H - Diagnostic Findings Chest x-ray: image reviewed (Chest x-ray showed no evidence of active disease) Additional studies: Other studies including CT of the brain, MRI of the brain, MRI/MRA of the brain as noted in HPI. Assessment and Plan Assessment: Impression: Acute CVA Benign essential hypertension History of supraventricular tachycardia History of hypothyroidism History of previous CVA Recommendation Transferred patient to ICU Placed patient on BiPAP with IPAP of 12 EPAP of 6 and FiO2 to be titrated accordingly maintaining O2 sats above 90% Consider ABG if the patient's clinical status worsens Neuro checks hourly Agree with aspirin and Plavix. GI and DVT prophylaxis. Physical therapy and occupational therapy to evaluate. Other diagnostic studies are pending as ordered by neurology on the case. Resume previous cardiac meds. We'll continue to follow while in ICU. Prognosis at this point is guarded. Time with Patient: Greater than 30
[2022-03-12] MEDS: HEPARIN SODIUM,PORCINE/PF 5,000 UNIT/0.5 ML SYRINGE SQ SCH ×2 (13:53→17:31)
[2022-03-12] MEDS: METOPROLOL TARTRATE 5 MG/5 ML VIAL IVP SCH ×2 (14:17→17:31)
[2022-03-12] MEDS: amLODIPine 10 MG TAB PO SCH (14:26)
[2022-03-12] MEDS: lisinopriL 10 MG TAB PO SCH (14:26)
[2022-03-12] MEDS: CLOPIDOGREL 75 MG TAB PO SCH (14:26)
[2022-03-12 14:52] LABS: Chol/HDL Ratio 4.35 Ratio
[2022-03-12] MEDS: ASPIRIN 325 MG TAB PO SCH (15:20)
--- NOTE | 2022-03-12 15:51 | XR ---
EXAMINATION TYPE: XR chest 1V portable DATE OF EXAM: 03/12/2022 COMPARISON: 03/11/2022 HISTORY: Shortness of breath TECHNIQUE: Frontal and lateral views of the chest are obtained. FINDINGS: Scattered senescent parenchymal changes noted. No evidence for infiltrate. Linear atelectasis left lung base. Chronic elevation left hemidiaphragm. Heart size is stable. Mediastinal structures are stable and grossly unremarkable. No evidence for hilar prominence. Degenerative changes dorsal spine. IMPRESSION: 1. Linear atelectasis left lung base.
[2022-03-12] MEDS ORDERED: propofoL 100 ML IV ONE (16:52)
[2022-03-12] MEDS: NITROGLYCERIN-D5W PMX 50 MG in DEXTROSE/WATER 1 250ML.BAG IV SCH (17:59)
--- NOTE | 2022-03-12 18:04 | XR ---
EXAMINATION TYPE: XR chest 1V portable DATE OF EXAM: 03/12/2022 COMPARISON: Today HISTORY: Respiratory failure TECHNIQUE: FINDINGS: There is endotracheal tube high and 9 cm from the donna. Heart size is normal. There is so me mild infiltrate in the left lower lobe behind the heart. The right lung is clear. No heart failure . There is nasogastric tube in the stomach. IMPRESSION: Endotracheal tube is high. There is a mild infiltrate left lower lobe which is increased compared to exam 2 hours ago.
[2022-03-12 18:18] LABS: ABG HCO3 24 mmol/L (21-25); ABG Oxygen Saturation 97.9 % (94-97); ABG PCO2 54 mmHg (35-45); ABG PH 7.26 (7.35-7.45); ABG PO2 106 mmHg (83-108); ABG TCO2 26 mmol/L (19-24); Allen Test Performed? Yes
--- NOTE | 2022-03-12 18:23 | XR ---
EXAMINATION TYPE: XR chest 1V DATE OF EXAM: 03/12/2022 COMPARISON: 03/12/2022 HISTORY: Tube placement TECHNIQUE: Single view FINDINGS: The endotracheal tube is 6 cm from the donna. There is some mild infiltrates in the medial lower lobes bilaterally. There is nasogastric tube in the stomach. There are chest leads. IMPRESSION: Bilateral lower lobe mild medial pulmonary infiltrates slightly increased compared to exa ms earlier today. No heart failure.
--- NOTE | 2022-03-12 19:08 | P.PN ---
Subjective Progress Note Date: 03/12/22 Progress Note Date: 03/11/22 Patient seen today still with shortness of breath suffering from hypoxic respiratory failure with end-stage COPD. He did show some underlying pneumonia which she is currently on antibiotics for. He stated that he had a pretty rough weekend with shortness of breath. 03/12/2022 SVT during the night, spontaneously converted to sinus rhythm .cardiology consulted. Neuro workup in progress/radiology studies reviewed as per neurology; CTA pending. Maintained on both aspirin and Plavix, statin. Tachycardic, maintaining O2 sats in the 90s on 4 L nasal cannula. T-max 101.7, blood ,urine cultures and chest x-ray ordered. Objective - Vital Signs Vital signs: Vital Signs Temp 98.7 F 03/12/22 16:00 Pulse 98 03/12/22 18:00 Resp 20 03/12/22 18:00 BP 92/70 03/12/22 18:00 Pulse Ox 93 L 03/12/22 18:00 FiO2 100 03/12/22 17:32 Intake & Output 03/11/22 03/12/22 03/12/22 18:59 06:59 18:59 Intake Total 1240 202.424 Output Total 540 Balance 1240 -337.576 Weight 97 kg Intake: IV 200 ACETAMINOPHEN IV (For NPO 100 ) 1,000 mg In Empty Bag 1 bag @ 400 mls/hr IVPB Q6HR PRN Rx#:[id number] Invasive Line 1 20 Sodium Chloride 0.9% 1, 80 000 ml @ 20 mls/hr IV . Q24H [facility] Rx#:[id number] Intake, IV Titration 1000 2.424 Amount Sodium Chloride 0.9% 1, 1000 000 ml @ 20 mls/hr IV . Q24H [facility] Rx#:[id number] propofoL 1,000 mg In 2.424 Empty Bag 1 bag @ 5 MCG/ KG/MIN 2.91 mls/hr IV . Q24H [facility] Rx#:[id number] Oral 240 0 Output: Urine 540 Other: Voiding Method Indwelling Catheter # Voids 3 ABP, PAP, CO, CI - Last Documented Arterial Blood Pressure 94/65 - Exam - Exam GENERAL: This is a 81-year-old . arousable ,oriented 1, slurred speech, HEENT: Head is atraumatic, normocephalic. Pupils are equal, round, and reactive to light. Sclerae anicteric. Conjunctivae are clear. Positive nystagmus Neck is supple. RESPIRATORY: Decreased respirations bilateral with auditory wheezing and poor air exchange heard throughout , scattered rhonchi with crackles in the bases bilateral. CARDIOVASCULAR: Tachycardia with systolic murmur barely audible. GASTROINTESTINAL: No distention noted. Abdomen soft and round. Normal active bowel sounds auscultated x 4 quadrants. No pain or tenderness noted upon palpation. INTEGUMENTARY: No cyanosis. No jaundice. No rashes noted. No cellulitis noted. EXTREMITIES: 2+ peripheral pulses. No evidence of peripheral edema. No calf tenderness noted. NEUROLOGIC: Limited study, right upper extremity weakness, slurred speech, following simple commands - Labs CBC & Chem 7: 03/11/22 10:03 03/11/22 10:03 Labs: Abnormal Lab Results - Last 24 Hours (Table) 03/12/22 03/12/22 03/12/22 Range/Units 07:50 12:27 18:15 ABG pH 7.26 L (7.35-7.45) ABG pCO2 54 H (35-45) mmHg ABG Total CO2 26 H (19-24) mmol/L ABG O2 Saturation 97.9 H (94-97) % POC Glucose (mg/dL) 126 H (70-110) mg/dL LDL Cholesterol, Calc 134.0 H (0.0-131.0) mg/dL Microbiology - Last 24 Hours (Table) 03/12/22 14:20 Urine Culture - Preliminary Urine,Catheterized Assessment and Plan Assessment: (1) Acute and chronic respiratory failure with hypoxia Current Visit: Yes Status: Acute Code(s): J96.21 - ACUTE AND CHRONIC RESPIRATORY FAILURE WITH HYPOXIA SNOMED Code(s): 41434705 (2) Acute exacerbation of chronic obstructive pulmonary disease (COPD) Current Visit: Yes Status: Acute Code(s): J44.1 - CHRONIC OBSTRUCTIVE PULMONARY DISEASE W (ACUTE) EXACERBATION SNOMED Code(s): 788690405 (3) Pneumonia Current Visit: Yes Status: Acute Code(s): J18.9 - PNEUMONIA, UNSPECIFIED ORGANISM SNOMED Code(s): 100063414 (4) SVT (5) obesity, BMI 30.7 (6) obstructive sleep apnea (7) acute distress acute ischemic stroke, bilateral toni, left occipital as per neurology, in a patient with history of prior CVAs (8) hypertension (9) hypothyroidism Plan: Continue on current medication regime ,monitoring and symptomatic treatment. Maintained on nebulized bronchodilators, IV antibiotics, IV anne marie roids. BiPAP/ Transfer to ICU for closer monitoring secondary to brainstem stroke. Multiple consults-Cardiology, pulmonary and neurology following. Neuro workup in progress. Prognosis guarded given multiple complex medical issues. The impression and plan of care has been dictated as directed. : I performed a history and examination of this patient, discussed the same with the dictator. I agree with the dictator's note ,documented as a scribe. Any additional findings or plans will be noted.
[2022-03-12] MEDS ORDERED: SODIUM CHLORIDE 0.9% 1,000 ML IV ONE ×2 (19:43→22:58)
[2022-03-12] MEDS: NOREPINEPHRINE 4 MG in SODIUM CHLORIDE 0.9% 250 ML IV SCH (20:12)
[2022-03-12] MEDS: CHLORHEXIDINE GLUCONATE 15 ML CUP MUCOUS MEM SCH (21:19)
[2022-03-12] MEDS: ATORVASTATIN 80 MG TAB PO SCH (21:19)
[2022-03-13] MEDS: HEPARIN SODIUM,PORCINE/PF 5,000 UNIT/0.5 ML SYRINGE SQ SCH ×3 (00:19→15:15)
[2022-03-13] MEDS: METOPROLOL TARTRATE 5 MG/5 ML VIAL IVP SCH ×5 (00:19→18:05)
[2022-03-13 06:13] LABS: ABG Base Excess -2.5 mmol/L; ABG HCO3 22 mmol/L (21-25); ABG Oxygen Saturation 95.3 % (94-97); ABG PCO2 33 mmHg (35-45); ABG PH 7.43 (7.35-7.45); ABG PO2 68 mmHg (83-108); ABG TCO2 23 mmol/L (19-24); Allen Test Performed? Yes
--- NOTE | 2022-03-13 06:13 | CT ---
EXAMINATION TYPE: CT angio head neck DATE OF EXAM: 03/13/2022 HISTORY: R/O STROKE FROM MRI READ 03-11-22 COMPARISON: MRA head and neck [address] DLP: 803.9 mGycm. Automated Exposure Control for Dose Reduction was Utilized. TECHNIQUE: CTA scan of the head and neck is performed with IV Contrast, patient injected with 65 mL of Isovue 370, axial images are obtained, coronal and sagittal reformatted images are reviewed. 3D re constructed images are created on an independent workstation and reviewed. FINDINGS: Carotid/Vascular Structures: Normal 3 vessel origin from the aortic arch without significant plaque o r stenosis. Mild to moderate peripheral mixed plaque in right carotid bulb without significant stenos is. Patent external carotid arteries bilaterally without significant stenosis. No additional signific ant focal plaque or stenosis in the common or internal carotid arteries bilaterally. Similar to MRA exam there are patent bilateral vertebral arteries which become nonvisualized distally . The right is most likely hypoplastic, less likely occluded. Left is the dominant vessel and is comp letely occluded at level of the basilar artery origin. Minimal flow identified in the tortuous mid se gment of the basilar artery with some flow distally extending into the left posterior cerebral artery . Hypoplastic or occluded right posterior cerebral artery. Hypoplastic or small caliber posterior com municating arteries bilaterally. Anterior circulation shows visualization of patent anterior communic ating artery. No significant focal stenosis or aneurysm in the anterior circulation. Other: There is partial visualization of orogastric tube. Endotracheal tube is satisfactory in positi on. There is posterior right upper lobe atelectasis and/or consolidation. Dextroconvex scoliotic curvature or positioning with mild to moderate disc space narrowing C5-C6 and C6-C7 levels. IMPRESSION: 1. No significant stenosis in the common or internal carotid arteries bilaterally. 2. 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 NASCET criteria was used in interpretation of this exam?
--- NOTE | 2022-03-13 06:17 | XR ---
EXAMINATION TYPE: XR chest 1V portable DATE OF EXAM: 03/13/2022 CLINICAL HISTORY: Difficulty breathing progress study. TECHNIQUE: Single AP portable semiupright view of the chest is obtained. COMPARISON: Chest x-ray from one day earlier and older studies. FINDINGS: Stable endotracheal and orogastric tubes. Worsening left basilar opacity now silhouetting left hemidiaphragm. Improved aeration right lower lob e. New medial right upper lung airspace opacity. Cardiac silhouette size is stable and within normal limits. Osseous structures are intact. IMPRESSION: Worsening left lower lobe acute infiltrate and/or atelectasis. New right upper lobe acute infiltrate. Improving right basilar acute infiltrate and/or atelectasis.
[2022-03-13 06:21] LABS: Albumin 2.7 g/dL (3.5-5.0); Basophils % (A) 0 %; Calcium 7.4 mg/dL (8.4-10.2); Eosinophils % (A) 0 %; HCT 45.4 % (39.0-53.0); HGB 14.1 gm/dL (13.0-17.5); Lymphocytes # (A) 1.1 k/uL (1.0-4.8); Lymphocytes % (A) 7 %; MCH 28.6 pg (25.0-35.0); Magnesium 1.8 mg/dL (1.6-2.3); Mean Platelet Volume 7.1; Monocytes # (A) 0.9 k/uL (0-1.0); Monocytes % (A) 6 %; Neutrophils # (A) 13.1 k/uL (1.3-7.7); Neutrophils % (A) 86 %; Platelet Count 247 k/uL (150-450); Potassium 3.6 mmol/L (3.5-5.1); RBC 4.93 m/uL (4.30-5.90); RDW 14.2 % (11.5-15.5); Total Bilirubin 1.5 mg/dL (0.2-1.3); Total Protein 4.9 g/dL (6.3-8.2); WBC 15.2 k/uL (3.8-10.6)
[2022-03-13] MEDS: NOREPINEPHRINE 4 MG in SODIUM CHLORIDE 0.9% 250 ML IV SCH (06:23)
[2022-03-13] MEDS: LEVOTHYROXINE 112 MCG TAB PO SCH (07:39)
[2022-03-13] MEDS: CLOPIDOGREL 75 MG TAB PO SCH (07:51)
[2022-03-13] MEDS: SODIUM CHLORIDE 0.9% 1,000 ML IV SCH ×2 (07:51→14:54)
[2022-03-13] MEDS: CHLORHEXIDINE GLUCONATE 15 ML CUP MUCOUS MEM SCH ×2 (07:51→20:00)
[2022-03-13] MEDS: amLODIPine 10 MG TAB PO SCH (07:52)
[2022-03-13] MEDS: lisinopriL 10 MG TAB PO SCH (07:52)
[2022-03-13] MEDS: ASPIRIN 325 MG TAB PO SCH (07:52)
[2022-03-13] MEDS ORDERED: Magnesium Replacement Protocol 1 EACH MISC MISCELLANE PRN (08:14)
[2022-03-13] MEDS ORDERED: Potassium Replacement Protocol 1 EACH MISC MISCELLANE PRN (08:17)
[2022-03-13] MEDS ORDERED: POTASSIUM BICARBONATE/CIT AC 20 MEQ TABLET.EFF NG-TUBE SCH (09:00)
[2022-03-13] MEDS ORDERED: PANTOPRAZOLE 40 MG/10 ML VIAL IV SCH (09:00)
--- NOTE | 2022-03-13 09:13 | P.PN ---
Subjective Progress Note Date: 03/13/22 This is a pleasant 62-year-old male past medical history significant for hypertension, hypothyroidism, CVA. 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 Bella in 2017. We have been asked to see in consultation for SVT. Patient presents emergency department from [facility] with complaints of right-sided weakness and speech difficulty. Patient was found to have CVA. He continues to have right sided weakness and speech difficulties. MRI of the brain revealed acute or subacute lacunar infarct evidence of a deep left occipital lobe. On 03/12/22 patient was found to be tachycardic on telemetry. RN unable to obtain EKG secondary to the episode being brief. 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 He spontaneously converted to sinus rhythm. Patient denies any history of CAD, AK, heart failure, cardiac arrhythmia. The patient was evaluated by neurology and the neurologist felt that the patient's respiratory issues are related to a brain stem stroke. Patient was placed on BiPAP yesterday. Last night patient went into SVT on telemetry for approximately 2 minutes, became diaphoretic and developed respiratory distress, he was given IV Lasix without respiratory improvement patient was intubated and sedated. Patient was started on metoprolol IV. Patient is seen today in the ICU and remains intubated and sedated with no signs of acute respiratory distress. Patient still has right-sided weakness. He also had hypotension was started on levophed. Blood pressure this morning is 92/65. He remains sinus rhythm on telemetry. His chest x-ray this morning shows worsening left lower lobe acute infiltrates and/or atelectasis, new right upper lobe acute infiltrate. An impr oving right basilar acute infiltrate and/or atelectasis. Labs this morning show sodium 140 potassium 3.6P 128 creatinine 1.5 AST 21 ALP 17 cholesterol 200 triglycerides 100 LDL 134 HDL 46. Patient will continue with Norvasc, aspirin, Lipitor, lisinopril, Lopressor. Objective - Vital Signs Vital signs: Vital Signs Temp 97.7 F 03/13/22 05:00 Pulse 79 03/13/22 07:30 Resp 24 03/13/22 07:30 BP 92/65 03/13/22 07:30 Pulse Ox 100 03/13/22 07:30 FiO2 50 03/13/22 07:07 Intake & Output 03/12/22 03/13/22 03/13/22 18:59 06:59 18:59 Intake Total 399.070 2965.938 164.673 Output Total 545 630 45 Balance -272.572 4662.938 119.673 Weight 99.7 kg Intake: IV 220 1320 125 ACETAMINOPHEN IV (For NPO 100 ) 1,000 mg In Empty Bag 1 bag @ 400 mls/hr IVPB Q6HR PRN Rx#:[id number] Invasive Line 1 20 30 Sodium Chloride 0.9% 1, 100 1290 125 000 ml @ 125 mls/hr IV . Q8H [facility] Rx#:[id number] Intake, IV Titration 9.699 2442.938 39.673 Amount Norepinephrine 4 mg In 193.655 Sodium Chloride 0.9% 250 ml @ 0.05 MCG/KG/MIN 18. 479 mls/hr IV .[id number] [facility] Rx#:[id number] Sodium Chloride 0.9% 1, 1000 000 ml @ 999 mls/hr IV . Q1H1M ONE Rx#:[id number] Sodium Chloride 0.9% 1, 1000 000 ml @ 999 mls/hr IV . Q1H1M ONE Rx#:[id number] propofoL 1,000 mg In 9.699 249.283 39.673 Empty Bag 1 bag @ 5 MCG/ KG/MIN 2.91 mls/hr IV . Q24H [facility] Rx#:[id number] Oral 0 Output: Gastric Drainage 425 Urine 545 205 45 Other: Voiding Method Indwelling Catheter Indwelling Catheter ABP, PAP, CO, CI - Last Documented Arterial Blood Pressure 90/53 - Exam PHYSICAL EXAM: VITAL SIGNS: Reviewed. GENERAL: Well-developed in no acute distress. HEENT: Head is normocephalic. Pupils are equal, round. Sclerae anicteric. Mucous membranes of the mouth are moist. NECK: Supple. No JVD or thyromegaly RESPIRATORY: Respirations even and unlabored. Lungs diminished to auscultation bilaterally. He remains intubated and sedated CARDIO: Regular rate and rhythm. S1 and S2 heard. No murmur or gallops. EXTREMITIES: Normal range of motion. No clubbing or cyanosis. Peripheral pulses intact. Negative for bilateral lower extremity edema NEURO: Orientated to person, time, mood is appropriate - Labs CBC & Chem 7: 03/13/22 05:19 03/13/22 05:19 Labs: Abnormal Lab Results - Last 24 Hours (Table) 03/12/22 03/12/22 03/12/22 Range/Units 07:50 12:27 18:15 WBC (3.8-10.6) k/uL Neutrophils # (1.3-7.7) k/uL ABG pH 7.26 L (7.35-7.45) ABG pCO2 54 H (35-45) mmHg ABG pO2 (83-108) mmHg ABG Total CO2 26 H (19-24) mmol/L ABG O2 Saturation 97.9 H (94-97) % Chloride (98-107) mmol/L Carbon Dioxide (22-30) mmol/L BUN (9-20) mg/dL Creatinine (0.66-1.25) mg/dL Glucose (74-99) mg/dL POC Glucose (mg/dL) 126 H (70-110) mg/dL Calcium (8.4-10.2) mg/dL Total Bilirubin (0.2-1.3) mg/dL Total Protein (6.3-8.2) g/dL Albumin (3.5-5.0) g/dL LDL Cholesterol, Calc 134.0 H (0.0-131.0) mg/dL 03/13/22 03/13/22 03/13/22 Range/Units 05:19 05:19 06:09 WBC 15.2 H (3.8-10.6) k/uL Neutrophils # 13.1 H (1.3-7.7) k/uL ABG pH (7.35-7.45) ABG pCO2 33 L (35-45) mmHg ABG pO2 68 L (83-108) mmHg ABG Total CO2 (19-24) mmol/L ABG O2 Saturation (94-97) % Chloride 109 H (98-107) mmol/L Carbon Dioxide 21 L (22-30) mmol/L BUN 28 H (9-20) mg/dL Creatinine 1.53 H (0.66-1.25) mg/dL Glucose 124 H (74-99) mg/dL POC Glucose (mg/dL) (70-110) mg/dL Calcium 7.4 L (8.4-10.2) mg/dL Total Bilirubin 1.5 H (0.2-1.3) mg/dL Total Protein 4.9 L (6.3-8.2) g/dL Albumin 2.7 L (3.5-5.0) g/dL LDL Cholesterol, Calc (0.0-131.0) mg/dL Microbiology - Last 24 Hours (Table) 03/12/22 14:20 Urine Culture - Preliminary Urine,Catheterized Assessment and Plan Assessment: SVT CVA History of CVAs Hypertension Hypothyroidism Plan: Continue with all current cardiac medications Continue to titrate pressors as tolerated Continue with telemetry monitoring Continue beta apryl Monitor on telemetry Neurology following Prognosis guarded Further recommendations based on clinical course The above impression and plan of care have been discussed and directed by the signing physician. Milly Hudson, nurse practitioner, acting as scribe for signing physician.
[2022-03-13] MEDS: MAGNESIUM SULFATE-D5W PMX 1 GM in DEXTROSE/WATER 1 100ML.BAG IVPB SCH ×2 (09:30→10:35)
[2022-03-13] MEDS ORDERED: SODIUM CHLORIDE 0.9% 1,000 ML IV ONE ×2 (10:33→15:30)
--- NOTE | 2022-03-13 11:17 | XR ---
EXAMINATION TYPE: XR chest 1V portable DATE OF EXAM: 03/13/2022 CLINICAL HISTORY: Left subclavian central venous catheter placement. TECHNIQUE: Single AP portable frontal semiupright view of the chest is obtained. COMPARISON: Chest x-ray from earlier today and older studies FINDINGS: There is new left subclavian central venous catheter terminating in SVC. No pneumothorax i s evident. Stable endotracheal and orogastric tubes. Stable left basilar opacity silhouetting left hemidiaphragm. Stable medial right upper lung airspace opacity. Cardiac silhouette size is stable and within normal limits. Osseous structures are intact. IMPRESSION: No pneumothorax after left-sided central subclavian venous catheter placement. Stable med ial right upper lung acute infiltrate and left basilar acute infiltrate and/or atelectasis with proba ble small left pleural effusion.
--- NOTE | 2022-03-13 11:54 | CA ---
Transthoracic Echo Report Name: Andrews Peña Age: 62 Gender: M : 1960 Exam Date: 03/13/2022 09:32 Exam Location: [facility] Ht (in): 70 Wt (lb): 219 Ordering Physician: Rudi Radford MD Attending/Referring Phys: Electric Motor Tester Nelia Bruno RDCS Procedure CPT: Indications: limited. stroke Cardiac Hx: Technical Quality: Very technically difficult study Contrast 1: Lumason Total Dose (mL): 4 Contrast 2: Total Dose (mL): MEASUREMENTS (Male / Female) Normal Values FINDINGS Left Ventricle limited study. Left ventricular ejection fraction is estimated at 50-55 %. Right Ventricle Right Atrium Left Atrium Mitral Valve Aortic Valve Tricuspid Valve Pulmonic Valve Pericardium No pericardial effusion. Aorta CONCLUSIONS Limited study to assess the ejection fraction Normal left ventricular dimension and systolic function Previewed by: Dr. Epi Lopez MD (Electronically Signed) Final Date: 13 March 2022 11:54
[2022-03-13 12:04] VITALS: BMI 31.5
[2022-03-13 12:59] VITALS: BP 102/72
--- NOTE | 2022-03-13 13:47 | P.PN ---
Subjective Progress Note Date: 03/13/22 Principal diagnosis: acute hypoxic and hypercapnic respiratory failure secondary to CVA This is a 62-year-old white male, brought in yesterday from [facility], has been complaining for the last 6 days of multiple neurological symptoms including double vision, right arm weakness, speech difficulty, and the patient had 2 previous strokes in the past. The patient himself is a very poor historian, and the information was obtained from the chart itself. CT of the brain showed posterior right parietal scalp contusion, small anterior left scalp contusion , And it showed chronic lacunar infarct right basal ganglia, no acute intracranial process was appreciated. Brain MRI showed white matter signal changes likely related to microvascular ischemia, possible demyelinating process. MRI showed acute or subacute lacunar infarct evidenced in the deep left occipital lobe white matter. MRI/MRA showed 50% stenosis of the proximal right internal parotid and external carotid arteries. Could not demonstrate flow in the posterior cerebral arteries, and no flow demonstrated in the basilar artery. Hence CT angiogram of the head and neck was recommended for further evaluation. Patient was seen by neurology on consultation and apparently he was having some difficulty breathing, the neurologist felt that the patient is having respiratory issues related to brain stem stroke. And he does have history of obstructive sleep apnea syndrome. I saw the patient, patient was admitted obtu nded but arousable and followed simple instructions, but he was also gurgling with secretions. Hence I placed the patient on BiPAP with IPAP of 12 EPAP of 6, FiO2 60%, and arrange for the patient to be transferred to the ICU. If his pulmonary status deteriorates, the patient would be intubated in the ICU. In the meantime, I fully catheter was placed, patient was given a dose of Lasix. Patient was placed on Plavix at the neurology on the case. And he was also placed on aspirin. Chest x-ray showed no evidence of active disease. CBC is relatively unremarkable. PT and PTT are normal electrolytes are normal renal profile is normal, T4 is normal TSH is a bit elevated, drug screen is negative alcohol level is less than 10 Patient was reevaluated today on 03/13/22, patient required intubation and mechanical ventilation last night. Patient became more obtunded, diaphoretic, and he was noted to be extremely short of breath. He was on BiPAP, hence I recommended immediate intubation and mechanical ventilation. Patient is now on assist control rate of 24, tidal volume 500, FiO2 is 50% and PEEP of 8. ABG showed a pO2 of 68 pCO2 of 33 pH of 7.43, and this is a 50% FiO2.patient is not requiring any significant amount of sedation, however he is on propofol at 30 mcg/kg/m, is also on norepinephrine at 0.08 mcg/kg per hour. His urine output has been marginal but the patient has been improving with fluid boluses and increasing his main IV fluid to 25 mL/h. His CT angiogram showed total occlusion of the posterior circulation, and this is consistent with brainstem CVA. Patient was seen by neurology, and working on potentially transferring the patient if accepted by a tertiary care center where there is neurosurgery available. At this point in time we'll continue to monitor the patient in the ICU, will start enteral feeding, we'll continue GI and DVT prophylaxis, patient will remain on norepinephrine and the dose will be titrated accordingly. And will continue to monitor urine output and continue to monitor vent settings and adjust accordingly. Objective - Vital Signs Vital signs: Vital Signs Temp 98.2 F 03/13/22 12:00 Pulse 68 03/13/22 13:00 Resp 24 03/13/22 13:00 BP 102/72 03/13/22 11:30 Pulse Ox 98 03/13/22 13:00 FiO2 50 03/13/22 12:00 Intake & Output 03/12/22 03/13/22 03/13/22 18:59 06:59 18:59 Intake Total 862.860 6957.938 2423.542 Output Total 545 630 235 Balance -510.943 4052.938 2188.542 Weight 99.7 kg 99.7 kg Intake: IV 220 1320 1970 ACETAMINOPHEN IV (For NPO 100 ) 1,000 mg In Empty Bag 1 bag @ 400 mls/hr IVPB Q6HR PRN Rx#:[id number] Invasive Line 1 20 30 20 Magnesium Sulfate-D5w Pmx 200 1 gm In Dextrose/Water 1 100ml.bag @ 100 mls/hr IVPB Q1H [facility] Rx#: [id number] Sodium Chloride 0.9% 1, 100 1290 1750 000 ml @ 125 mls/hr IV . Q8H [facility] Rx#:[id number] Intake, IV Titration 9.699 2442.938 93.542 Amount Norepinephrine 4 mg In 193.655 Sodium Chloride 0.9% 250 ml @ 0.05 MCG/KG/MIN 18. 479 mls/hr IV .[id number] [facility]WELL Rx#:[id number] Sodium Chloride 0.9% 1, 1000 000 ml @ 999 mls/hr IV . Q1H1M ONE Rx#:[id number] Sodium Chloride 0.9% 1, 1000 000 ml @ 999 mls/hr IV . Q1H1M ONE Rx#:[id number] propofoL 1,000 mg In 9.699 249.283 93.542 Empty Bag 1 bag @ 5 MCG/ KG/MIN 2.91 mls/hr IV . Q24H [facility] Rx#:[id number] Oral 0 Other 360 Output: Gastric Drainage 425 Urine 545 205 235 Other: Voiding Method Indwelling Catheter Indwelling Catheter Indwelling Catheter ABP, PAP, CO, CI - Last Documented Arterial Blood Pressure 123/65 - Exam Physical Exam: Revealed 62-year-old white male, intubated and mechanically ventilated, not in distress. Head: Atraumatic, normocephalic. HEENT:[Neck is supple.] [No neck masses.] [No thyromegaly.] [No JVD.]pupils are reactive but sluggishly reactive bilaterally. Chest: diminished breath sound bilaterally no crackles or rhonchi or wheezes. Cardiac Exam: [Normal S1 and S2, no S3 gallop, no murmur.] Abdomen: [Soft, nontender, no megaly, no rebound, no guarding, normal bowel sounds.] Extremities: [No clubbing, no edema, no cyanosis.] Neurological Exam: unable to assess, patient is intubated and mechanically ventilated and sedated Skin: No rashes. Psychiatric: Could not assess. - Labs CBC & Chem 7: 03/13/22 05:19 03/13/22 05:19 Labs: Abnormal Lab Results - Last 24 Hours (Table) 03/12/22 03/12/22 03/13/22 Range/Units 07:50 18:15 05:19 WBC 15.2 H (3.8-10.6) k/uL Neutrophils # 13.1 H (1.3-7.7) k/uL ABG pH 7.26 L (7.35-7.45) ABG pCO2 54 H (35-45) mmHg ABG pO2 (83-108) mmHg ABG Total CO2 26 H (19-24) mmol/L ABG O2 Saturation 97.9 H (94-97) % Chloride (98-107) mmol/L Carbon Dioxide (22-30) mmol/L BUN (9-20) mg/dL Creatinine (0.66-1.25) mg/dL Glucose (74-99) mg/dL Calcium (8.4-10.2) mg/dL Total Bilirubin (0.2-1.3) mg/dL Total Protein (6.3-8.2) g/dL Albumin (3.5-5.0) g/dL LDL Cholesterol, Calc 134.0 H (0.0-131.0) mg/dL 03/13/22 03/13/22 Range/Units 05:19 06:09 WBC (3.8-10.6) k/uL Neutrophils # (1.3-7.7) k/uL ABG pH (7.35-7.45) ABG pCO2 33 L (35-45) mmHg ABG pO2 68 L (83-108) mmHg ABG Total CO2 (19-24) mmol/L ABG O2 Saturation (94-97) % Chloride 109 H (98-107) mmol/L Carbon Dioxide 21 L (22-30) mmol/L BUN 28 H (9-20) mg/dL Creatinine 1.53 H (0.66-1.25) mg/dL Glucose 124 H (74-99) mg/dL Calcium 7.4 L (8.4-10.2) mg/dL Total Bilirubin 1.5 H (0.2-1.3) mg/dL Total Protein 4.9 L (6.3-8.2) g/dL Albumin 2.7 L (3.5-5.0) g/dL LDL Cholesterol, Calc (0.0-131.0) mg/dL Microbiology - Last 24 Hours (Table) 03/12/22 14:20 Urine Culture - Final Urine,Catheterized 03/12/22 23:32 Sputum Culture - Preliminary Sputum Assessment and Plan Assessment: Impression:acute hypoxic and hypercapnic respiratory failure secondary to acute brainstem CVA/stroke Acute CVA Benign essential hypertension History of supraventricular tachycardia History of hypothyroidism History of previous CVA Recommendation continue ventilatory support. discussed with the neurologist on the case, he will likely arrange for potentially transferring the patient if accepted by a tertiary care center. Central access was established for hemodynamic support and the patient is requiring norepinephrine. GI and DVT prophylaxis. CT angiogram of the head was reviewed. nutritional support/enteral feeding. We'll continue to follow while in ICU. Prognosis is extremely poor and guarded critical care time is over 30 minutes, not including the time spent on procedu res. Time with Patient: Greater than 30
[2022-03-13] MEDS ORDERED: TICAGRELOR 90 MG TAB PO STA (14:20)
[2022-03-13] MEDS ORDERED: DEXMEDETOMIDINE/0.9% NACL(PMX) 400 MCG in EMPTY BAG 1 BAG IV SCH (14:30)
[2022-03-13] MEDS: NITROGLYCERIN-D5W PMX 50 MG in DEXTROSE/WATER 1 250ML.BAG IV SCH (14:55)
--- NOTE | 2022-03-13 15:12 | P.PN ---
Subjective Progress Note Date: 03/13/22 Yesterday at 5ishpm according the nurse the patient was becoming more tachypneic and as result was intubated and on ventilator. He was on IV Propofol 40mcg/kg/min then weaned down to 30mcg/kg/min. Objective - Vital Signs Vital signs: Vital Signs Temp 98.2 F 03/13/22 12:00 Pulse 78 03/13/22 14:00 Resp 16 03/13/22 14:00 BP 102/72 03/13/22 11:30 Pulse Ox 97 03/13/22 14:00 FiO2 50 03/13/22 14:41 Intake & Output 03/12/22 03/13/22 03/13/22 18:59 06:59 18:59 Intake Total 556.325 9816.938 2793.940 Output Total 545 630 275 Balance -838.177 2108.938 2518.940 Weight 99.7 kg 99.7 kg Intake: IV 220 1320 2095 ACETAMINOPHEN IV (For NPO 100 ) 1,000 mg In Empty Bag 1 bag @ 400 mls/hr IVPB Q6HR PRN Rx#:[id number] Invasive Line 1 20 30 20 Magnesium Sulfate-D5w Pmx 200 1 gm In Dextrose/Water 1 100ml.bag @ 100 mls/hr IVPB Q1H [facility] Rx#: [id number] Sodium Chloride 0.9% 1, 100 1290 1875 000 ml @ 125 mls/hr IV . Q8H [facility] Rx#:[id number] Intake, IV Titration 9.699 2442.938 338.940 Amount Norepinephrine 4 mg In 193.655 245.398 Sodium Chloride 0.9% 250 ml @ 0.05 MCG/KG/MIN 18. 479 mls/hr IV .[id number] [facility] Rx#:[id number] Sodium Chloride 0.9% 1, 1000 000 ml @ 999 mls/hr IV . Q1H1M ONE Rx#:[id number] Sodium Chloride 0.9% 1, 1000 000 ml @ 999 mls/hr IV . Q1H1M ONE Rx#:[id number] propofoL 1,000 mg In 9.699 249.283 93.542 Empty Bag 1 bag @ 5 MCG/ KG/MIN 2.91 mls/hr IV . Q24H [facility] Rx#:[id number] Oral 0 Other 360 Output: Gastric Drainage 425 Urine 545 205 275 Other: Voiding Method Indwelling Catheter Indwelling Catheter Indwelling Catheter ABP, PAP, CO, CI - Last Documented Arterial Blood Pressure 134/72 - Exam GENERAL: The patient is lying in bed and does not appear in acute distress. RESPIRATORY: Intubated on ventilator. NEUROLOGICAL: Limited since on IV Propofol 35mcg/kg/min Exam was severely drowsy but opening his eye. Performed another exam in afternoon/early and sedation was stopped: Patient is drowsy but opening his eye. He is following simple commands (showing thumbs up and sticking his tongue out). Cranial Nerves: pupils are round and reactive to light. EOM is limited because of his cooperation but appears right medial rectus palsy and has nystagmus looking to left. Visual field hard to assess. No facial weakness. Sticking his tongue. Is slightly breathing over the vent. Motor: Strength: Is lifting the left side >>right side. Is lifting the right upper extremity above gravity but has drift and significant weakness over the right lower but has antigravity over the right ankle. Sensation: Hard to assess. Some of the workup during this hospital visit consisted of: Lipid panel: TG 100, Cholestrol 200, LDL 134 and HDL: 46 TSH is 7.610 and the free T4 0.98 Hemoglobin is 6.0. Urine drug screen was not detected in the serum alcohol was less than 10 CT of the head is reported as posterior right parietal scalp contusion. There may be a similar anterior left scalp contusion. No underlying [place] burial fracture. Now chronic lacunar infarct in the right basal ganglia. No acute intracranial abnormality seen. I personally reviewed the CT of the head and I agree with report. MRI the brain is reported as white matter signal changes likely related to microvascular ischemia. The mind disease is not excluded. There is acute or subacute lacunar infarct evident in the deep left occipital lobe white matter. Epileptiform reviewed that MRI and I feel the patient has bilateral and medial pontine acute to subacute ischemic stroke as well as a small lacunar left occipital stroke. I personally reviewed the MRI images with Dr. Andrade (reading Radiologist) and he will notify Dr. Hilario to addenum the report. MRA of the head and neck was reported as there is poor quality exam. There appears to be at least 50% stenosis proximal right ICA and external carotid artery. We could not demonstrate the flow in the posterior cerebral arteries. No flow demonstrated in the basilar artery. It is not clear if this is a real finding or related to the poor quality exam. CT angiography of the head and neck is recommended for further evaluation if clinically indicated since the exam is significant motion artifact. Carotid duplex is reported as no hemodynamically significant internal carotid artery stenosis on either side. Unable to visualize the right vertebral artery for adequate assessment. There appears to be enlarged lymph node along the right side of the neck measuring up to 2.2 cm short axis. Correlate with ph ysical exam finding. Either ultrasound follow-up or further contrast enhanced CT neck evaluation recommended. CTA head and neck: It is reported as significant stenosis in the common or internal carotid artery. 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 Limited 2D echo: Reported as Normal left ventricular dimension and systolic function. - Labs CBC & Chem 7: 03/13/22 05:19 03/13/22 05:19 Labs: Abnormal Lab Results - Last 24 Hours (Table) 03/12/22 03/13/22 03/13/22 Range/Units 18:15 05:19 05:19 WBC 15.2 H (3.8-10.6) k/uL Neutrophils # 13.1 H (1.3-7.7) k/uL ABG pH 7.26 L (7.35-7.45) ABG pCO2 54 H (35-45) mmHg ABG pO2 (83-108) mmHg ABG Total CO2 26 H (19-24) mmol/L ABG O2 Saturation 97.9 H (94-97) % Chloride 109 H (98-107) mmol/L Carbon Dioxide 21 L (22-30) mmol/L BUN 28 H (9-20) mg/dL Creatinine 1.53 H (0.66-1.25) mg/dL Glucose 124 H (74-99) mg/dL Calcium 7.4 L (8.4-10.2) mg/dL Total Bilirubin 1.5 H (0.2-1.3) mg/dL Total Protein 4.9 L (6.3-8.2) g/dL Albumin 2.7 L (3.5-5.0) g/dL 03/13/22 Range/Units 06:09 WBC (3.8-10.6) k/uL Neutrophils # (1.3-7.7) k/uL ABG pH (7.35-7.45) ABG pCO2 33 L (35-45) mmHg ABG pO2 68 L (83-108) mmHg ABG Total CO2 (19-24) mmol/L ABG O2 Saturation (94-97) % Chloride (98-107) mmol/L Carbon Dioxide (22-30) mmol/L BUN (9-20) mg/dL Creatinine (0.66-1.25) mg/dL Glucose (74-99) mg/dL Calcium (8.4-10.2) mg/dL Total Bilirubin (0.2-1.3) mg/dL Total Protein (6.3-8.2) g/dL Albumin (3.5-5.0) g/dL Microbiology - Last 24 Hours (Table) 03/12/22 23:32 Gram Stain - Preliminary Sputum Sputum Culture - Preliminary 03/12/22 14:20 Urine Culture - Final Urine,Catheterized Assessment and Plan Assessment: Acute to subacute ischemic stroke (I felt over bilateral medial toni and small left occipital region on ). Unknown cause. Presented with speech difficulty, diplopia, right arm weakness. Last normal is 6 days prior to presenting hospital. 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 I spoke with Dr. Beckman then later Dr. Akhtar (interventional neurologist) because of the occlusion over the basilar on CTA. Dr. Akhtar recommend to start Brilinta 90mg bid with loading 180mg once. He will attempt to have the patient transferred to [facility] for possible intervention (thrombectomy) if patient condition deteriorates but for now he will attempt to transfer to [facility] ICU but if condition deteriorates then to inform the stroke team immediately for intervention. He recommended to stop Propofol and instead use Precedex if needed. Recommend Systolic blood pressure between 140-220 and recommend using Norepinephrine (per Dr. Akhtar) and for IV normal saline bolus. Continue ASA but changed to 81mg daily and started Brilinta 90mg bid. Continue Lipitor 90mg qhs. Continue neuro checks Continue cardiac monitoring. PT, OT and IMMIGRATION INSPECTOR are consulted Cardiology is consulted for SVT. Regarding possible aspiration pneumonia will defer management to ICU and primary team. Regarding abnormal thyroid level will defer management to Primary team. We'll defer the rest of the medical management to the primary team For DVT prophylaxis: Continue subcu heparin 5000 units every 8 hours. Condition is very guarded. I have updated the patient's son via phone. Again will attempt to have the tina ent transferred to [facility] for escalation of care. Plan is discussed with his nurse. Rudi Radford M.D. Neuro-Hospitalist Time with Patient: Greater than 30
[2022-03-13] MEDS ORDERED: NOREPINEPHRINE 32 MG in SODIUM CHLORIDE 0.9% 218 ML IV SCH (15:30)
[2022-03-13 16:42] VITALS: RESP 24
--- NOTE | 2022-03-13 17:28 | P.PN ---
Subjective Progress Note Date: 03/13/22 Progress Note Date: 03/11/22 Patient seen today still with shortness of breath suffering from hypoxic respiratory failure with end-stage COPD. He did show some underlying pneumonia which she is currently on antibiotics for. He stated that he had a pretty rough weekend with shortness of breath. 03/12/2022 SVT during the night, spontaneously converted to sinus rhythm .cardiology consulted. Neuro workup in progress/radiology studies reviewed as per neurology; CTA pending. Maintained on both aspirin and Plavix, statin. Tachycardic, maintaining O2 sats in the 90s on 4 L nasal cannula. T-max 101.7, blood ,urine cultures and chest x-ray ordered. DISCHARGE SUMMERY: 03/13/2022 maintained on mechanical ventilation, FiO2 50%/+8 of PEEP, diprovan a nd Levophed drips. Received IV fluid boluses, IV fluids currently at 25 MLS per hour. CTA reported complete occlusion of posterior circulation. Neurology discussing with platform attendant regarding transferring patient to tertiary care center for neurosurgery services not available here. Patient's family requested that he be transferred to a facility that had neurosurgical Department this is currently in progress and as soon as bed is available the transfer will be made. Please include this report as the discharge summary list of medications and transfer paperwork will be sent. Objective - Vital Signs Vital signs: Vital Signs Temp 98.7 F 03/13/22 16:00 Pulse 62 03/13/22 16:30 Resp 24 03/13/22 16:30 BP 102/72 03/13/22 11:30 Pulse Ox 97 03/13/22 16:30 FiO2 50 03/13/22 16:00 Intake & Output 03/12/22 03/13/22 03/13/22 18:59 06:59 18:59 Intake Total 857.973 8884.938 3071.897 Output Total 545 630 345 Balance -613.895 3055.938 2726.897 Weight 99.7 kg 99.7 kg Intake: IV 220 1320 2355 ACETAMINOPHEN IV (For NPO 100 ) 1,000 mg In Empty Bag 1 bag @ 400 mls/hr IVPB Q6HR PRN Rx#:[id number] Invasive Line 1 20 30 30 Magnesium Sulfate-D5w Pmx 200 1 gm In Dextrose/Water 1 100ml.bag @ 100 mls/hr IVPB Q1H [facility] Rx#: [id number] Sodium Chloride 0.9% 1, 100 1290 2125 000 ml @ 125 mls/hr IV . Q8H [facility] Rx#:[id number] Intake, IV Titration 9.699 2442.938 356.897 Amount Dexmedetomidine/0.9% NaCl 14.748 (Pmx) 400 mcg In Empty Bag 1 bag @ 0.2 MCG/KG/HR 4.985 mls/hr IV .Q20H4M [facility] Rx#:[id number] Norepinephrine 32 mg In 3.209 Sodium Chloride 0.9% 218 ml @ 0.03 MCG/KG/MIN 1. 402 mls/hr IV .Q24H [facility] Rx#:[id number] Norepinephrine 4 mg In 193.655 245.398 Sodium Chloride 0.9% 250 ml @ 0.05 MCG/KG/MIN 18. 479 mls/hr IV .[id number] [facility] Rx#:[id number] Sodium Chloride 0.9% 1, 1000 000 ml @ 999 mls/hr IV . Q1H1M ONE Rx#:[id number] Sodium Chloride 0.9% 1, 1000 000 ml @ 999 mls/hr IV . Q1H1M ONE Rx#:[id number] propofoL 1,000 mg In 9.699 249.283 93.542 Empty Bag 1 bag @ 5 MCG/ KG/MIN 2.91 mls/hr IV . Q24H [facility] Rx#:[id number] Oral 0 Other 360 Output: Gastric Drainage 425 Urine 545 205 345 Other: Voiding Method Indwelling Catheter Indwelling Catheter Indwelling Catheter ABP, PAP, CO, CI - Last Documented Arterial Blood Pressure 148/76 - Exam - Exam GENERAL: Intubated, sedated.no distress. HEENT: Head is atraumatic, normocephalic. Neck is supple, no JVD. RESPIRATORY: Diminished CARDIOVASCULAR: Regular S1 and S2 ,systolic murmur barely audible. GASTROINTESTINAL: No distention noted. Abdomen soft and round. Normal active bowel sounds auscultated x 4 quadrants. INTEGUMENTARY: No cyanosis. No jaundice. No rashes noted. No cellulitis noted. EXTREMITIES: 2+ peripheral pulses. No evidence of peripheral edema. NEUROLOGIC: Unable to evaluate, patient intubated and sedated - Labs CBC & Chem 7: 09/28/22 05:19 03/13/22 05:19 Labs: Abnormal Lab Results - Last 24 Hours (Table) 03/12/22 03/13/22 03/13/22 Range/Units 18:15 05:19 05:19 WBC 15.2 H (3.8-10.6) k/uL Neutrophils # 13.1 H (1.3-7.7) k/uL ABG pH 7.26 L (7.35-7.45) ABG pCO2 54 H (35-45) mmHg ABG pO2 (83-108) mmHg ABG Total CO2 26 H (19-24) mmol/L ABG O2 Saturation 97.9 H (94-97) % Chloride 109 H (98-107) mmol/L Carbon Dioxide 21 L (22-30) mmol/L BUN 28 H (9-20) mg/dL Creatinine 1.53 H (0.66-1.25) mg/dL Glucose 124 H (74-99) mg/dL Calcium 7.4 L (8.4-10.2) mg/dL Total Bilirubin 1.5 H (0.2-1.3) mg/dL Total Protein 4.9 L (6.3-8.2) g/dL Albumin 2.7 L (3.5-5.0) g/dL 03/13/22 Range/Units 06:09 WBC (3.8-10.6) k/uL Neutrophils # (1.3-7.7) k/uL ABG pH (7.35-7.45) ABG pCO2 33 L (35-45) mmHg ABG pO2 68 L (83-108) mmHg ABG Total CO2 (19-24) mmol/L ABG O2 Saturation (94-97) % Chloride (98-107) mmol/L Carbon Dioxide (22-30) mmol/L BUN (9-20) mg/dL Creatinine (0.66-1.25) mg/dL Glucose (74-99) mg/dL Calcium (8.4-10.2) mg/dL Total Bilirubin (0.2-1.3) mg/dL Total Protein (6.3-8.2) g/dL Albumin (3.5-5.0) g/dL Microbiology - Last 24 Hours (Table) 03/12/22 14:11 Blood Culture - Preliminary Blood No Growth after 24 hours 03/12/22 23:32 Gram Stain - Preliminary Sputum Sputum Culture - Preliminary 03/12/22 14:20 Urine Culture - Final Urine,Catheterized Assessment and Plan Assessment: (1) Acute and chronic hypoxic and hypercapnic respiratory failure secondary to acute CVA Current Visit: Yes Status: Acute Code(s): J96.21 - ACUTE AND CHRONIC RESPIRATORY FAILURE WITH HYPOXIA SNOMED Code(s): 81643074 (2) Acute exacerbation of chronic obstructive pulmonary disease (COPD) Current Visit: Yes Status: Acute Code(s): J44.1 - CHRONIC OBSTRUCTIVE PULMONARY DISEASE W (ACUTE) EXACERBATION SNOMED Code(s): 518941657 (3) Pneumonia Current Visit: Yes Status: Acute Code(s): J18.9 - PNEUMONIA, UNSPECIFIED ORGANISM SNOMED Code(s): 833710850 (4) SVT (5) obesity, BMI 30.7 (6) obstructive sleep apnea (7) acute distress acute ischemic stroke, bilateral toni, left occipital as per neurology, in a patient with history of prior CVAs (8) hypertension (9) hypothyroidism Plan: Continue on current medication regime ,monitoring and symptomatic treatment. ICU management as per platform attendant. Transfer to tertiary center in progress as per neurology for neurosurgery services, which we do not have at this site .Prognosis guarded given multiple complex medical issues. Patient will be transferred at the request of patient's family later on tonight transfer is in progress please uses for discharge transfer summary. The impression and plan of care has been dictated as directed. : I performed a history and examination of this patient, discussed the same with the dictator. I agree with the dictator's note ,documented as a scribe. Any additional findings or plans will be noted.
[2022-03-13] MEDS: ATORVASTATIN 80 MG TAB PO SCH (20:00)
[2022-03-13 20:09] VITALS: TEMP 99
[2022-03-13 20:28] VITALS: PULSE 87
--- NOTE | 2022-03-13 20:30 | OP ---
OPERATIVE REPORT PROCEDURE PERFORMED: Placement of a left subclavian central line/triple-lumen catheter. PREOPERATIVE DIAGNOSIS: Acute brainstem CVA. POSTOPERATIVE DIAGNOSIS: Acute brainstem CVA. ANESTHESIA USED: 2 mL of 1% lidocaine. DESCRIPTION OF PROCEDURE: The patient was placed in a supine position. The area below the left clavicle was prepared in a sterile fashion, drapes were applied. The area below the clavicle was locally anesthetized with lidocaine. Then, using the infraclavicular approach, the left subclavian vein was easily cannulated, and a guidewire was placed. The area around the guidewire was dilated, then a triple-lumen catheter was inserted over the guidewire, and the guidewire was removed. Good blood flow noted in the 3 different ports of the triple-lumen catheter. Line was secured using 3-0 silk sutures. Postoperative chest x-ray showed adequate placement of the line, and no evidence of any immediate complications. MMODL / IJN: [id number] /
[2022-03-13] MEDS ORDERED: TICAGRELOR 90 MG TAB PO SCH (21:00)
[2022-03-14] MEDS ORDERED: ASPIRIN 81 MG PO SCH (09:00)
== END 2022-03-13 21:12 | disposition short-term general hospital (02) | DRG 64 ==
LOC: EC 09:43 → 3SCARD 10:46 → 2SICU 03-12 12:10
PROVIDERS: ADMIT Family Medicine; ATTEND Family Medicine
PROC: 0D9670Z Drainage of Stomach with Drainage Device, Via Natural or Artificial Opening (ICD-10-PCS; principal; 2022-03-12)
PROC: 3E033XZ Introduction of Vasopressor into Peripheral Vein, Percutaneous Approach (ICD-10-PCS; principal; 2022-03-12)
PROC: 5A1945Z Respiratory Ventilation, 24-96 Consecutive Hours (ICD-10-PCS; principal; 2022-03-12)
PROC: 0BH17EZ Insertion of Endotracheal Airway into Trachea, Via Natural or Artificial Opening (ICD-10-PCS; principal; 2022-03-12)
PROC: 5A09357 Assistance with Respiratory Ventilation, Less than 24 Consecutive Hours, Continuous Positive Airway Pressure (ICD-10-PCS; principal; 2022-03-12)
PROC: 02HV33Z Insertion of Infusion Device into Superior Vena Cava, Percutaneous Approach (ICD-10-PCS; 2022-03-13)
PROC: 3E0G76Z Introduction of Nutritional Substance into Upper GI, Via Natural or Artificial Opening (ICD-10-PCS; 2022-03-13)
DX: I63.81 Other cerebral infarction due to occlusion or stenosis of small artery (principal); J18.9 Pneumonia, unspecified organism; J96.21 Acute and chronic respiratory failure with hypoxia; J96.22 Acute and chronic respiratory failure with hypercapnia; G81.91 Hemiplegia, unspecified affecting right dominant side; I47.1 Supraventricular tachycardia; J44.1 Chronic obstructive pulmonary disease with (acute) exacerbation; J44.0 Chronic obstructive pulmonary disease with (acute) lower respiratory infection; H53.2 Diplopia; R47.1 Dysarthria and anarthria; S00.03XA Contusion of scalp, initial encounter; R26.2 Difficulty in walking, not elsewhere classified; I65.1 Occlusion and stenosis of basilar artery; I65.21 Occlusion and stenosis of right carotid artery; G46.3 Brain stem stroke syndrome; I95.9 Hypotension, unspecified; Z91.120 Patient's intentional underdosing of medication regimen due to financial hardship; Z91.14 Patient's other noncompliance with medication regimen; I10 Essential (primary) hypertension; E03.9 Hypothyroidism, unspecified; E66.9 Obesity, unspecified; Z68.31 Body mass index [BMI] 31.0-31.9, adult; F17.200 Nicotine dependence, unspecified, uncomplicated; G47.33 Obstructive sleep apnea (adult) (pediatric); H55.00 Unspecified nystagmus; Z86.73 Personal history of transient ischemic attack (TIA), and cerebral infarction without residual deficits; Z79.899 Other long term (current) drug therapy; Z79.890 Hormone replacement therapy
CPT/HCPCS: 36415; 70450; 70496; 70498; 70544; 70549; 70551; 71045; 71046; 73502; 80053; 80061; 80306; 80320; 82805; 83036; 83735; 84439; 84443; 84484; 85025; 85610; 85730; 87040; 87070; 87086; 87205; 87635; 93005; 93308; 93880; 94002; 94003; 94660; 96360; 99285